=== PATIENT | female | born 1990 | race African-American/Black ===

== ENCOUNTER 2019-11-02 16:08 | Emergency (ER) | payer OTHER ==
[2019-11-02] MEDS ORDERED: SODIUM CHLORIDE 0.9% 1,000 ML IV ONE (16:51)
--- NOTE | 2019-11-02 17:09 | ED ---
Female Urogenital HPI - General Chief complaint: Abdominal Pain Stated complaint: Cramping, spotting Time Seen by Provider: 11/02/19 16:19 Source: patient, RN notes reviewed, old records reviewed Mode of arrival: ambulatory Limitations: no limitations - History of Present Illness Initial comments: This is a 29-year-old female presents today for evaluation regards to positive 12 weeks per dates. She has had one prior ultrasound early early in . This is her second with no problems the original . No recent travel history no sick contacts no abdominal pain she does get some cramping did have some spotting today some nausea with no vomiting. Denying any fevers. No other significant complaints MD Complaint: vaginal bleeding (Spotting), pelvic pain (Cramping) -: hour(s) Location: suprapubic, LLQ Radiation: suprapubic, LLQ Severity: mild Severity scale (1-10): 2 Quality: cramping Consistency: intermittent Improves with: none Worsens with: none Last Menstrual Period: 08/06/19 Patient : Yes Associated Symptoms: vaginal bleeding, nausea/vomiting, loss of appetite - Related Data Allergies Allergy/AdvReac Type Severity Reaction Status Date / Time Latex, Natural Rubber Allergy Swelling Verified 11/02/19 16:16 Review of Systems ROS Statement: Those systems with pertinent positive or pertinent negative responses have been documented in the HPI. ROS Other: All systems not noted in ROS Statement are negative. Past Medical History Past Medical History: No Reported History History of Any Multi-Drug Resistant Organisms: None Reported Additional Past Surgical History / Comment(s): D&C Past Psychological History: Depression Smoking Status: Never smoker Past Alcohol Use History: None Reported Past Drug Use History: None Reported General Exam Limitations: no limitations General appearance: alert, in no apparent distress Head exam: Present: atraumatic, normocephalic, normal inspection Eye exam: Present: normal appearance, PERRL, EOMI. Absent: scleral icterus, conjunctival injection, periorbital swelling ENT exam: Present: normal exam, mucous membranes moist Neck exam: Present: normal inspection. Absent: tenderness, meningismus, lymphadenopathy Respiratory exam: Present: normal lung sounds bilaterally. Absent: respiratory distress, wheezes, rales, rhonchi, stridor Cardiovascular Exam: Present: regular rate, normal rhythm, normal heart sounds. Absent: systolic murmur, diastolic murmur, rubs, gallop, clicks GI/Abdominal exam: Present: soft, normal bowel sounds. Absent: distended, tenderness, guarding, rebound, rigid Extremities exam: Present: normal inspection, full ROM, normal capillary refill. Absent: tenderness, pedal edema, joint swelling, calf tenderness Back exam: Present: normal inspection Neurological exam: Present: alert, oriented X3, CN II-XII intact Psychiatric exam: Present: normal affect, normal mood Skin exam: Present: warm, dry, intact, normal color. Absent: rash Course Vital Signs 11/02/19 11/02/19 16:12 19:11 Temperature 98.3 F 98 F Pulse Rate 89 82 Respiratory 20 16 Rate Blood Pressure 115/76 101/73 O2 Sat by Pulse 98 99 Oximetry Medical Decision Making - Medical Decision Making 9 female ER with early positive IUP with mild bleeding. Patient will follow up with OB as directed. Patient is in no acute distress currently no significant pain again positive IUP on ultrasound - Lab Data Result diagrams: 11/02/19 16:43 11/02/19 16:43 Lab Results 11/02/19 11/02/19 11/02/19 Range/Units 16:43 16:43 16:43 WBC 6.3 (3.8-10.6) k/uL RBC 4.59 (3.80-5.40) m/uL Hgb 13.0 (11.4-16.0) gm/dL Hct 39.9 (34.0-46.0) % MCV 86.8 (80.0-100.0) fL MCH 28.4 (25.0-35.0) pg MCHC 32.7 (31.0-37.0) g/dL RDW 12.5 (11.5-15.5) % Plt Count 351 (150-450) k/uL Neutrophils % 71 % Lymphocytes % 19 % Monocytes % 4 % Eosinophils % 3 % Basophils % 2 % Neutrophils # 4.4 (1.3-7.7) k/uL Lymphocytes # 1.2 (1.0-4.8) k/uL Monocytes # 0.2 (0-1.0) k/uL Eosinophils # 0.2 (0-0.7) k/uL Basophils # 0.1 (0-0.2) k/uL PT (9.0-12.0) sec INR (<1.2) APTT (22.0-30.0) sec Sodium 136 L (137-145) mmol/L Potassium 3.8 (3.5-5.1) mmol/L Chloride 103 (98-107) mmol/L Carbon Dioxide 23 (22-30) mmol/L Anion Gap 10 mmol/L BUN 4 L (7-17) mg/dL Creatinine 0.50 L (0.52-1.04) mg/dL Est GFR (CKD-EPI)AfAm >90 (>60 ml/min/1.73 sqM) Est GFR (CKD-EPI)NonAf >90 (>60 ml/min/1.73 sqM) Glucose 102 H (74-99) mg/dL Calcium 9.3 (8.4-10.2) mg/dL Total Bilirubin 0.3 (0.2-1.3) mg/dL AST 17 (14-36) U/L ALT 11 (4-34) U/L Alkaline Phosphatase 67 (38-126) U/L Total Protein 7.0 (6.3-8.2) g/dL Albumin 4.0 (3.5-5.0) g/dL HCG, Quant 64096.9 mIU/mL Urine Color Urine Appearance (Clear) Urine pH (5.0-8.0) Ur Specific [place] (1.001-1.035) Urine Protein (Negative) Urine Glucose (UA) (Negative) Urine Ketones (Negative) Urine Blood (Negative) Urine Nitrite (Negative) Urine Bilirubin (Negative) Urine Urobilinogen (<2.0) mg/dL Ur Leukocyte Esterase (Negative) Urine RBC (0-5) /hpf Urine WBC (0-5) /hpf Ur Squamous Epith Cells (0-4) /hpf Urine Bacteria (None) /hpf Urine Mucus (None) /hpf Urine HCG, Qual (Not Detectd) Blood Type A Positive Blood Type Recheck No Previous Record Bld Type Recheck Status [facility] ONLY 11/02/19 11/02/19 11/02/19 Range/Units 16:43 16:43 16:43 WBC (3.8-10.6) k/uL RBC (3.80-5.40) m/uL Hgb (11.4-16.0) gm/dL Hct (34.0-46.0) % MCV (80.0-100.0) fL MCH (25.0-35.0) pg MCHC (31.0-37.0) g/dL RDW (11.5-15.5) % Plt Count (150-450) k/uL Neutrophils % % Lymphocytes % % Monocytes % % Eosinophils % % Basophils % % Neutrophils # (1.3-7.7) k/uL Lymphocytes # (1.0-4.8) k/uL Monocytes # (0-1.0) k/uL Eosinophils # (0-0.7) k/uL Basophils # (0-0.2) k/uL PT 9.7 (9.0-12.0) sec INR 0.9 (<1.2) APTT 25.5 (22.0-30.0) sec Sodium (137-145) mmol/L Potassium (3.5-5.1) mmol/L Chloride (98-107) mmol/L Carbon Dioxide (22-30) mmol/L Anion Gap mmol/L BUN (7-17) mg/dL Creatinine (0.52-1.04) mg/dL Est GFR (CKD-EPI)AfAm (>60 ml/min/1.73 sqM) Est GFR (CKD-EPI)NonAf (>60 ml/min/1.73 sqM) Glucose (74-99) mg/dL Calcium (8.4-10.2) mg/dL Total Bilirubin (0.2-1.3) mg/dL AST (14-36) U/L ALT (4-34) U/L Alkaline Phosphatase (38-126) U/L Total Protein (6.3-8.2) g/dL Albumin (3.5-5.0) g/dL HCG, Quant mIU/mL Urine Color Yellow Urine Appearance Cloudy H (Clear) Urine pH 6.5 (5.0-8.0) Ur Specific [place] 1.021 (1.001-1.035) Urine Protein Trace H (Negative) Urine Glucose (UA) Negative (Negative) Urine Ketones Trace H (Negative) Urine Blood Negative (Negative) Urine Nitrite Negative (Negative) Urine Bilirubin Negative (Negative) Urine Urobilinogen <2.0 (<2.0) mg/dL Ur Leukocyte Esterase Large H (Negative) Urine RBC 4 (0-5) /hpf Urine WBC 6 H (0-5) /hpf Ur Squamous Epith Cells 5 H (0-4) /hpf Urine Bacteria Rare H (None) /hpf Urine Mucus Few H (None) /hpf Urine HCG, Qual Detected (Not Detectd) Blood Type Blood Type Recheck Bld Type Recheck Status - Radiology Data Radiology results: report reviewed (Ultrasound OB shows positive IUP), image reviewed Disposition Clinical Impression: Threatened Disposition: HOME SELF-CARE Condition: Good Instructions (If sedation given, give patient instructions): Threatened Miscarriage (ED) Is patient prescribed a controlled substance at d/c from ED?: No Referrals: Milena Duke MD [STAFF PHYSICIAN] - 1-2 days None,Stated [Primary Care Provider] - 1-2 days
[2019-11-02 17:10] LABS: Basophils # (A) 0.1 k/uL (0-0.2); Basophils % (A) 2 %; Eosinophils # (A) 0.2 k/uL (0-0.7); Eosinophils % (A) 3 %; HCT 39.9 % (34.0-46.0); Lymphocytes # (A) 1.2 k/uL (1.0-4.8); Lymphocytes % (A) 19 %; MCH 28.4 pg (25.0-35.0); MCHC 32.7 g/dL (31.0-37.0); MCV 86.8 fL (80.0-100.0); Mean Platelet Volume 7.2; Monocytes # (A) 0.2 k/uL (0-1.0); Monocytes % (A) 4 %; Neutrophils # (A) 4.4 k/uL (1.3-7.7); Neutrophils % (A) 71 %; Platelet Count 351 k/uL (150-450); RBC 4.59 m/uL (3.80-5.40); RDW 12.5 % (11.5-15.5); WBC 6.3 k/uL (3.8-10.6)
[2019-11-02 17:15] LABS: Appearance,Urine Cloudy (Clear); Bacteria,Urine Rare /hpf; Bilirubin,Urine Negative (Negative); Blood,Urine Negative (Negative); Color,Urine Yellow; Glucose,Urine (UA) Negative (Negative); Ketones,Urine Trace (Negative); Leukocyte Esterase,Urine Large (Negative); Mucus,Urine Few /hpf; Nitrite,Urine Negative (Negative); PH, Urine 6.5 (5.0-8.0); Protein,Urine Trace (Negative); RBC,Urine 4 /hpf (0-5); Specific Gravity,Urine 1.021 (1.001-1.035); Squamous Epithelial Cell,Urine 5 /hpf (0-4); Urobilinogen,Urine <2.0 mg/dL (<2.0); WBC,Urine 6 /hpf (0-5)
[2019-11-02 17:19] LABS: ALT 11 U/L (4-34); AST 17 U/L (14-36); African American GFR (CKD) >90 (>60 ml/min/1.73 sqM); Alkaline Phosphatase 67 U/L (38-126); Anion Gap 10 mmol/L; Blood Urea Nitrogen 4 mg/dL (7-17); Calcium 9.3 mg/dL (8.4-10.2); Carbon Dioxide 23 mmol/L (22-30); Chloride 103 mmol/L (98-107); Glucose 102 mg/dL (74-99); Non-African American GFR(CKD) >90 (>60 ml/min/1.73 sqM); Potassium 3.8 mmol/L (3.5-5.1); Sodium 136 mmol/L (137-145); Total Bilirubin 0.3 mg/dL (0.2-1.3)
[2019-11-02 17:36] LABS: INR 0.9 (<1.2); Partial Thromboplastin Time 25.5 sec (22.0-30.0); Prothrombin Time 9.7 sec (9.0-12.0)
[2019-11-02 18:03] LABS: HCG,Quantitative Serum 62532.9 mIU/mL
--- NOTE | 2019-11-02 18:12 | US ---
EXAMINATION TYPE: Transabdominal DATE OF EXAM: 11/02/2019 5:47 PM COMPARISON: NONE CLINICAL HISTORY: pain. Cramping and spotting, 3, para 1, miscarriage EXAM PERFORMED: Transabdominal (TA) EXAM MEASUREMENTS: GESTATIONAL AGE / DATING Physician Established: Not established yet Dates by LMP: (12 weeks/4 days) EDC: 05/12/2020 Dates by First Scan: This is 1st scan Dates by Current Scan for: (12 weeks/3 days) EDC: 05/13/2020 MATERNAL ANATOMY Uterus: 11.8 x 8.0 x 7.7cm, anteverted Right Ovary: 3.3 x 1.7 x 1.6cm Left Ovary: 2.9 x 1.4 x 2.1cm Post CDS / Adnexa: wnl Presence of free fluid: no Presence of corpus luteal cyst: not seen at this time Presence of subchorionic bleed: no GESTATION / SURVEY CRL: 5.9cm (12 weeks/3 days) Yolk Sac (normal less than 6mm): not seen Heart Rate: 162 bpm Rhythm: Normal IUP: Viable IUP Nuchal Translucency 10-14wks (normal less than 3mm): 1.2mm Date of LMP: 08/06/2019 Beta HcG (if available): Not available at time of exam Viable single IUP measuring 12 weeks 3 days with a heart rate of 162bpm and an estimated delivery la nena e of 05/13/2020. IMPRESSION: No complicating process seen.
[2019-11-02 19:11] VITALS: BP 101/73; PULSE 82; RESP 16; TEMP 98
== END 2019-11-02 19:11 | disposition home or self-care (01) ==
LOC: EC 16:08
DX: O20.0 Threatened abortion (principal); O21.9 Vomiting of pregnancy, unspecified; Z91.040 Latex allergy status; Z3A.12 12 weeks gestation of pregnancy
CPT/HCPCS: 36415; 76801; 76813; 80053; 81001; 81025; 84702; 85025; 85610; 85730; 86900; 86901; 96360; 96361; 99284

== ENCOUNTER 2019-12-01 05:54 | Emergency (ER) | payer OTHER ==
[2019-12-01 06:03] VITALS: TEMP 98.4
--- NOTE | 2019-12-01 06:20 | ED ---
General Adult HPI - General Chief complaint: Vaginal Bleeding Stated complaint: 12wks cramping/bleeding Time Seen by Provider: 12/01/19 06:06 Source: patient, RN notes reviewed Mode of arrival: ambulatory Limitations: no limitations - History of Present Illness Initial comments: 29-year-old female presents emergency Department with chief complaint of vaginal bleeding and . Patient is A1 currently 13 weeks and is scheduling an appointment with Dr. Santillan. Patient states that she has had ultrasound which showed intrauterine states that she woke up some cramping and states that her to urinate. She states she passed 2 clots but states it has stopped now. Patient denies any fevers, chills, vomiting or diarrhea she's had some mild constipation. - Related Data Previous Rx's Medication Instructions Recorded Cephalexin [Keflex] 500 mg PO Q8HR #21 cap 12/01/19 Allergies Allergy/AdvReac Type Severity Reaction Status Date / Time Latex, Natural Rubber Allergy Swelling Verified 12/01/19 06:03 Review of Systems ROS Statement: Those systems with pertinent positive or pertinent negative responses have been documented in the HPI. ROS Other: All systems not noted in ROS Statement are negative. Past Medical History Past Medical History: No Reported History History of Any Multi-Drug Resistant Organisms: None Reported Additional Past Surgical History / Comment(s): D&C, Past Psychological History: Depression Smoking Status: Never smoker Past Alcohol Use History: None Reported Past Drug Use History: None Reported General Exam Limitations: no limitations General appearance: alert, in no apparent distress Head exam: Present: atraumatic, normocephalic, normal inspection Eye exam: Present: normal appearance, PERRL, EOMI. Absent: scleral icterus, conjunctival injection, periorbital swelling ENT exam: Present: normal exam, normal oropharynx, mucous membranes moist Neck exam: Present: normal inspection, full ROM. Absent: tenderness, meningismus, lymphadenopathy Respiratory exam: Present: normal lung sounds bilaterally. Absent: respiratory distress, wheezes, rales, rhonchi, stridor Cardiovascular Exam: Present: normal rhythm, tachycardia, normal heart sounds. Absent: systolic murmur, diastolic murmur, rubs, gallop, clicks GI/Abdominal exam: Present: soft, normal bowel sounds. Absent: distended, tenderness, guarding, rebound, rigid Back exam: Absent: CVA tenderness (R), CVA tenderness (L) Course Vital Signs 12/01/19 05:58 Temperature 98.4 F Pulse Rate 114 H Respiratory 18 Rate Blood Pressure 117/83 O2 Sat by Pulse 98 Oximetry Medical Decision Making - Medical Decision Making Ultrasound showed normal heart tone, patient has evidence of urinary tract infection she was given Rocephin IM emergency from. Patient be discharged on Keflex. Patient is discharged in stable condition return parameters were discussed. - Lab Data Lab Results 12/01/19 Range/Units 06:15 Urine Color Light Yellow Urine Appearance Cloudy H (Clear) Urine pH 6.0 (5.0-8.0) Ur Specific [place] 1.007 (1.001-1.035) Urine Protein 1+ H (Negative) Urine Glucose (UA) Negative (Negative) Urine Ketones 2+ H (Negative) Urine Blood Moderate H (Negative) Urine Nitrite Negative (Negative) Urine Bilirubin Negative (Negative) Urine Urobilinogen <2.0 (<2.0) mg/dL Ur Leukocyte Esterase Large H (Negative) Urine RBC 10 H (0-5) /hpf Urine WBC >182 H (0-5) /hpf Ur Squamous Epith Cells 4 (0-4) /hpf Urine Bacteria Few H (None) /hpf Urine Mucus Rare H (None) /hpf Disposition Clinical Impression: Threatened miscarriage, UTI (urinary tract infection) Disposition: HOME SELF-CARE Condition: Stable Instructions (If sedation given, give patient instructions): Urinary Tract Infection in Women (ED) Additional Instructions: Call your [facility]IT OPERATOR to follow-up. Please return to the Emergency Department if symptoms worsen or any other concerns. Prescriptions: Cephalexin [Keflex] 500 mg PO Q8HR #21 cap Is patient prescribed a controlled substance at d/c from ED?: No Referrals: Jerome Riggs MD [Primary Care Provider] - 1-2 days Time of Disposition: 07:23
[2019-12-01 06:32] LABS: Appearance,Urine Cloudy (Clear); Bacteria,Urine Few /hpf; Bilirubin,Urine Negative (Negative); Blood,Urine Moderate (Negative); Color,Urine Light Yellow; Glucose,Urine (UA) Negative (Negative); Ketones,Urine 2+ (Negative); Leukocyte Esterase,Urine Large (Negative); Mucus,Urine Rare /hpf; Nitrite,Urine Negative (Negative); Protein,Urine 1+ (Negative); RBC,Urine 10 /hpf (0-5); Specific Gravity,Urine 1.007 (1.001-1.035); Squamous Epithelial Cell,Urine 4 /hpf (0-4); Urobilinogen,Urine <2.0 mg/dL (<2.0); WBC,Urine >182 /hpf (0-5)
[2019-12-01] MEDS ORDERED: cefTRIAXone 1,000 MG VIAL (IM USE) IM STA (06:42)
--- NOTE | 2019-12-01 07:21 | US ---
EXAMINATION TYPE: US OB limited DATE OF EXAM: 12/01/2019 COMPARISON: NONE CLINICAL HISTORY: check heart tones. Spotting, UTI, check heart tones EXAM PERFORMED: Transabdominal (TA) GESTATIONAL AGE / DATING Physician Established: (16 weeks/4 days) EDC: 05/13/20 No growth performed on today?s study per ordering physician SURVEY HEART RATE: 162 bpm RHYTHM: Normal IMPRESSION: heart rate of 162 bpm is within normal limits. Regular rhythm is seen.
[2019-12-01 07:33] VITALS: BP 118/71; PULSE 103; RESP 16
== END 2019-12-01 07:31 | disposition home or self-care (01) ==
LOC: EC 05:54
DX: O20.0 Threatened abortion (principal); O23.42 Unspecified infection of urinary tract in pregnancy, second trimester; Z3A.16 16 weeks gestation of pregnancy; Z91.040 Latex allergy status; Z98.890 Other specified postprocedural states
CPT/HCPCS: 81001; 87086; 76815; 96372; 99284; J0696

== ENCOUNTER 2019-12-15 18:42 | Outpatient (CLI) | payer OTHER ==
[2019-12-15 19:54] LABS: Appearance,Urine Cloudy (Clear); Bacteria,Urine Rare /hpf; Bilirubin,Urine Negative (Negative); Blood,Urine Moderate (Negative); Color,Urine Yellow; Glucose,Urine (UA) Negative (Negative); Ketones,Urine Negative (Negative); Leukocyte Esterase,Urine Large (Negative); Mucus,Urine Occasional /hpf; Nitrite,Urine Negative (Negative); PH, Urine 7.5 (5.0-8.0); Protein,Urine 2+ (Negative); RBC,Urine >182 /hpf (0-5); Specific Gravity,Urine 1.024 (1.001-1.035); Urobilinogen,Urine <2.0 mg/dL (<2.0); WBC,Urine 92 /hpf (0-5)
[2019-12-15 21:01] VITALS: BP 115/59; PULSE 97; RESP 16; TEMP 97.1
--- NOTE | 2019-12-22 14:57 | P.MSEPDOC ---
Presenting Problems - Arrival Data Date of Arrival on Unit: 12/15/19 Time of Arrival on Unit: 18:42 Mode of Transport: Ambulatory - Complaint OB-Reason for Admission/Chief Complaint: Pain Comment: Previous UTI that is not impoving, pain and bleeding when urinating. Medical History - Information : 3 Para: 1 Term: 1 : 0 Abortions: Spontaneous or Elective: 1 Number of Living Children: 1 - Gestational Age Gestational Age by EMMANUEL (wks/days): 18 Weeks and 4 Days Review of Systems - Review of Systems Constitutional: No problems Breast: No problems ENT: No problems Cardiovascular: No problems Respiratory: No problems Gastrointestinal: No problems Genitourinary: Dysuria, Urgency, Increased frequency Musculoskeletal: No problems Neurological: No problems Skin: No problems Vital Signs - Temperature Temperature: 97.1 F Temperature Source: Temporal Artery Scan - Pulse Right Brachial Pulse Rate: 97 Pulse Assessment Method: Automatic Cuff - Respirations Respiratory Rate: 16 Oxygen Delivery Method: Room Air O2 Sat by Pulse Oximetry: 100 - Blood Pressure Right Arm Blood Pressure: 115/59 Blood Pressure Mean: 77 Blood Pressure Source: Automatic Cuff Medical Screen Scoring (Pre) - Cervical Exam Dilation: Exam Deferred Effacement: Exam Deferred - Uterine Contractions Frequency: N/A Duration: N/A Intensity: N/A - Maternal Vital Signs Maternal Temperature: N/A Signs of Preeclampsia: N/A Maternal Respirations: N/A - Maternal Trauma Maternal Trauma: N/A - Total Score - Baby A Total Score - Baby A: 0 - Total Score - Baby B Total Score - Baby B: 0 - Total Score - Baby C Total Score - Baby C: 0 - Level of Risk - Baby A Level of Risk - Baby A: Low (0-5) - Level of Risk - Baby B Level of Risk - Baby B: Low (0-5) - Level of Risk - Baby C Level of Risk - Baby C: Low (0-5) Physician Notification (Pre) - Physician Notified Physician Notified Date: 12/15/19 Physician Notified Time: 20:38 New Order Received: Yes - Notification Comment Comment: R dopplered [id number], UA results reported, pt to finish antibiotics for UTI, call Thursday for results of urine culture. Disposition - Disposition OB Disposition: Discharge to home, Written follow up instructions reviewed Discharge Date: 12/15/19 Discharge Time: 20:45 I agree with the RN Medical Screening Exam: Yes Risk & Benefit of care provided described in d/c instruction: Yes Diagnosis: URINARY TRACT INFECTION, SITE NOT SPECIFIED
== END 2019-12-15 20:45 | disposition home or self-care (01) ==
LOC: FBPOP 18:42
PROVIDERS: ATTEND Obstetrics & Gynecology
DX: O23.42 Unspecified infection of urinary tract in pregnancy, second trimester (principal); Z3A.18 18 weeks gestation of pregnancy
CPT/HCPCS: 82731; 81001; 87086; G0463; 99213

== ENCOUNTER 2020-03-09 18:58 | Emergency (ER) | payer OTHER ==
--- NOTE | 2020-03-09 20:35 | US ---
EXAMINATION TYPE: US venous doppler duplex LE DATE OF EXAM: 03/09/2020 8:28 PM COMPARISON: NONE CLINICAL HISTORY: Lower extremity edema. Edema right thigh. Patient 7 months SIDE PERFORMED: Bilateral TECHNIQUE: The lower extremity deep venous system is examined utilizing real time linear array sonog alexandra with graded compression, doppler sonography and color-flow sonography. VESSELS IMAGED: External Iliac Vein (EIV) Common Femoral Vein Deep Femoral Vein Greater Saphenous Vein * Femoral Vein Popliteal Vein Small Saphenous Vein * Proximal Calf Veins (* superficial vessels) Right Leg: No evidence of DVT Left Leg: No evidence of DVT IMPRESSION: Normal exam. No evidence of bilateral leg deep vein thrombosis.
--- NOTE | 2020-03-09 20:43 | ED ---
Extremity Problem HPI - General Chief complaint: Extremity Problem,Nontraumatic Stated complaint: poss blood clot Time Seen by Provider: 03/09/20 19:07 Source: patient Mode of arrival: ambulatory Limitations: no limitations - History of Present Illness Initial comments: Patient is a 29-year-old female, 28 weeks presenting to emergency Department with chief complaint of possible blood clot. Patient states in the last few days she has noticed an "bump" on the right upper thigh. Patient reports she spoke with her OB, , who advised the patient to come to the ED for further evaluation. Patient does report shortness of breath but states that is her baseline due to her . Patient denies unilateral leg swelling but does report bilateral lower extremity achiness that has been gradually increasing throughout her . Patient denies hemoptysis cough, shortness of breath, chest pain. Denies any night sweats or chills. Denies any irritation - Related Data Home Medications Medication Instructions Recorded Confirmed Pnv No.95/Ferrous Fum/Folic AC 1 each PO DAILY 12/15/19 12/15/19 [ Multivitamin Tablet] Previous Rx's Medication Instructions Recorded Cephalexin [Keflex] 500 mg PO Q8HR #21 cap 12/01/19 Allergies Allergy/AdvReac Type Severity Reaction Status Date / Time Latex, Natural Rubber Allergy Swelling Verified 03/09/20 19:04 Review of Systems ROS Statement: Those systems with pertinent positive or pertinent negative responses have been documented in the HPI. ROS Other: All systems not noted in ROS Statement are negative. Past Medical History Past Medical History: No Reported History History of Any Multi-Drug Resistant Organisms: None Reported Additional Past Surgical History / Comment(s): D&C, Past Psychological History: No Psychological Hx Reported Smoking Status: Never smoker Past Alcohol Use History: None Reported Past Drug Use History: None Reported General Exam Limitations: no limitations General appearance: alert, in no apparent distress Head exam: Present: atraumatic, normocephalic, normal inspection Eye exam: Present: normal appearance, PERRL Pupils: Present: normal accommodation ENT exam: Present: normal exam, normal oropharynx, mucous membranes moist Neck exam: Present: normal inspection, full ROM Respiratory exam: Present: normal lung sounds bilaterally. Absent: respiratory distress, wheezes, rales Cardiovascular Exam: Present: regular rate, normal rhythm, normal heart sounds Extremities exam: Present: full ROM, normal capillary refill, calf tenderness (Bilateral calf tenderness), other (+2 ulnar and radial pulses bilaterally. +2 dorsalis pedis and posterior tibialis bilaterally.). Absent: normal inspection (Mass noticed on the right upper thigh, anterior aspect. No signs of cellulitic changes. Nontender.), tenderness Back exam: Present: normal inspection, full ROM Neurological exam: Present: alert, oriented X3 Psychiatric exam: Present: normal affect, normal mood Skin exam: Present: warm, dry, intact, normal color Course Vital Signs 03/09/20 18:59 Temperature 98.2 F Pulse Rate 90 Respiratory 18 Rate Blood Pressure 124/64 O2 Sat by Pulse 98 Oximetry Medical Decision Making - Medical Decision Making Patient is a 29-year-old female, 20 weeks , presenting to emergency Department with a chief complaint of possible blood clot. Patient was advised to come to the ED for ultrasound to rule out a blood clot. Patient does report shortness of breath but states that is her baseline due to her . Bilateral lower extremity achiness throughout . Bilateral lower extremity ultrasound shows no signs of a DVT. Return parameters thoroughly discussed with patient is understanding and agreeable. Patient advised to follow with her OB. Case discussed with physician. Disposition Clinical Impression: Leg pain, right Disposition: HOME SELF-CARE Condition: Serious Instructions (If sedation given, give patient instructions): Deep Vein Thrombosis (DC) Additional Instructions: Follow-up with Dr. Burrell. Return to emergency department if symptoms worsen. Is patient prescribed a controlled substance at d/c from ED?: No Referrals: None,Stated [Primary Care Provider] - 1-2 days Time of Disposition: 20:43
[2020-03-09 21:40] VITALS: BP 121/69; PULSE 85; RESP 16; TEMP 98
== END 2020-03-09 21:44 | disposition home or self-care (01) ==
LOC: EC 18:58
DX: O26.893 Other specified pregnancy related conditions, third trimester (principal); M79.604 Pain in right leg; Z3A.28 28 weeks gestation of pregnancy; Z91.040 Latex allergy status
CPT/HCPCS: 93970; 99283

== ENCOUNTER 2020-04-27 | Outpatient (CLI) | payer OTHER ==
--- NOTE | 2020-04-27 07:04 | P.MSEPDOC ---
Presenting Problems - Arrival Data Date of Arrival on Unit: 04/27/20 Time of Arrival on Unit: 02:26 Mode of Transport: Wheelchair - Complaint OB-Reason for Admission/Chief Complaint: Other Comment: swelling of feet/ankles/legs Medical History - Information : 3 Para: 1 Term: 1 : 0 Abortions: Spontaneous or Elective: 1 Number of Living Children: 1 - Gestational Age Gestational Age by EMMANUEL (wks/days): 37 Weeks and 5 Days Review of Systems - Review of Systems Constitutional: No problems Breast: No problems ENT: No problems Cardiovascular: No problems Respiratory: No problems Gastrointestinal: No problems Genitourinary: No problems Musculoskeletal: No problems Neurological: No problems Skin: No problems Vital Signs - Temperature Temperature: 97.4 F Temperature Source: Temporal Artery Scan - Pulse Right Pulse Rate: 100 Pulse Assessment Method: Pulse Oximetry - Respirations Respiratory Rate: 16 O2 Sat by Pulse Oximetry: 97 - Blood Pressure Right Arm Blood Pressure: 110/55 Blood Pressure Mean: 73 Blood Pressure Source: Automatic Cuff Medical Screen Scoring (Pre) - Cervical Exam Dilation: Exam Deferred Effacement: Exam Deferred - Uterine Contractions Frequency: N/A Duration: N/A Intensity: N/A - Maternal Vital Signs Maternal Temperature: N/A Maternal Blood Pressure: N/A Signs of Preeclampsia: N/A Maternal Respirations: N/A - Maternal Trauma Maternal Trauma: N/A - Assessment - Baby A Baseline FHR: 120 Heart Rate - NICHD Category: Category I (Normal) = 0 NST: Reactive Position: N/A Station: N/A - Total Score - Baby A Total Score - Baby A: 0 - Total Score - Baby B Total Score - Baby B: 0 - Total Score - Baby C Total Score - Baby C: 0 - Level of Risk - Baby A Level of Risk - Baby A: Low (0-5) - Level of Risk - Baby B Level of Risk - Baby B: Low (0-5) - Level of Risk - Baby C Level of Risk - Baby C: Low (0-5) Physician Notification (Pre) - Physician Notified Physician Notified Date: 04/27/20 Physician Notified Time: 03:05 - Notification Comment Comment: Dr Acevedo responded to page. Reported on pt's c/o swelling and pain in her legs/ankles. Reported on vitals, pt reproted sx after being questioned about them. Reported that pt has been on her feet all day, talking easily. Reported that pt has scheduled appt thursday. orders to d/c home with instructions. educate pt on PIH s/sx, pt is to return with new or worsening s/sx. otherwise pt is to keep scheduled appt in office on thursday. Disposition - Disposition OB Disposition: Discharge to home Discharge Date: 04/27/20 Discharge Time: :20 I agree with the RN Medical Screening Exam: Yes Risk & Benefit of care provided described in d/c instruction: Yes Diagnosis: GESTATIONAL EDEMA, THIRD TRIMESTER (Patient presents with complaints of lower extremity swelling for several hours. Patient's blood pressures normal. There is no evidence of preeclampsia. Patient instructed to restrict s alt intake, increase her fluids, and keep her regular scheduled OB appointment.)
== END 2020-04-27 03:30 | disposition home or self-care (01) ==
CPT/HCPCS: 59025; G0463; 99213

== ENCOUNTER 2020-05-05 00:50 | Inpatient (IN) | payer OTHER ==
[2020-05-05] MEDS: LACTATED RINGERS 1,000 ML IV SCH ×2 (01:15→03:13)
[2020-05-05] MEDS ORDERED: OXYTOCIN 10 UNIT/ML 1 ML VIAL IM PRN (01:31)
[2020-05-05] MEDS ORDERED: CARBOPROST TROMETHAMINE 250 MCG/ML 1 ML AMP IM PRN (01:31)
[2020-05-05] MEDS ORDERED: LIDOCAINE 0.5% (PF) 5 MG/ML (50 ML SDV) SQ PRN (01:31)
[2020-05-05] MEDS ORDERED: METHYLERGONOVINE 0.2 MG/ML 1 ML AMP IM PRN (01:31)
[2020-05-05] MEDS ORDERED: TERBUTALINE 1 MG/ML VIAL SQ PRN (01:31)
[2020-05-05] MEDS ORDERED: OXYTOCIN 30 UNITS/500 ML NS 30 UNIT in SALINE 1 500ML.BAG IV SCH (01:45)
[2020-05-05 01:51] LABS: Basophils % (A) 0 %; Eosinophils # (A) 0.3 k/uL (0-0.7); Eosinophils % (A) 3 %; HCT 31.6 % (34.0-46.0); HGB 10.2 gm/dL (11.4-16.0); Hypochromasia Slight; Lymphocytes # (A) 1.5 k/uL (1.0-4.8); Lymphocytes % (A) 14 %; MCH 27.5 pg (25.0-35.0); MCHC 32.4 g/dL (31.0-37.0); MCV 84.6 fL (80.0-100.0); Mean Platelet Volume 7.5; Monocytes # (A) 0.5 k/uL (0-1.0); Monocytes % (A) 5 %; Neutrophils % (A) 77 %; Platelet Count 311 k/uL (150-450); RBC 3.73 m/uL (3.80-5.40); RDW 14.4 % (11.5-15.5); WBC 10.4 k/uL (3.8-10.6)
[2020-05-05] MEDS ORDERED: ROPIVACAINE 5MG/ML 20ML VIAL ONE (02:09)
[2020-05-05] MEDS ORDERED: fentaNYL (PF) 50 MCG/ML 5 ML AMP ONE (02:09)
[2020-05-05] MEDS ORDERED: SODIUM CHLORIDE 0.9% 100 ML BAG ONE (02:09)
[2020-05-05] MEDS ORDERED: diphenhydrAMINE 50 MG CAP PO PRN (04:03)
[2020-05-05] MEDS ORDERED: SIMETHICONE 80 MG CHEWABLE PO PRN (04:03)
[2020-05-05] MEDS ORDERED: diphenhydrAMINE 25 MG CAP PO PRN (04:03)
[2020-05-05] MEDS ORDERED: ZOLPIDEM 5 MG TAB PO PRN (04:03)
[2020-05-05] MEDS ORDERED: LANOLIN CREAM 5 GM TUBE TOPICAL PRN (04:03)
[2020-05-05] MEDS ORDERED: HYDROCORTISONE 2.5% RECTAL CREAM 30 GM TUBE RECTAL PRN (04:03)
[2020-05-05] MEDS ORDERED: BENZOCAINE/MENTHOL SPRAY 1 GM/SPRAY AEROSOL TOPICAL PRN (04:03)
[2020-05-05] MEDS ORDERED: diphenhydrAMINE 50 MG/ML 1 ML VIAL IVP PRN ×2 (04:03)
[2020-05-05] MEDS ORDERED: ACETAMINOPHEN TAB 325 MG TAB PO PRN (04:03)
--- NOTE | 2020-05-05 04:06 | P.HPOB ---
History of Present Illness H&P Date: 05/05/20 Chief Complaint: Intrauterine term: Active labor Patient is a 30-year-old G3 3 P1 at 38 weeks gestation who ryes in active labor. She was dilated to 4 cm in my office today and she is now 6 cm. Her course was unremarkable although she did do her 1 hour Glucola screen and labs late. She had no other significant problems or concerns with the and she is feeling well at this time. An epidural is planned for pain management. Pertinent labs could A+ blood type, Rh antibody was negative, rubella was immune, hepatitis B surface antigen/RPR and GBS were all negative. A category 1 tracing is noted. Past Medical History Past Medical History: No Reported History History of Any Multi-Drug Resistant Organisms: None Reported Additional Past Surgical History / Comment(s): D&C, Past Anesthesia/Blood Transfusion Reactions: No Reported Reaction Past Psychological History: No Psychological Hx Reported Smoking Status: Never smoker Past Alcohol Use History: None Reported Past Drug Use History: None Reported - Past Family History Mother Family Medical History: Diabetes Mellitus Additional Family Medical History / Comment(s): Reported that runs in family; grandparents have Medications and Allergies Home Medications Medication Instructions Recorded Confirmed Type Pnv No.95/Ferrous Fum/Folic AC 1 each PO DAILY 12/15/19 05/05/20 History [ Multivitamin Tablet] Allergies Allergy/AdvReac Type Severity Reaction Status Date / Time Latex, Natural Rubber Allergy Swelling Verified 05/05/20 01:02 Exam Osteopathic Statement: *. No significant issues noted on an osteopathic structural exam other than those noted in the History and Physical/Consult. Vital Signs Temp Pulse Resp BP 05/05/20 01:31 99.5 F 100 15 05/05/20 01:03 99.5 F 100 20 120/7 Intake and Output 05/04/20 05/04/20 05/05/20 14:59 22:59 06:59 Other: Weight 97.522 kg - OBG Physical Exam Breast: both: normal (no masses) Abdomen: bowel sounds normal, no diffuse tenderness, no bruit present, no guarding noted, no hepatomegaly, no splenomegaly, no mass Vulva: both: normal Vagina: normal moisture, no discharge Cervix: no lesion, no discharge Uterus: normal size, normal contour Adnexa: both: normal Anus/Rectum: normal perianal skin, no rectal mass, no hemorrhoids, heme negative Results Result Diagrams: 05/05/20 01:42 Abnormal Lab Results - Last 24 Hours (Table) 05/05/20 Range/Units 01:42 RBC 3.73 L (3.80-5.40) m/uL Hgb 10.2 L (11.4-16.0) gm/dL Hct 31.6 L (34.0-46.0) % Neutrophils # 8.0 H (1.3-7.7) k/uL
--- NOTE | 2020-05-05 04:07 | P.PROBDLV ---
Vaginal Delivery Note - . Vaginal Delivery Note: Patient progressed to complete and pushing with spontaneous vaginal delivery of a viable female over a first-degree perineal laceration. Baby was delivered from straight occiput anterior position. Once head was delivered lateral movement of the shoulders was performed to easily deliver the shoulders and the remainder the baby. Mouth nares was then bulb suctioned and baby was placed on mother's abdomen where the umbilical cord was allowed to pulsate for 30 seconds prior to clamping and cutting. Nursery personnel was present and assumed care. Placenta was then delivered intact Pitocin was added to the IV. First degree laceration was then repaired in running fashion with 3-0 Vicryl following 1% Xylocaine for analgesia. Both mother and baby are stable following delivery. scores are 9 and 9 at one and 5 minutes respectively and the weight was 7 lbs. 6 oz.
[2020-05-05] MEDS ORDERED: OXYTOCIN 20 UNITS/1000 ML NS 1,000 ML IV SCH (04:15)
[2020-05-05] MEDS: IBUPROFEN 600 MG TAB PO PRN ×3 (06:15→20:32)
[2020-05-05] MEDS ORDERED: PRENATAL VIT-IRON-FOLIC ACID 1 EACH CAP PO SCH (09:00)
[2020-05-05] MEDS: SENNOSIDES-DOCUSATE SODIUM 1 EACH TAB PO SCH ×2 (09:18→20:32)
--- NOTE | 2020-05-06 06:21 | P.DS ---
Providers Date of admission: 05/05/20 01:25 Expected date of discharge: 05/06/20 Attending physician: Bert Pizarro Primary care physician: Stated None Hospital Course: Patient is doing very well day 1. She is ambulating, voiding and tolerating her diet. She voices no complaints. Vital signs are stable and afebrile. Heart regular, lungs clear, extremities without pain. Abdomen soft uterus is firm and lochia is reported light. We'll plan discharged home later today assuming baby is able to go home. Discharge instructions were thoroughly reviewed and a prescription for Motrin is for to her pharmacy. She'll follow me in 6 weeks. All questions are answered for her at this time. Patient Condition at Discharge: Good Plan - Discharge Summary New Discharge Prescriptions: New Ibuprofen [Motrin] 600 mg PO Q6HR PRN #30 tab PRN Reason: Pain No Action Pnv No.95/Ferrous Fum/Folic AC [ Multivitamin Tablet] 1 each PO DAILY Discharge Medication List Pnv No.95/Ferrous Fum/Folic AC [ Multivitamin Tablet] 1 each PO DAILY 12/15/19 [History] Ibuprofen [Motrin] 600 mg PO Q6HR PRN #30 tab 05/06/20 [Rx] Follow up Appointment(s)/Referral(s): Bert Pizarro DO [Doctor of Osteopathic Medicine] - 6 Weeks Activity/Diet/Wound Care/Special Instructions: No heavy lifting, limit stairs and driving, and pelvic rest. If any high temperatures, heavy bleeding, or severe pain call my office Discharge Disposition: HOME SELF-CARE
[2020-05-06] MEDS: IBUPROFEN 600 MG TAB PO PRN (07:13)
[2020-05-06 12:26] VITALS: BP 102/67; PULSE 74; RESP 14; TEMP 97.9
== END 2020-05-06 13:00 | disposition home or self-care (01) | DRG 807 ==
LOC: FBPOP 00:50 → 4FBP 01:25
PROVIDERS: ADMIT Obstetrics & Gynecology; ATTEND Obstetrics & Gynecology
PROC: 10E0XZZ Delivery of Products of Conception, External Approach (ICD-10-PCS; principal; 2020-05-05)
PROC: 0HQ9XZZ Repair Perineum Skin, External Approach (ICD-10-PCS; 2020-05-05)
PROC: 3E0R3BZ Introduction of Anesthetic Agent into Spinal Canal, Percutaneous Approach (ICD-10-PCS; 2020-05-05)
DX: O70.0 First degree perineal laceration during delivery (principal); Z37.0 Single live birth; Z3A.38 38 weeks gestation of pregnancy; Z79.899 Other long term (current) drug therapy; Z83.3 Family history of diabetes mellitus
CPT/HCPCS: 85025; 86850; 86900; 86901; 99213

== ENCOUNTER 2021-07-02 08:51 | Emergency (ER) | payer OTHER ==
[2021-07-02 09:01] VITALS: RESP 18; TEMP 99
[2021-07-02 10:33] LABS: Appearance,Urine Cloudy (Clear); Bacteria,Urine Rare /hpf; Bilirubin,Urine Negative (Negative); Blood,Urine Negative (Negative); Calcium Oxalate Crystals,Urine Moderate /hpf; Color,Urine Yellow; Glucose,Urine (UA) Negative (Negative); Ketones,Urine Negative (Negative); Leukocyte Esterase,Urine Large (Negative); Mucus,Urine Few /hpf; Nitrite,Urine Negative (Negative); PH, Urine 6.5 (5.0-8.0); Protein,Urine Trace (Negative); RBC,Urine 5 /hpf (0-5); Specific Gravity,Urine 1.029 (1.001-1.035); Squamous Epithelial Cell,Urine 15 /hpf (0-4); Urobilinogen,Urine <2.0 mg/dL (<2.0); WBC,Urine 5 /hpf (0-5)
[2021-07-02] MEDS ORDERED: DOXYCYCLINE 100 MG CAP PO STA (10:52)
[2021-07-02] MEDS ORDERED: cefTRIAXone 250 MG VIAL IM STA (10:52)
--- NOTE | 2021-07-02 11:16 | ED ---
General Adult HPI - General Chief complaint: ENT Stated complaint: Ear Pain, Female UG Time Seen by Provider: 07/02/21 09:05 Source: patient Mode of arrival: ambulatory Limitations: no limitations - History of Present Illness Initial comments: 31-year-old female presents for multiple complaints. Patient is complaining of bilateral ear pain. Then going on a week. Patient does have minimal congestion. No fevers. No cough. No drainage from the ears. No injury to the ears. Patient is also complaining of vaginal discharge. Patient reports she brown d unprotected intercourse last weekend he is now having white vaginal discharge with some irritation. Patient denies abdominal pain. Denies nausea vomiting.Patient has no other complaints at this time including shortness of breath, chest pain, abdominal pain, nausea or vomiting, headache, or visual changes. - Related Data Home Medications Medication Instructions Recorded Confirmed Pnv No.95/Ferrous Fum/Folic AC 1 each PO DAILY 12/15/19 05/05/20 [ Multivitamin Tablet] Previous Rx's Medication Instructions Recorded Ibuprofen [Motrin] 600 mg PO Q6HR PRN #30 tab 05/06/20 Doxycycline [Vibramycin] 100 mg PO BID 7 Days #14 cap 07/02/21 Fluticasone Nasal [place] [Flonase 1 spray EA NOSTRIL DAILY 7 Days 07/02/21 Nasal [place]] #16 gm Allergies Allergy/AdvReac Type Severity Reaction Status Date / Time Latex, Natural Rubber Allergy Swelling Verified 07/02/21 09:01 Review of Systems ROS Statement: Those systems with pertinent positive or pertinent negative responses have been documented in the HPI. ROS Other: All systems not noted in ROS Statement are negative. Past Medical History Past Medical History: No Reported History History of Any Multi-Drug Resistant Organisms: None Reported Additional Past Surgical History / Comment(s): D&C, Past Anesthesia/Blood Transfusion Reactions: No Reported Reaction Past Psychological History: No Psychological Hx Reported Smoking Status: Current some day smoker Past Alcohol Use History: None Reported Past Drug Use History: None Reported - Past Family History Mother Family Medical History: Diabetes Mellitus Additional Family Medical History / Comment(s): Reported that runs in family; grandparents have General Exam Limitations: no limitations General appearance: alert, in no apparent distress Head exam: Present: atraumatic Eye exam: Present: normal appearance, PERRL, EOMI. Absent: scleral icterus, conjunctival injection ENT exam: Present: normal exam, normal oropharynx, mucous membranes moist, TM's normal bilaterally (Nonerythematous, nonbulging), normal external ear exam Neck exam: Present: normal inspection, full ROM. Absent: tenderness Respiratory exam: Present: normal lung sounds bilaterally. Absent: respiratory distress, wheezes Cardiovascular Exam: Present: regular rate, normal rhythm, normal heart sounds GI/Abdominal exam: Present: soft, normal bowel sounds. Absent: distended, tenderness External exam: Present: normal external exam, erythema (Slight erythema noted to the left labia minora however I do not see any sores). Absent: swelling, lesions, lacerations, ecchymosis Speculum exam: Present: vaginal discharge (Patient has white vaginal discharge). Absent: erythema, cervical discharge, vaginal bleeding, foreign body By manual exam: Present: other (city planning aide offered, pt requested no city planning aide, is uncomfortable with second person in room). Absent: cervical motion tenderness Course Vital Signs 07/02/21 08:56 Temperature 99.0 F Pulse Rate 105 H Respiratory 18 Rate Blood Pressure 116/73 O2 Sat by Pulse 97 Oximetry Medical Decision Making - Medical Decision Making Tympanic membranes are unremarkable. No erythema. No bulging. Patient likely has a serous otitis and eustachian tube dysfunction. She'll be treated with nasal spray. As for vaginal discharge Trichomonas was negative. Patient did prefer to be treated empirically for gonorrhea and Chlamydia was given IM Rocephin and doxycycline as per the new guidelines. Did discuss that she cannot get on this antibiotic. She will return here for any worsening symptoms and otherwise follow-up with primary care. She will watch for results of G&C. - Lab Data Lab Results 07/02/21 07/02/21 07/02/21 Range/Units 09:33 09:33 09:33 Urine Color Yellow Urine Appearance Cloudy H (Clear) Urine pH 6.5 (5.0-8.0) Ur Specific Broadbent 1.029 (1.001-1.035) Urine Protein Trace H (Negative) Urine Glucose (UA) Negative (Negative) Urine Ketones Negative (Negative) Urine Blood Negative (Negative) Urine Nitrite Negative (Negative) Urine Bilirubin Negative (Negative) Urine Urobilinogen <2.0 (<2.0) mg/dL Ur Leukocyte Esterase Large H (Negative) Urine RBC 5 (0-5) /hpf Urine WBC 5 (0-5) /hpf Ur Squamous Epith Cells 15 H (0-4) /hpf Calcium Oxalate Crystal Moderate H (None) /hpf Urine Bacteria Rare H (None) /hpf Urine Mucus Few H (None) /hpf Urine HCG, Qual Not Detected (Not Detectd) Trichomonas Ag (Rapid) Negative (Negative) Disposition Clinical Impression: Vaginal discharge, Eustachian tube dysfunction, Serous otitis media Disposition: HOME SELF-CARE Condition: Good Instructions (If sedation given, give patient instructions): Serous Otitis Media (ED), Vaginal Discharge (ED) Additional Instructions: Please use nasal spray as directed. Watch for Follow-up with your doctor. Prescriptions: Fluticasone Nasal [place] [Flonase Nasal [place]] 1 spray EA NOSTRIL DAILY 7 Days #16 gm Doxycycline [Vibramycin] 100 mg PO BID 7 Days #14 cap Is patient prescribed a controlled substance at d/c from ED?: No Referrals: Sierra Choe MD [STAFF PHYSICIAN] - 1-2 days Time of Disposition: 11:06
[2021-07-02 11:45] VITALS: BP 124/68; PULSE 87
[2021-07-04 06:00] LABS: C. trachomatis,PCR Negative (Neg,Equiv); Chlamydia trachomatis Source Vagina; N. gonorrhoeae,PCR Negative (Neg,Equiv); Neisseria Source Vagina
== END 2021-07-02 11:45 | disposition home or self-care (01) ==
LOC: EC 08:51
DX: H65.93 Unspecified nonsuppurative otitis media, bilateral (principal); H69.90 Unspecified Eustachian tube disorder, unspecified ear; N89.8 Other specified noninflammatory disorders of vagina; F17.200 Nicotine dependence, unspecified, uncomplicated
CPT/HCPCS: 87529; 81001; 81025; 87808; 87491; 87591; 87070; 99283; 96372; J0696

== ENCOUNTER 2021-07-05 01:08 | Emergency (ER) | payer OTHER ==
[2021-07-05 01:27] VITALS: TEMP 99
[2021-07-05 02:52] LABS: ALT 23 U/L (4-34); AST 35 U/L (14-36); African American GFR (CKD) >90 (>60 ml/min/1.73 sqM); Albumin 4.6 g/dL (3.5-5.0); Alkaline Phosphatase 93 U/L (38-126); Anion Gap 12 mmol/L; Blood Urea Nitrogen 9 mg/dL (7-17); C Reactive Protein 5.7 mg/dL (<1.0); Calcium 9.8 mg/dL (8.4-10.2); Carbon Dioxide 23 mmol/L (22-30); Chloride 104 mmol/L (98-107); Glucose 111 mg/dL (74-99); Non-African American GFR(CKD) >90 (>60 ml/min/1.73 sqM); Potassium 4.1 mmol/L (3.5-5.1); Sodium 139 mmol/L (137-145); Total Bilirubin 0.3 mg/dL (0.2-1.3); Total Protein 7.8 g/dL (6.3-8.2)
[2021-07-05] MEDS ORDERED: predniSONE 20 MG TAB PO STA (03:03)
[2021-07-05] MEDS ORDERED: FLUCONAZOLE 150 MG TAB PO STA (03:42)
--- NOTE | 2021-07-05 03:45 | ED ---
General Adult HPI - General Chief complaint: Recheck/Abnormal Lab/Rx Stated complaint: Weakness, sore throat Time Seen by Provider: 07/05/21 01:31 Source: patient Mode of arrival: wheelchair Limitations: no limitations - History of Present Illness Initial comments: This patient is a 31-year-old woman who presents to have reevaluation for what she suspects is sexually-transmitted infection. The patient relates that she had been in [place] on the preceding weekend, approximately 6 days ago now and she did have unprotected sexual encounter. A few days after that she noticed that she was not feeling well. She was having some sore throat and some aching joint pains. She also thought she had developed a rash. Patient was seen here 2 days ago where she had testing done. Patient states that she is not feeling much better currently. She has not had fevers. No change in bowel movements. No vomiting. No andrew abdominal pain. -: days(s) Location: mouth, genitals Radiation: non-radiation Quality: aching Consistency: constant Improves with: none Associated Symptoms: other (Mild joint pains) Treatments Prior to Arrival: none - Related Data Home Medications Medication Instructions Recorded Confirmed Pnv No.95/Ferrous Fum/Folic AC 1 each PO DAILY 12/15/19 05/05/20 [ Multivitamin Tablet] Previous Rx's Medication Instructions Recorded Ibuprofen [Motrin] 600 mg PO Q6HR PRN #30 tab 05/06/20 Doxycycline [Vibramycin] 100 mg PO BID 7 Days #14 cap 07/02/21 Fluticasone Nasal [place] [Flonase 1 spray EA NOSTRIL DAILY 7 Days 07/02/21 Nasal [place]] #16 gm Allergies Allergy/AdvReac Type Severity Reaction Status Date / Time Latex, Natural Rubber Allergy Swelling Verified 07/05/21 01:23 Review of Systems ROS Statement: Those systems with pertinent positive or pertinent negative responses have been documented in the HPI. ROS Other: All systems not noted in ROS Statement are negative. Constitutional: Denies: fever, chills ENT: Reports: as per HPI, throat pain Respiratory: Denies: cough, dyspnea Cardiovascular: Denies: chest pain, palpitations Gastrointestinal: Denies: abdominal pain, vomiting, diarrhea Genitourinary: Reports: dysuria. Denies: urgency, frequency, hematuria, discharge Musculoskeletal: Reports: arthralgia. Denies: back pain Skin: Reports: rash. Denies: lesions Neurological: Denies: headache, weakness Past Medical History Past Medical History: No Reported History History of Any Multi-Drug Resistant Organisms: None Reported Additional Past Surgical History / Comment(s): D&C, Past Anesthesia/Blood Transfusion Reactions: No Reported Reaction Past Psychological History: No Psychological Hx Reported Smoking Status: Current some day smoker Past Alcohol Use History: None Reported Past Drug Use History: None Reported - Past Family History Mother Family Medical History: Diabetes Mellitus Additional Family Medical History / Comment(s): Reported that runs in family; grandparents have General Exam Limitations: no limitations General appearance: alert, in no apparent distress Head exam: Present: atraumatic, normocephalic Eye exam: Present: normal appearance. Absent: scleral icterus, conjunctival injection ENT exam: Present: mucous membranes moist, TM's normal bilaterally, other (Geographic tongue). Absent: mucous membranes dry Neck exam: Present: normal inspection, full ROM. Absent: tenderness, meningismus, lymphadenopathy Respiratory exam: Present: normal lung sounds bilaterally. Absent: respiratory distress, wheezes, rales, rhonchi, stridor Cardiovascular Exam: Present: regular rate, normal rhythm, normal heart sounds. Absent: systolic murmur, diastolic murmur, rubs, gallop GI/Abdominal exam: Present: soft. Absent: distended, tenderness, guarding, rebound, rigid, mass, pulsatile mass Extremities exam: Present: normal inspection, normal capillary refill. Absent: pedal edema, calf tenderness Back exam: Present: normal inspection. Absent: CVA tenderness (R), CVA tenderness (L) Neurological exam: Present: alert Skin exam: Present: warm, dry, intact, normal color. Absent: rash, erythema, urticaria, vesicles, petechiae, pallor Course Vital Signs 07/05/21 07/05/21 01:23 03:55 Temperature 99.0 F Pulse Rate 103 H 95 Respiratory 16 18 Rate Blood Pressure 118/73 120/79 O2 Sat by Pulse 100 99 Oximetry Medical Decision Making - Medical Decision Making This patient is 31-year-old woman here with a number of complaints including sore throat, joint pains, malaise, mild dysuria. Patient appears she may have some reactive arthritis. The skin findings are not classic of STI. The patient did receive testing and treatment 2 days ago for possibility of GC/chlamydial infection. Discussed appropriate further care and follow-up. - Lab Data Result diagrams: 07/05/21 02:03 Lab Results 07/05/21 Range/Units 02:03 Sodium 139 (137-145) mmol/L Potassium 4.1 (3.5-5.1) mmol/L Chloride 104 (98-107) mmol/L Carbon Dioxide 23 (22-30) mmol/L Anion Gap 12 mmol/L BUN 9 (7-17) mg/dL Creatinine 0.73 (0.52-1.04) mg/dL Est GFR (CKD-EPI)AfAm >90 (>60 ml/min/1.73 sqM) Est GFR (CKD-EPI)NonAf >90 (>60 ml/min/1.73 sqM) Glucose 111 H (74-99) mg/dL Calcium 9.8 (8.4-10.2) mg/dL Total Bilirubin 0.3 (0.2-1.3) mg/dL AST 35 (14-36) U/L ALT 23 (4-34) U/L Alkaline Phosphatase 93 (38-126) U/L C-Reactive Protein 5.7 H (<1.0) mg/dL Total Protein 7.8 (6.3-8.2) g/dL Albumin 4.6 (3.5-5.0) g/dL Disposition Clinical Impression: Mickie infection of genital region, Geographic tongue Disposition: HOME SELF-CARE Condition: Good Instructions (If sedation given, give patient instructions): Yeast Infection (ED) Is patient prescribed a controlled substance at d/c from ED?: No Referrals: None,Stated [Primary Care Provider] - 1-2 days Ann Landaverde MD [REFERRING] - 1-2 days
[2021-07-05 04:08] VITALS: BP 120/79; PULSE 95; RESP 18
== END 2021-07-05 04:00 | disposition home or self-care (01) ==
LOC: EC 01:08
DX: B37.49 Other urogenital candidiasis (principal); K14.1 Geographic tongue; F17.200 Nicotine dependence, unspecified, uncomplicated; Z79.1 Long term (current) use of non-steroidal anti-inflammatories (NSAID); Z83.3 Family history of diabetes mellitus; Z91.040 Latex allergy status
CPT/HCPCS: 36415; 80053; 86140; 87040; 99283; J7512

== ENCOUNTER 2023-02-12 00:30 | Emergency (ER) | payer OTHER ==
[2023-02-12 00:50] VITALS: BP 122/76; RESP 18; TEMP 98.3
[2023-02-12] MEDS ORDERED: IBUPROFEN 800 MG TAB PO STA (01:10)
[2023-02-12] MEDS ORDERED: AMOXIC-POT CLAV 875-125MG 1 EACH TAB PO STA (01:10)
--- NOTE | 2023-02-12 01:19 | ED ---
General Adult HPI - General Chief complaint: ENT Stated complaint: R ear drainage Time Seen by Provider: 02/12/23 00:54 Source: patient, RN notes reviewed, old records reviewed Mode of arrival: ambulatory Limitations: no limitations - History of Present Illness Initial comments: Patient is a 32-year-old female who has past medical history remarkable for recent wisdom tooth removal last week who presents emergency Department complaining of drainage out of her right ear. No stool was a little bit bloody but mostly clear drainage from her right ear as well as a fullness sensation in the right ear and some tenderness around the ear. Denies any recent swimming or water exposure. States she completed a course of amoxicillin after the recent tooth removal. Denies any fevers, chills, sick contacts. Denies any nasal congestion, cough, sore throat. Denies any difficulty breathing. Denies any nausea, vomiting, abdominal pain, diarrhea. Has no other acute complaint at this time. States she has been using Motrin 800 for pain control but presents now over concern for possible infection in her right ear. - Related Data Home Medications Medication Instructions Recorded Confirmed Pnv No.95/Ferrous Fum/Folic AC 1 each PO DAILY 12/15/19 05/05/20 [ Multivitamin Tablet] Previous Rx's Medication Instructions Recorded Ibuprofen [Motrin] 600 mg PO Q6HR PRN #30 tab 05/06/20 Doxycycline [Vibramycin] 100 mg PO BID 7 Days #14 cap 07/02/21 Fluticasone Nasal [place] [Flonase 1 spray EA NOSTRIL DAILY 7 Days 07/02/21 Nasal [place]] #16 gm Ibuprofen [Motrin] 800 mg PO Q8HR PRN #30 tab 12/04/22 Ondansetron Odt [Zofran Odt] 4 mg PO Q8HR PRN #10 tab 12/04/22 Amoxic-Pot Clav 875-125Mg 1 tab PO Q12HR 5 Days #10 tab 02/12/23 [Augmentin 875-125] Ibuprofen [Motrin] 800 mg PO Q8H 14 Days #42 tab 02/12/23 Ofloxacin 0.3% Otic Soln [Floxin 5 drops RIGHT EAR BID 7 Days #5 ml 02/12/23 0.3% Otic Soln] Allergies Allergy/AdvReac Type Severity Reaction Status Date / Time Latex, Natural Rubber Allergy Swelling Verified 02/12/23 00:46 peanut Allergy Swelling Verified 02/12/23 00:46 shellfish derived [Shellfish] Allergy Swelling Verified 02/12/23 00:46 Review of Systems ROS Statement: Those systems with pertinent positive or pertinent negative responses have been documented in the HPI. Review of Systems: CONST: Denies fever EYES: Denies blurry vision ENT: Endorses right ear discharge, pain C/V: Denies Chest pain RESP: Denies shortness of breath GI: Denies abdominal pain : Denies dysuria SKIN: Denies rash. MSK: Denies joint pain. NEURO: Denies headache ROS Other: All systems not noted in ROS Statement are negative. Past Medical History Past Medical History: No Reported History History of Any Multi-Drug Resistant Organisms: None Reported Additional Past Surgical History / Comment(s): D&C, Past Anesthesia/Blood Transfusion Reactions: No Reported Reaction Past Psychological History: No Psychological Hx Reported Smoking Status: Current some day smoker Past Alcohol Use History: Occasional Past Drug Use History: None Reported - Past Family History Mother Family Medical History: Diabetes Mellitus Additional Family Medical History / Comment(s): Reported that runs in family; grandparents have General Exam - General Exam Comments Initial Comments: General: Appears in no acute distress. HEAD: Normal with no signs of head trauma. EYES: EOMI. ENT: Hearing grossly intact. Left ear unremarkable on exam. Normal tympanic membrane. Ear canal clear. Right ear canal full with a clear serous fluid. Tympanic membrane appears to be intact. Erythematous right ear canal. Tenderness with movement of the pinna of the right ear. No tenderness with movement of the tragus. Nontender with palpation of bilateral mastoid processes. No stridor. Posterior oropharynx within acceptable limits. No evidence of edema neuro cavity. Was to the teeth surgical sites appear clean without any obvious infection. No tongue swelling. Uvula midline. RESPIRATORY: No respiratory distress. C/V: Regular rate and rhythm. ABD: Abdomen is nondistended. EXT: No obvious deformity. SKIN: No rashes or lesions observed on exposed skin. NEURO: Alert and oriented. Limitations: no limitations Course Vital Signs 02/12/23 00:47 Temperature 98.3 F Pulse Rate 78 Respiratory 18 Rate Blood Pressure 122/76 O2 Sat by Pulse 98 Oximetry Medical Decision Making - Medical Decision Making Was pt. sent in by a medical professional or institution ([facility], [facility], urgent care, hospital, or fci...) When possible be specific @ -No Did you speak to anyone other than the patient for history (EMS, parent, family, police, friend...)? What history was obtained from this source @ -No Did you review nursing and triage notes (agree or disagree)? Why? @ -I reviewed and agree with nursing and triage notes Were old charts reviewed (outside hosp., previous admission, EMS record, old EKG, old radiological studies, urgent care reports/EKG's, fci records)? Report findings @ -No old charts were reviewed Differential Diagnosis (chest pain, altered mental status, abdominal pain women, abdominal pain men, vaginal bleeding, weakness, fever, dyspnea, syncope, headache, dizziness, GI bleed, back pain, seizure, CVA, palpatations, mental health, musculoskeletal)? @ -Otitis media, otitis externa, URI, mastoiditis. This list is not all inclusive. EKG interpreted by me (3pts min.). @ -None done X-rays interpreted by me (1pt min.). @ -None done CT interpreted by me (1pt min.). @ -None done U/S interpreted by me (1pt. min.). @ -None done What testing was considered but not performed or refused? (CT, X-rays, U/S, labs)? Why? @ -None What meds were considered but not given or refused? Why? @ -None Did you discuss the management of the patient with other professionals (professionals i.e. [facility], [facility], lab, RT, psych nurse, social science research assistant, blue line hanger, teacher, classifications officer cc/cm, onsite case manager)? Give summary @ -No Was smoking cessation discussed for >3mins.? @ -No Was critical care preformed (if so, how long)? @ -No Were there social determinants of health that impacted care today? How? (Homelessness, low income, unemployed, alcoholism, drug addiction, transportation, low edu. Level, literacy, decrease access to med. care, [facility], rehab)? @ -No Was there de-escalation of care discussed even if they declined (Discuss DNR or withdrawal of care, Hospice)? DNR status @ -No What co-morbidities impacted this encounter? (DM, HTN, Smoking, COPD, CAD, Cancer, CVA, ARF, Chemo, Hep., AIDS, mental health diagnosis, sleep apnea, morbid obesity)? @ -None Was patient admitted / discharged? Hospital course, mention meds given and route, prescriptions, significant lab abnormalities, going to OR and other pertinent info. @ -Based on the patient's presentation and physical exam, does appear she has otitis externa of the right ear. She'll be started on ofloxacin drops. She'll be given 100 mg of Motrin for analgesia. Due to the recent wisdom teeth removal, I will extend oral antibiotic since well by 5 days and she'll be started on Augmentin empirically. Discussed following up with oral surgery as well as an ENT. She was in agreement with this plan. Vital signs within acceptable limits. Strict return precautions discussed. No evidence of intraoral infection, ludwigs angina, mastoiditis at this time. I will provide the patient with a prescription for Augmentin, ofloxacin drops, Motrin. I instructed the patient to follow up with their PCP in the next 1-3 days. I provided contact information for follow up with ENT. I explained that the patient should return to the emergency department if they experience any worsening symptoms. Strict return precautions were discussed with the patient. The patient expressed understanding of these instructions. I answered all questions that the patient had. The patient was discharged home in good condition with their prescriptions and follow up information. Undiagnosed new problem with uncertain prognosis? @ -No Drug Therapy requiring intensive monitoring for toxicity (Heparin, Nitro, Insulin, Cardizem)? @ -No Were any procedures done? @ -No Diagnosis/symptom? @ -Right otitis externa Acute, or Chronic, or Acute on Chronic? @ -Acute Uncomplicated (without systemic symptoms) or Complicated (systemic symptoms)? @ -Uncomplicated Side effects of treatment? @ -No Exacerbation, Progression, or Severe Exacerbation? @ -No Poses a threat to life or bodily function? How? (Chest pain, [place], [place], pneumonia, PE, COPD, DKA, ARF, appy, cholecystitis, CVA, Diverticulitis, Homicidal, Suicidal, threat to staff... and all critical care pts) @ -No Disposition Clinical Impression: Otitis externa Disposition: HOME SELF-CARE Instructions (If sedation given, give patient instructions): [facility] (ED) Prescriptions: Amoxic-Pot Clav 875-125Mg [Augmentin 875-125] 1 tab PO Q12HR 5 Days #10 tab Ofloxacin 0.3% Otic Soln [Floxin 0.3% Otic Soln] 5 drops RIGHT EAR BID 7 Days #5 ml Ibuprofen [Motrin] 800 mg PO Q8H 14 Days #42 tab Is patient prescribed a controlled substance at d/c from ED?: No Referrals: Jerome Riggs MD [Primary Care Provider] - 1-2 days Jonathan Cueva MD [STAFF PHYSICIAN] - 1-2 days Time of Disposition: 01:10
[2023-02-12 01:33] VITALS: PULSE 70
== END 2023-02-12 01:34 | disposition home or self-care (01) ==
LOC: EC 00:30
DX: H60.91 Unspecified otitis externa, right ear (principal); F17.200 Nicotine dependence, unspecified, uncomplicated; Z91.040 Latex allergy status; Z91.010 Allergy to peanuts; Z91.013 Allergy to seafood
CPT/HCPCS: 99282

== ENCOUNTER 2023-06-07 23:43 | Emergency (ER) | payer OTHER ==
[2023-06-07 23:50] VITALS: RESP 18; TEMP 99
[2023-06-08] MEDS ORDERED: predniSONE 20 MG TAB PO STA (04:06)
--- NOTE | 2023-06-08 04:06 | ED ---
URI HPI - General Chief Complaint: Upper Respiratory Infection Stated Complaint: chest pain Time Seen by Provider: 06/08/23 01:29 Source: patient Mode of arrival: ambulatory Limitations: no limitations - History of Present Illness Initial Comments: This patient is a 33-year-old woman who presents to have evaluation of cough that started about 3 days ago. She states that initially it was just a cough but now she is having some associated substernal burning chest pain and bilateral rib aches. She is starting to bring up some phlegm occasionally with cough. No hemoptysis. She has not noted fever or chills. No leg pain or swelling. MD Complaint: cough Onset/Timin -: days(s) Severity: moderate Quality: burning, aching Consistency: constant Improves With: nothing Worsens With: nothing Associated Symptoms: cough, chest pain Treatments Prior to Arrival: none - Related Data Home Medications Medication Instructions Recorded Confirmed Pnv No.95/Ferrous Fum/Folic AC 1 each PO DAILY 12/15/19 05/05/20 [ Multivitamin Tablet] Previous Rx's Medication Instructions Recorded Ibuprofen [Motrin] 600 mg PO Q6HR PRN #30 tab 05/06/20 Doxycycline [Vibramycin] 100 mg PO BID 7 Days #14 cap 07/02/21 Fluticasone Nasal [place] [Flonase 1 spray EA NOSTRIL DAILY 7 Days 07/02/21 Nasal [place]] #16 gm Ibuprofen [Motrin] 800 mg PO Q8HR PRN #30 tab 12/04/22 Ondansetron Odt [Zofran Odt] 4 mg PO Q8HR PRN #10 tab 12/04/22 Amoxic-Pot Clav 875-125Mg 1 tab PO Q12HR 5 Days #10 tab 02/12/23 [Augmentin 875-125] Ibuprofen [Motrin] 800 mg PO Q8H 14 Days #42 tab 02/12/23 Ofloxacin 0.3% Otic Soln [Floxin 5 drops RIGHT EAR BID 7 Days #5 ml 02/12/23 0.3% Otic Soln] Albuterol Inhaler [Ventolin Hfa 1 - 2 puff INHALATION Q6HR PRN #1 06/08/23 Inhaler] each Benzonatate [Tessalon Perles] 100 mg PO TID PRN #20 capsule 06/08/23 predniSONE [Deltasone] 20 mg PO BID #8 tab 06/08/23 Allergies Allergy/AdvReac Type Severity Reaction Status Date / Time Latex, Natural Rubber Allergy Swelling Verified 06/07/23 23:50 peanut Allergy Swelling Verified 06/07/23 23:50 shellfish derived [Shellfish] Allergy Swelling Verified 06/07/23 23:50 Review of Systems ROS Statement: Those systems with pertinent positive or pertinent negative responses have been documented in the HPI. ROS Other: All systems not noted in ROS Statement are negative. Constitutional: Denies: fever, chills, weakness ENT: Denies: throat pain Respiratory: Reports: as per HPI, cough. Denies: dyspnea, wheezes, hemoptysis Cardiovascular: Reports: as per HPI, chest pain. Denies: palpitations, edema, syncope Gastrointestinal: Denies: abdominal pain, nausea, vomiting, diarrhea Genitourinary: Denies: dysuria, hematuria Musculoskeletal: Denies: back pain Skin: Denies: rash Neurological: Denies: headache, weakness Past Medical History Past Medical History: No Reported History History of Any Multi-Drug Resistant Organisms: None Reported Additional Past Surgical History / Comment(s): D&C, Past Anesthesia/Blood Transfusion Reactions: No Reported Reaction Past Psychological History: No Psychological Hx Reported Smoking Status: Current some day smoker Past Alcohol Use History: Occasional Past Drug Use History: None Reported - Past Family History Mother Family Medical History: Diabetes Mellitus Additional Family Medical History / Comment(s): Reported that runs in family; grandparents have General Exam Limitations: no limitations General appearance: alert, in no apparent distress Head exam: Present: atraumatic, normocephalic Eye exam: Present: normal appearance. Absent: scleral icterus, conjunctival injection ENT exam: Present: normal oropharynx Neck exam: Present: normal inspection, full ROM. Absent: meningismus Respiratory exam: Present: normal lung sounds bilaterally. Absent: respiratory distress, wheezes, rales, rhonchi, stridor Cardiovascular Exam: Present: regular rate, normal rhythm, normal heart sounds. Absent: systolic murmur, diastolic murmur, rubs, gallop GI/Abdominal exam: Present: soft. Absent: distended, tenderness, guarding, rebound, rigid, mass Extremities exam: Present: normal inspection, normal capillary refill. Absent: pedal edema, calf tenderness Back exam: Present: normal inspection. Absent: CVA tenderness (R) Neurological exam: Present: alert Skin exam: Present: warm, dry, intact, normal color. Absent: rash Course Vital Signs 06/07/23 06/08/23 06/08/23 23:47 02:10 04:21 Temperature 99 F Pulse Rate 89 86 Respiratory 18 18 18 Rate Blood Pressure 125/76 126/87 O2 Sat by Pulse 99 100 Oximetry Medical Decision Making - Medical Decision Making The patient had chest x-ray which I interpreted as being negative for acute infiltrate, pneumothorax, congestive heart failure Was pt. sent in by a medical professional or institution (, [facility], [facility], urgent care, hospital, or fdc...) When possible be specific @ -[No] Did you speak to anyone other than the patient for history (EMS, parent, family, police, friend...)? What history was obtained from this source @ -[No] Did you review nursing and triage notes (agree or disagree)? Why? @ -[I reviewed and agree with nursing and triage notes] Were old charts reviewed (outside hosp., previous admission, EMS record, old EKG, old radiological studies, urgent care reports/EKG's, fdc records)? Report findings @ -[No old charts were reviewed] Differential Diagnosis (chest pain, altered mental status, abdominal pain women, abdominal pain men, vaginal bleeding, weakness, fever, dyspnea, syncope, headache, dizziness, GI bleed, back pain, seizure, CVA, palpatations, mental health, musculoskeletal)? @ -[Differential Chest Pain: Stable Angina, Unstable Angina, STEMI, NSTEMI Aortic Dissection, Pneumothorax, Musculoskeletal, Esophageal Spasm GERD, Cholecystitis, Pancreatitis, Zoster, this is not meant to be an all-inclusive list. EKG interpreted by me (3pts min.). @ -[ X-rays interpreted by me (1pt min.). @ -[I interpreted as above CT interpreted by me (1pt min.). @ -[None done] U/S interpreted by me (1pt. min.). @ -[None done] What testing was considered but not performed or refused? (CT, X-rays, U/S, labs)? Why? @ -[None] What meds were considered but not given or refused? Why? @ -[None] Did you discuss the management of the patient with other professionals (professionals i.e. , PA, [facility], lab, RT, psych nurse, rn social work, quality manager, teacher, chief communications officer, director of casework)? Give summary @ -[No] Was smoking cessation discussed for >3mins.? @ -[No] Was critical care preformed (if so, how long)? @ -[No] Were there social determinants of health that impacted care today? How? (Homelessness, low income, unemployed, alcoholism, drug addiction, transportation, low edu. Level, literacy, decrease access to med. care, fpc, rehab)? @ -[No] Was there de-escalation of care discussed even if they declined (Discuss DNR or withdrawal of care, Hospice)? DNR status @ -[No] What co-morbidities impacted this encounter? (DM, HTN, Smoking, COPD, CAD, Cancer, CVA, ARF, Chemo, Hep., AIDS, mental health diagnosis, sleep apnea, morbid obesity)? @ -[None] Was patient admitted / discharged? Hospital course, mention meds given and route, prescriptions, significant lab abnormalities, going to OR and other pertinent info. @ -[This patient is 33-year-old woman presenting with 3 days of cough and chest pains now. Physical exam and history are consistent with upper respiratory/bronchitis. The patient to have a course of outpatient care and we discussed appropriate follow-up as well as return parameters. Undiagnosed new problem with uncertain prognosis? @ -[No] Drug Therapy requiring intensive monitoring for toxicity (Heparin, Nitro, Insulin, Cardizem)? @ -[No] Were any procedures done? @ -[No] Diagnosis/symptom? @ -[Acute bronchitis Acute, or Chronic, or Acute on Chronic? @ -[default] Uncomplicated (without systemic symptoms) or Complicated (systemic symptoms)? @ -[Uncomplicated Side effects of treatment? @ -[No] Exacerbation, Progression, or Severe Exacerbation? @ -[No] Poses a threat to life or bodily function? How? (Chest pain, [place], [place], pneumonia, PE, COPD, DKA, ARF, appy, cholecystitis, CVA, Diverticulitis, Homicidal, Suicidal, threat to staff... and all critical care pts) @ -[No] - Lab Data Lab Results 06/08/23 Range/Units 02:15 Coronavirus (PCR) Not Detected (Not Detectd) Disposition Clinical Impression: Bronchitis Disposition: HOME SELF-CARE Condition: Good Instructions (If sedation given, give patient instructions): Acute Bronchitis (ED) Prescriptions: predniSONE [Deltasone] 20 mg PO BID #8 tab Benzonatate [Tessalon Perles] 100 mg PO TID PRN #20 capsule PRN Reason: Cough Albuterol Inhaler [Ventolin Hfa Inhaler] 1 - 2 puff INHALATION Q6HR PRN #1 each PRN Reason: Wheezing Is patient prescribed a controlled substance at d/c from ED?: No Referrals: Jerome Riggs MD [Primary Care Provider] - 1-2 days
[2023-06-08 04:24] VITALS: BP 126/87; PULSE 86
--- NOTE | 2023-06-08 04:36 | XR ---
EXAM: XR Chest, 2 Views CLINICAL HISTORY: ITS.REASON XR Reason: cough TECHNIQUE: Frontal and lateral views of the chest. COMPARISON: No relevant prior studies available. FINDINGS: Lungs: No consolidation. No overt edema. Pleural space: No pleural effusion. No pneumothorax. Heart: Unremarkable. No cardiomegaly. Bones/joints: Unremarkable. No fracture or malalignment. IMPRESSION: No acute cardiopulmonary abnormality.
== END 2023-06-08 04:23 | disposition home or self-care (01) ==
LOC: EC 23:43
DX: J40 Bronchitis, not specified as acute or chronic (principal); F17.200 Nicotine dependence, unspecified, uncomplicated; Z91.040 Latex allergy status; Z91.010 Allergy to peanuts; Z91.013 Allergy to seafood; Z20.822 Contact with and (suspected) exposure to COVID-19
CPT/HCPCS: 87635; 71046; 99285; J7512

== ENCOUNTER 2023-09-06 15:32 | Emergency (ER) | payer OTHER ==
[2023-09-06 15:38] VITALS: RESP 18
[2023-09-06] MEDS ORDERED: SODIUM CHLORIDE 0.9% 1,000 ML IV ONE (16:15)
[2023-09-06 16:48] LABS: Basophils % (A) 0 %; Eosinophils # (A) 0.1 k/uL (0-0.7); Eosinophils % (A) 2 %; HCT 40.2 % (34.0-46.0); HGB 13.1 gm/dL (11.4-16.0); Lymphocytes # (A) 1.7 k/uL (1.0-4.8); Lymphocytes % (A) 31 %; MCH 28.7 pg (25.0-35.0); MCHC 32.6 g/dL (31.0-37.0); Mean Platelet Volume 7.2; Monocytes # (A) 0.3 k/uL (0-1.0); Monocytes % (A) 5 %; Neutrophils # (A) 3.2 k/uL (1.3-7.7); Neutrophils % (A) 59 %; Platelet Count 320 k/uL (150-450); RBC 4.57 m/uL (3.80-5.40); RDW 12.9 % (11.5-15.5); WBC 5.3 k/uL (3.8-10.6)
[2023-09-06 17:01] LABS: ALT 18 U/L (4-34); AST 17 U/L (14-36); African American GFR (CKD) >90 (>60 ml/min/1.73 sqM); Albumin 4.3 g/dL (3.5-5.0); Alkaline Phosphatase 76 U/L (38-126); Anion Gap 11 mmol/L; Blood Urea Nitrogen 9 mg/dL (7-17); Calcium 9.3 mg/dL (8.4-10.2); Carbon Dioxide 24 mmol/L (22-30); Chloride 104 mmol/L (98-107); Glucose 94 mg/dL (74-99); Non-African American GFR(CKD) >90 (>60 ml/min/1.73 sqM); Potassium 3.7 mmol/L (3.5-5.1); Sodium 139 mmol/L (137-145); Total Bilirubin 0.4 mg/dL (0.2-1.3)
[2023-09-06 17:04] LABS: Appearance,Urine Cloudy (Clear); Bilirubin,Urine Negative (Negative); Blood,Urine Negative (Negative); Color,Urine Light Yellow; Glucose,Urine (UA) Negative (Negative); Ketones,Urine Negative (Negative); Leukocyte Esterase,Urine Large (Negative); Mucus,Urine Rare /hpf; Nitrite,Urine Negative (Negative); Protein,Urine Negative (Negative); RBC,Urine 6 /hpf (0-5); Squamous Epithelial Cell,Urine 10 /hpf (0-4); Urobilinogen,Urine <2.0 mg/dL (<2.0); WBC,Urine 9 /hpf (0-5)
[2023-09-06 17:17] LABS: HCG,Quantitative Serum 50.2 mIU/mL
--- NOTE | 2023-09-06 17:47 | US ---
EXAMINATION TYPE: Transabdominal DATE OF EXAM: 09/06/2023 5:33 PM COMPARISON: NONE for this gestation CLINICAL INDICATION: Female, 33 years old with history of RLQ abdominal pain; Pain. Hx D and C. A1. EXAM PERFORMED: Transvaginal (TV) and Transabdominal (TA) EXAM MEASUREMENTS: GESTATIONAL AGE / DATING Physician Established: Not yet established. Dates by LMP: (5 weeks/2 days) EDC: 05/06/2024 Dates by First Scan: This is first scan Dates by Current Scan for: No IUP seen at this time. MATERNAL ANATOMY Uterus: 8.7 x 5.6 x 4.6 cm. Endometrium measures 1.7 cm. Appears very heterogeneous. Hypoechoic ar ea seen in cervix: 1.1 x 1.0 x 0.9 cm. Additional subcentimeter anechoic areas seen in cervix. Right Ovary: 3.6 x 3.1 x 2.2 cm. Area of mixed echogenicity and peripheral vascularity seen within right ovary: 2.0 x 1.9 x 1.7 cm. Left Ovary: Not seen. Post CDS / Adnexa: Free fluid seen in right adnexa. Presence of free fluid: Yes in right adnexa. Presence of corpus luteal cyst: *Possible within right ovary versus other etiology, area of mixed ech ogenicity and peripheral vascularity seen within right ovary: 2.0 x 1.9 x 1.7 cm. Presence of subchorionic bleed: N/A GESTATION / SURVEY CRL: Not seen MSD: Not seen Yolk Sac (normal less than 6mm): Not seen IUP: No IUP seen at this time Date of LMP: 07/31/2023 Beta HcG (if available): 50.2 mIU/mL IMPRESSION: No evidence of intrauterine gestational sac in this patient with a positive B-hCG. This can be seen in early , ectopic and spontaneous . Follow up pelvic ultrasound in 5-7 da ys and serial beta hCG studies are recommended.
--- NOTE | 2023-09-06 18:23 | ED ---
General Adult HPI - General Chief complaint: Abdominal Pain Stated complaint: Abd Pain, Cramping Time Seen by Provider: 09/06/23 16:14 Source: patient, RN notes reviewed Mode of arrival: ambulatory Limitations: no limitations - History of Present Illness Initial comments: 33-year-old -[place] female who is A1 presents to the emergency department with a chief complaint of vaginal bleeding. Patient's last menstrual period was 07/31/2023. She reports she had a positive test approximately 3 days ago. She reports light pink vaginal bleeding and right lower quadrant abdominal cramping. Denies dizziness, lightheadedness, fatigue. Patient does not have established [facility] SAW OPERATOR. Patient denies history of ectopic however she has had an elective D&C. - Related Data Home Medications Medication Instructions Recorded Confirmed Pnv No.95/Ferrous Fum/Folic AC 1 each PO DAILY 12/15/19 05/05/20 [ Multivitamin Tablet] Previous Rx's Medication Instructions Recorded Ibuprofen [Motrin] 600 mg PO Q6HR PRN #30 tab 05/06/20 Doxycycline [Vibramycin] 100 mg PO BID 7 Days #14 cap 07/02/21 Fluticasone Nasal [place] [Flonase 1 spray EA NOSTRIL DAILY 7 Days 07/02/21 Nasal [place]] #16 gm Ibuprofen [Motrin] 800 mg PO Q8HR PRN #30 tab 12/04/22 Ondansetron Odt [Zofran Odt] 4 mg PO Q8HR PRN #10 tab 12/04/22 Amoxic-Pot Clav 875-125Mg 1 tab PO Q12HR 5 Days #10 tab 02/12/23 [Augmentin 875-125] Ibuprofen [Motrin] 800 mg PO Q8H 14 Days #42 tab 02/12/23 Ofloxacin 0.3% Otic Soln [Floxin 5 drops RIGHT EAR BID 7 Days #5 ml 02/12/23 0.3% Otic Soln] Albuterol Inhaler [Ventolin Hfa 1 - 2 puff INHALATION Q6HR PRN #1 06/08/23 Inhaler] each Benzonatate [Tessalon Perles] 100 mg PO TID PRN #20 capsule 06/08/23 predniSONE [Deltasone] 20 mg PO BID #8 tab 06/08/23 Cephalexin [Keflex] 500 mg PO BID #10 cap 11/12/23 Xvs-Zytb-Urvcr Acid 1 each PO DAILY #30 cap 09/06/23 [-U Capsule] Allergies Allergy/AdvReac Type Severity Reaction Status Date / Time Latex, Natural Rubber Allergy Swelling Verified 09/06/23 15:38 peanut Allergy Swelling Verified 09/06/23 15:38 shellfish derived [Shellfish] Allergy Swelling Verified 09/06/23 15:38 Review of Systems ROS Statement: Those systems with pertinent positive or pertinent negative responses have been documented in the HPI. ROS Other: All systems not noted in ROS Statement are negative. Past Medical History Past Medical History: No Reported History History of Any Multi-Drug Resistant Organisms: None Reported Additional Past Surgical History / Comment(s): D&C, Past Anesthesia/Blood Transfusion Reactions: No Reported Reaction Past Psychological History: No Psychological Hx Reported Smoking Status: Current some day smoker, Former smoker Past Alcohol Use History: Occasional Past Drug Use History: None Reported - Past Family History Mother Family Medical History: Diabetes Mellitus Additional Family Medical History / Comment(s): Reported that runs in family; grandparents have General Exam - General Exam Comments Initial Comments: General: Alert, in no acute distress Head: atraumatic normocephalic. Eyes PERRL, EOMI intact, mucous membranes moist Respiratory: Lungs clear to auscultation bilaterally Cardiovascular: Heart rate regular rate and rhythm Abdominal: Soft without guarding or rebound Extremities: Normal inspection with full range of motion and normal capillary refill Neuroogic: alert and oriented 3, CN II-XII intact, able to ambulate with steady gait Skin: warm dry and intact with normal color Limitations: no limitations Course Vital Signs 09/06/23 09/06/23 15:34 18:46 Temperature 98.5 F 98.1 F Pulse Rate 86 78 Respiratory 18 18 Rate Blood Pressure 120/80 136/78 O2 Sat by Pulse 99 97 Oximetry Medical Decision Making - Medical Decision Making Was pt. sent in by a medical professional or institution (, PA, ACCOUNT SERVICES COORDINATOR, urgent care, hospital, or residential...) When possible be specific @ -[No] Did you speak to anyone other than the patient for history (EMS, parent, family, police, friend...)? What history was obtained from this source @ -[No] Did you review nursing and triage notes (agree or disagree)? Why? @ -[I reviewed and agree with nursing and triage notes] Were old charts reviewed (outside hosp., previous admission, EMS record, old EKG, old radiological studies, urgent care reports/EKG's, residential records)? Report findings @ -[No old charts were reviewed] Differential Diagnosis (chest pain, altered mental status, abdominal pain women, abdominal pain men, vaginal bleeding, weakness, fever, dyspnea, syncope, headache, dizziness, GI bleed, back pain, seizure, CVA, palpatations, mental health, musculoskeletal)? @ -[not applicable] EKG interpreted by me (3pts min.). @ -[As above] X-rays interpreted by me (1pt min.). @ -[None done] CT interpreted by me (1pt min.). @ -[None done] U/S interpreted by me (1pt. min.). @ - What testing was considered but not performed or refused? (CT, X-rays, U/S, labs)? Why? @ -[None] What meds were considered but not given or refused? Why? @ -[None] Did you discuss the management of the patient with other professionals (professionals i.e. , PA, ACCOUNT SERVICES COORDINATOR, lab, RT, psych nurse, social service agency director, space and missile defense operations, teacher, senior administrative services officer, welfare case worker)? Give summary @ -[No] Was smoking cessation discussed for >3mins.? @ -[No] Was critical care preformed (if so, how long)? @ -[No] Were there social determinants of health that impacted care today? How? (Homelessness, low income, unemployed, alcoholism, drug addiction, transportation, low edu. Level, literacy, decrease access to med. care, group home, rehab)? @ -[No] Was there de-escalation of care discussed even if they declined (Discuss DNR or withdrawal of care, Hospice)? DNR status @ -[No] What co-morbidities impacted this encounter? (DM, HTN, Smoking, COPD, CAD, Cancer, CVA, ARF, Chemo, Hep., AIDS, mental health diagnosis, sleep apnea, morbid obesity)? @ -[None] Was patient admitted / discharged? Hospital course, mention meds given and route, prescriptions, significant lab abnormalities, going to OR and other pertinent info. @ - Undiagnosed new problem with uncertain prognosis? @ -[No] Drug Therapy requiring intensive monitoring for toxicity (Heparin, Nitro, Insulin, Cardizem)? @ -[No] Were any procedures done? @ -[No] Diagnosis/symptom? @ -[default] Acute, or Chronic, or Acute on Chronic? @ -[default] Uncomplicated (without systemic symptoms) or Complicated (systemic symptoms)? @ -[default] Side effects of treatment? @ -[No] Exacerbation, Progression, or Severe Exacerbation? @ -[No] Poses a threat to life or bodily function? How? (Chest pain, [place], [place], pneumonia, PE, COPD, DKA, ARF, appy, cholecystitis, CVA, Diverticulitis, Homicidal, Suicidal, threat to staff... and all critical care pts) @ -[No] - Lab Data Result diagrams: 09/06/23 16:14 09/06/23 16:14 Lab Results 09/06/23 09/06/23 09/06/23 Range/Units 16:14 16:14 16:14 WBC 5.3 (3.8-10.6) k/uL RBC 4.57 (3.80-5.40) m/uL Hgb 13.1 (11.4-16.0) gm/dL Hct 40.2 (34.0-46.0) % MCV 88.0 (80.0-100.0) fL MCH 28.7 (25.0-35.0) pg MCHC 32.6 (31.0-37.0) g/dL RDW 12.9 (11.5-15.5) % Plt Count 320 (150-450) k/uL MPV 7.2 Neutrophils % 59 % Lymphocytes % 31 % Monocytes % 5 % Eosinophils % 2 % Basophils % 0 % Neutrophils # 3.2 (1.3-7.7) k/uL Lymphocytes # 1.7 (1.0-4.8) k/uL Monocytes # 0.3 (0-1.0) k/uL Eosinophils # 0.1 (0-0.7) k/uL Basophils # 0.0 (0-0.2) k/uL Sodium 139 (137-145) mmol/L Potassium 3.7 (3.5-5.1) mmol/L Chloride 104 (98-107) mmol/L Carbon Dioxide 24 (22-30) mmol/L Anion Gap 11 mmol/L BUN 9 (7-17) mg/dL Creatinine 0.59 (0.52-1.04) mg/dL Est GFR (CKD-EPI)AfAm >90 (>60 ml/min/1.73 sqM) Est GFR (CKD-EPI)NonAf >90 (>60 ml/min/1.73 sqM) Glucose 94 (74-99) mg/dL Calcium 9.3 (8.4-10.2) mg/dL Total Bilirubin 0.4 (0.2-1.3) mg/dL AST 17 (14-36) U/L ALT 18 (4-34) U/L Alkaline Phosphatase 76 (38-126) U/L Total Protein 7.0 (6.3-8.2) g/dL Albumin 4.3 (3.5-5.0) g/dL HCG, Quant 50.2 mIU/mL Urine Color Light Yellow Urine Appearance Cloudy H (Clear) Urine pH 6.0 (5.0-8.0) Ur Specific [place] 1.020 (1.001-1.035) Urine Protein Negative (Negative) Urine Glucose (UA) Negative (Negative) Urine Ketones Negative (Negative) Urine Blood Negative (Negative) Urine Nitrite Negative (Negative) Urine Bilirubin Negative (Negative) Urine Urobilinogen <2.0 (<2.0) mg/dL Ur Leukocyte Esterase Large H (Negative) Urine RBC 6 H (0-5) /hpf Urine WBC 9 H (0-5) /hpf Ur Squamous Epith Cells 10 H (0-4) /hpf Urine Mucus Rare H (None) /hpf Disposition Clinical Impression: Early stage of Disposition: HOME SELF-CARE Condition: Stable Instructions (If sedation given, give patient instructions): (ED) Additional Instructions: Please have a serial lab tests drawn in 48 hours Please return to the nearest emergency department for worsening pain, worsening vaginal bleeding develop Prescriptions: Cephalexin [Keflex] 500 mg PO BID #10 cap Clm-Vzxl-Pubwu Acid [-U Capsule] 1 each PO DAILY #30 cap Is patient prescribed a controlled substance at d/c from ED?: No Referrals: Jerome Riggs MD [Primary Care Provider] - 1-2 days Dawn Dubose DO [Doctor of Osteopathic Medicine] - 1-2 days Alaina Esposito DO [Doctor of Osteopathic Medicine] - 1-2 days Glory Funes MD [STAFF PHYSICIAN] - 1-2 days Time of Disposition: 18:22
[2023-09-06] MEDS ORDERED: CEPHALEXIN 500 MG CAP PO STA (18:38)
[2023-09-06 19:00] VITALS: BP 136/78; PULSE 78; TEMP 98.1
== END 2023-09-06 19:32 | disposition home or self-care (01) ==
LOC: EC 15:32
DX: O46.91 Antepartum hemorrhage, unspecified, first trimester (principal); O99.331 Smoking (tobacco) complicating pregnancy, first trimester; F17.200 Nicotine dependence, unspecified, uncomplicated; Z91.040 Latex allergy status; Z91.010 Allergy to peanuts; Z91.013 Allergy to seafood; Z3A.01 Less than 8 weeks gestation of pregnancy
CPT/HCPCS: 36415; 76801; 76817; 80053; 81001; 84702; 85025; 87086; 96360; 99284

== ENCOUNTER → 2023-09-09 | Outpatient (CLI) | payer OTHER | END | disposition home or self-care (01) | LOC: LABWHC1 16:13 | PROVIDERS: ATTEND Student in an Organized Health Care Education/Training Program | DX: Z00.00 Encounter for general adult medical examination without abnormal findings (principal); O20.0 Threatened abortion; Z3A.00 Weeks of gestation of pregnancy not specified | CPT/HCPCS: 36415; 84702 ==

== ENCOUNTER 2023-09-20 00:01 | Emergency (ER) | payer OTHER ==
[2023-09-20 00:29] VITALS: RESP 18; TEMP 98.9
[2023-09-20] MEDS ORDERED: SODIUM CHLORIDE 0.9% 1,000 ML IV ONE (00:56)
--- NOTE | 2023-09-20 01:02 | ED ---
General Adult HPI - General Chief complaint: Shortness of Breath Stated complaint: SOB Time Seen by Provider: 09/20/23 00:10 Source: EMS Mode of arrival: EMS Limitations: no limitations - History of Present Illness Initial comments: Patient is a 33-year-old female currently 7 weeks . Patient presents to ER for evaluation of an episode of difficulty breathing. Patient reports that since having COVID last year she has had asthma-like symptoms where she gets short of breath with exposure to smoke, she states that today she was around people burning leaves outdoors. She was then eating a hotdog she began feeling like she couldn't catch her breath. She did not choke. She states that she began feeling she was having a panic attack and wasn't breathing so the ambulance was called. Upon arrival in the ER the symptoms have resolved. She does note that she's had some nausea and decreased oral intake due to early . She's is feeling dehydrated and states that drinking cold water prior to arrival did make her feel better. Patient also states that she was told her urine was cloudy so she is given antibiotics and she wanted to make sure that her urine test is cleared. - Related Data Home Medications Medication Instructions Recorded Confirmed Pnv No.95/Ferrous Fum/Folic AC 1 each PO DAILY 12/15/19 05/05/20 [ Multivitamin Tablet] Previous Rx's Medication Instructions Recorded Ibuprofen [Motrin] 600 mg PO Q6HR PRN #30 tab 05/06/20 Doxycycline [Vibramycin] 100 mg PO BID 7 Days #14 cap 07/02/21 Fluticasone Nasal [place] [Flonase 1 spray EA NOSTRIL DAILY 7 Days 07/02/21 Nasal [place]] #16 gm Ibuprofen [Motrin] 800 mg PO Q8HR PRN #30 tab 12/04/22 Ondansetron Odt [Zofran Odt] 4 mg PO Q8HR PRN #10 tab 12/04/22 Amoxic-Pot Clav 875-125Mg 1 tab PO Q12HR 5 Days #10 tab 02/12/23 [Augmentin 875-125] Ibuprofen [Motrin] 800 mg PO Q8H 14 Days #42 tab 02/12/23 Ofloxacin 0.3% Otic Soln [Floxin 5 drops RIGHT EAR BID 7 Days #5 ml 02/12/23 0.3% Otic Soln] Albuterol Inhaler [Ventolin Hfa 1 - 2 puff INHALATION Q6HR PRN #1 06/08/23 Inhaler] each Benzonatate [Tessalon Perles] 100 mg PO TID PRN #20 capsule 06/08/23 predniSONE [Deltasone] 20 mg PO BID #8 tab 06/08/23 Cephalexin [Keflex] 500 mg PO BID #10 cap 09/06/23 Phi-Wncd-Elurm Acid 1 each PO DAILY #30 cap 09/06/23 [-U Capsule] Allergies Allergy/AdvReac Type Severity Reaction Status Date / Time Latex, Natural Rubber Allergy Swelling Verified 09/06/23 15:38 peanut Allergy Swelling Verified 09/06/23 15:38 shellfish derived [Shellfish] Allergy Swelling Verified 09/06/23 15:38 Review of Systems ROS Statement: Those systems with pertinent positive or pertinent negative responses have been documented in the HPI. ROS Other: All systems not noted in ROS Statement are negative. Past Medical History Past Medical History: No Reported History History of Any Multi-Drug Resistant Organisms: None Reported Additional Past Surgical History / Comment(s): D&C, Past Anesthesia/Blood Transfusion Reactions: No Reported Reaction Past Psychological History: No Psychological Hx Reported Smoking Status: Current some day smoker, Former smoker Past Alcohol Use History: Occasional Past Drug Use History: None Reported - Past Family History Mother Family Medical History: Diabetes Mellitus Additional Family Medical History / Comment(s): Reported that runs in family; grandparents have General Exam Limitations: no limitations General appearance: alert, in no apparent distress Head exam: Present: atraumatic Eye exam: Present: normal appearance ENT exam: Present: normal exam Respiratory exam: Present: normal lung sounds bilaterally. Absent: respiratory distress, wheezes, rales, rhonchi, stridor, chest wall tenderness, accessory muscle use, decreased breath sounds, prolonged expiratory Cardiovascular Exam: Present: regular rate, normal rhythm, normal heart sounds. Absent: systolic murmur, diastolic murmur GI/Abdominal exam: Present: soft. Absent: distended Rectal exam: Present: deferred Extremities exam: Present: normal inspection Neurological exam: Present: alert, oriented X3 Psychiatric exam: Present: normal affect, anxious Skin exam: Present: warm, dry, intact, normal color Course Vital Signs 09/20/23 09/20/23 09/20/23 00:02 03:05 04:04 Temperature 98.9 F Pulse Rate 88 94 94 Respiratory 18 18 18 Rate Blood Pressure 122/72 114/69 98/53 O2 Sat by Pulse 100 100 97 Oximetry Medical Decision Making - Medical Decision Making Was pt. sent in by a medical professional or institution (HAIR Azar, ANATOMIC PATHOLOGIST, urgent care, hospital, or usp...) When possible be specific @ -No Did you speak to anyone other than the patient for history (EMS, parent, family, police, friend...)? What history was obtained from this source @ -No Did you review nursing and triage notes (agree or disagree)? Why? @ -I reviewed and agree with nursing and triage notes Were old charts reviewed (outside hosp., previous admission, EMS record, old EKG, old radiological studies, urgent care reports/EKG's, usp records)? Report findings @ -No old charts were reviewed Differential Diagnosis (chest pain, altered mental status, abdominal pain women, abdominal pain men, vaginal bleeding, weakness, fever, dyspnea, syncope, headac he, dizziness, GI bleed, back pain, seizure, CVA, palpatations, mental health)? @ -not applicable EKG interpreted by me (3pts min.). @ -As above X-rays interpreted by me (1pt min.). @ -None done CT interpreted by me (1pt min.). @ -None done U/S interpreted by me (1pt. min.). @ -None done What testing was considered but not performed or refused? (CT, X-rays, U/S, labs)? Why? @ -None What meds were considered but not given or refused? Why? @ -None Did you discuss the management of the patient with other professionals (professionals i.e. HAIR Azar, ANATOMIC PATHOLOGIST, lab, RT, psych nurse, older adult social work specialist, harpsichord maker, teacher, student liaison officer, embedded case manager)? Give summary @ -No Was smoking cessation discussed for >3mins.? @ -No Was critical care preformed (if so, how long)? @ -No Were there social determinants of health that impacted care today? How? (Homelessness, low income, unemployed, alcoholism, drug addiction, transportation, low edu. Level, literacy, decrease access to med. care, shelter, rehab)? @ -No Was there de-escalation of care discussed even if they declined (Discuss DNR or withdrawal of care, Hospice)? DNR status @ -No What co-morbidities impacted this encounter? (DM, HTN, Smoking, COPD, CAD, Cancer, CVA, ARF, Chemo, Hep., AIDS, mental health diagnosis, sleep apnea, morbid obesity)? @ -None Was patient admitted / discharged? Hospital course, mention meds given and route, prescriptions, significant lab abnormalities, going to OR and other pertinent info. @ -Discharged Patient presents to the ER via ambulance after having had some shortness breath after being exposed to smoke, this resolved after drinking cold water. Her only complaint upon arrival was that she feels somewhat dehydrated. She was treated with IV fluids. Patient reports that she had a urinalysis with cloudy results and was given antibiotic she wanted to recheck her urine however she can provided a very contaminated sample. I advised the patient to complete her antibiotics and follow up with her talent advisor for further management. Undiagnosed new problem with uncertain prognosis? @ -No Drug Therapy requiring intensive monitoring for toxicity (Heparin, Nitro, Insulin, Cardizem)? @ -No Were any procedures done? @ -No Diagnosis/symptom? @ -Shortness of breath resolved Acute, or Chronic, or Acute on Chronic? @ -default Uncomplicated (without systemic symptoms) or Complicated (systemic symptoms)? @ -default Side effects of treatment? @ -No Exacerbation, Progression, or Severe Exacerbation? @ -No Poses a threat to life or bodily function? How? (Chest pain, [place], [place], pneumonia, PE, COPD, DKA, ARF, appy, cholecystitis, CVA, Diverticulitis, Homicidal, Suicidal, threat to staff... and all critical care pts) @ -No - Lab Data Lab Results 09/20/23 Range/Units 01:38 Urine Color Colorless Urine Appearance Cloudy H (Clear) Urine pH 5.5 (5.0-8.0) Ur Specific [place] 1.010 (1.001-1.035) Urine Protein Negative (Negative) Urine Glucose (UA) Negative (Negative) Urine Ketones Negative (Negative) Urine Blood Negative (Negative) Urine Nitrite Negative (Negative) Urine Bilirubin Negative (Negative) Urine Urobilinogen <2.0 (<2.0) mg/dL Ur Leukocyte Esterase Large H (Negative) Urine RBC 2 (0-5) /hpf Urine WBC 25 H (0-5) /hpf Ur Squamous Epith Cells 16 H (0-4) /hpf Urine Bacteria Rare H (None) /hpf Urine Mucus Rare H (None) /hpf Disposition Clinical Impression: Early stage of Disposition: HOME SELF-CARE Condition: Stable Is patient prescribed a controlled substance at d/c from ED?: No Referrals: Jerome Riggs MD [Primary Care Provider] - 1-2 days
[2023-09-20 02:34] LABS: Appearance,Urine Cloudy (Clear); Bacteria,Urine Rare /hpf; Bilirubin,Urine Negative (Negative); Blood,Urine Negative (Negative); Color,Urine Colorless; Glucose,Urine (UA) Negative (Negative); Ketones,Urine Negative (Negative); Leukocyte Esterase,Urine Large (Negative); Mucus,Urine Rare /hpf; Nitrite,Urine Negative (Negative); PH, Urine 5.5 (5.0-8.0); Protein,Urine Negative (Negative); RBC,Urine 2 /hpf (0-5); Squamous Epithelial Cell,Urine 16 /hpf (0-4); Urobilinogen,Urine <2.0 mg/dL (<2.0); WBC,Urine 25 /hpf (0-5)
[2023-09-20 03:20] VITALS: PULSE 94
[2023-09-20 04:46] VITALS: BP 98/53
== END 2023-09-20 04:24 | disposition home or self-care (01) ==
LOC: EC 00:01
DX: Z34.91 Encounter for supervision of normal pregnancy, unspecified, first trimester (principal); F17.200 Nicotine dependence, unspecified, uncomplicated; Z91.040 Latex allergy status; Z91.010 Allergy to peanuts; Z3A.01 Less than 8 weeks gestation of pregnancy
CPT/HCPCS: 81001; 87086; 96360; 99285

== ENCOUNTER 2023-10-13 02:07 | Emergency (ER) | payer OTHER ==
[2023-10-13 02:32] VITALS: TEMP 98.6
--- NOTE | 2023-10-13 03:01 | ED ---
General Adult HPI - General Chief complaint: Upper Respiratory Infection Stated complaint: Nasal Congestion Time Seen by Provider: 10/13/23 02:11 Source: patient, RN notes reviewed, old records reviewed Mode of arrival: ambulatory Limitations: no limitations - History of Present Illness Initial comments: Patient is a 33-year-old female who is approximately 10-12 weeks based on LMP presents emergency Department complaining of congestion. Denies any vaginal bleeding or discharge. Denies any abdominal pain, nausea, vomiting. Is currently on amoxicillin for asymptomatic bacteriuria. Presents as she has been more congested lately. Patient's kids have similar complaints. Denies cough. Denies sore throat. Is uncertain what she can take for congestion and if she has a virus. Presents for further evaluation at this time. Nurse's runny nose. Denies ear pain. She endorses mild sinus pressure. Symptoms have been ongoing for the last few days. - Related Data Home Medications Medication Instructions Recorded Confirmed Pnv No.95/Ferrous Fum/Folic AC 1 each PO DAILY 12/15/19 05/05/20 [ Multivitamin Tablet] Previous Rx's Medication Instructions Recorded Ibuprofen [Motrin] 600 mg PO Q6HR PRN #30 tab 05/06/20 Doxycycline [Vibramycin] 100 mg PO BID 7 Days #14 cap 07/02/21 Fluticasone Nasal [place] [Flonase 1 spray EA NOSTRIL DAILY 7 Days 07/02/21 Nasal [place]] #16 gm Ibuprofen [Motrin] 800 mg PO Q8HR PRN #30 tab 12/04/22 Ondansetron Odt [Zofran Odt] 4 mg PO Q8HR PRN #10 tab 12/04/22 Amoxic-Pot Clav 875-125Mg 1 tab PO Q12HR 5 Days #10 tab 02/12/23 [Augmentin 875-125] Ibuprofen [Motrin] 800 mg PO Q8H 14 Days #42 tab 02/12/23 Ofloxacin 0.3% Otic Soln [Floxin 5 drops RIGHT EAR BID 7 Days #5 ml 02/12/23 0.3% Otic Soln] Albuterol Inhaler [Ventolin Hfa 1 - 2 puff INHALATION Q6HR PRN #1 06/08/23 Inhaler] each Benzonatate [Tessalon Perles] 100 mg PO TID PRN #20 capsule 06/08/23 predniSONE [Deltasone] 20 mg PO BID #8 tab 06/08/23 Cephalexin [Keflex] 500 mg PO BID #10 cap 09/06/23 Qga-Enpl-Rnmqx Acid 1 each PO DAILY #30 cap 09/06/23 [-U Capsule] Eta952/Iron/FA/O3/Dha/Epa/Fish 1 each PO DAILY 30 Days #30 cap 10/13/23 [ Multi-Dha Softgel] Allergies Allergy/AdvReac Type Severity Reaction Status Date / Time Latex, Natural Rubber Allergy Swelling Verified 10/13/23 02:21 peanut Allergy Swelling Verified 10/13/23 02:21 shellfish derived [Shellfish] Allergy Swelling Verified 10/13/23 02:21 Review of Systems ROS Statement: Those systems with pertinent positive or pertinent negative responses have been documented in the HPI. Review of Systems: CONST: Denies fever EYES: Denies blurry vision ENT: Endorses nasal congestion C/V: Denies Chest pain RESP: Denies shortness of breath GI: Denies abdominal pain : Denies dysuria SKIN: Denies rash. MSK: Denies joint pain. NEURO: Denies headache ROS Other: All systems not noted in ROS Statement are negative. Past Medical History Past Medical History: No Reported History History of Any Multi-Drug Resistant Organisms: None Reported Additional Past Surgical History / Comment(s): D&C, Past Anesthesia/Blood Transfusion Reactions: No Reported Reaction Past Psychological History: No Psychological Hx Reported Smoking Status: Current some day smoker, Former smoker Past Alcohol Use History: Occasional Past Drug Use History: None Reported - Past Family History Mother Family Medical History: Diabetes Mellitus Additional Family Medical History / Comment(s): Reported that runs in family; grandparents have General Exam - General Exam Comments Initial Comments: General: Appears in no acute distress. HEAD: Normal with no signs of head trauma. EYES: PERRLA, EOMI, conjunctiva normal, no discharge. ENT: Hearing grossly intact, normal oropharynx. Bilateral TMs within normal limits. No sinus pressure or tenderness on palpation. RESPIRATORY: Clear breath sounds bilaterally. No wheezes, rales, or rhonchi. No hypoxia. No increased work of breathing. C/V: Regular rate and rhythm. S1 and S2 auscultated, no edema, peripheral pulses 2+ and intact throughout ABD: Abd is soft, nontender, nondistended EXT: Normal range of motion, no obvious deformity SKIN: No rashes or lesions observed on exposed skin. NEURO: Alert and oriented x 4. Limitations: no limitations Course Vital Signs 10/13/23 02:18 Temperature 98.6 F Pulse Rate 85 Respiratory 18 Rate Blood Pressure 133/78 O2 Sat by Pulse 99 Oximetry Medical Decision Making - Medical Decision Making Was pt. sent in by a medical professional or institution ([facility] Azar, WOODEN FENCE ERECTOR, urgent care, hospital, or [place] health care facility...) When possible be specific @ -No Did you speak to anyone other than the patient for history (EMS, parent, family, police, friend...)? What history was obtained from this source @ -No Did you review nursing and triage notes (agree or disagree)? Why? @ -I reviewed and agree with nursing and triage notes Were old charts reviewed (outside hosp., previous admission, EMS record, old EKG, old radiological studies, urgent care reports/EKG's, [place] health care facility records)? Report findings @ -No old charts were reviewed Differential Diagnosis (chest pain, altered mental status, abdominal pain women, abdominal pain men, vaginal bleeding, weakness, fever, dyspnea, syncope, headache, dizziness, GI bleed, back pain, seizure, CVA, palpatations, mental health, musculoskeletal)? @ -Viral syndrome, Covid infection, flu infection, RSV. This list is not all inclusive. EKG interpreted by me (3pts min.). @ -None done X-rays interpreted by me (1pt min.). @ -None done CT interpreted by me (1pt min.). @ -None done U/S interpreted by me (1pt. min.). @ -None done What testing was considered but not performed or refused? (CT, X-rays, U/S, labs)? Why? @ -None What meds were considered but not given or refused? Why? @ -None Did you discuss the management of the patient with other professionals (professionals i.e. HAIR Azar, WOODEN FENCE ERECTOR, lab, RT, psych nurse, high school social studies tutor, flake or shred roll operator, teacher, rating officer, mental health case manager)? Give summary @ -No Was smoking cessation discussed for >3mins.? @ -No Was critical care preformed (if so, how long)? @ -No Were there social determinants of health that impacted care today? How? (Homelessness, low income, unemployed, alcoholism, drug addiction, tr ansportation, low edu. Level, literacy, decrease access to med. care, fpc, rehab)? @ -No Was there de-escalation of care discussed even if they declined (Discuss DNR or withdrawal of care, Hospice)? DNR status @ -No What co-morbidities impacted this encounter? (DM, HTN, Smoking, COPD, CAD, Cancer, CVA, ARF, Chemo, Hep., AIDS, mental health diagnosis, sleep apnea, morbid obesity)? @ -None Was patient admitted / discharged? Hospital course, mention meds given and route, prescriptions, significant lab abnormalities, going to OR and other pertinent info. @ -Based on patient's presentation and physical exam, presents with upper respiratory symptoms. Seems to be isolated to nasal congestion. No significant cough. Discussed with the patient we will obtain viral swabs. She is wondering what decongestant she can take if she is . Is also currently on amoxicillin. Patient otherwise in agreement this plan. Vital signs are within acceptable limits. Patient's vital swabs returned negative. Urinalysis is contaminated, however patient is already on amoxicillin and recommended she continue that. We discussed her workup. Discussed that category B ratings for decongestants include Zyrtec as well as Claritin. Recommended she obtain these [id number]. She was in agreement this plan. Recommend she also started vitamins. She was in agreement this plan. Strict return precautions discussed. She'll be discharged home at this time. I will provide the patient with a prescription for vitamins. I instructed the patient to follow up with their PCP in the next 1-3 days. I explained that the patient should return to the emergency department if they experience any worsening symptoms. Strict return precautions were discussed with the patient. The patient expressed understanding of these instructions. I answered all questions that the patient had. The patient was discharged home in good condition with their prescriptions and follow up information. Undiagnosed new problem with uncertain prognosis? @ -No Drug Therapy requiring intensive monitoring for toxicity (Heparin, Nitro, Insulin, Cardizem)? @ -No Were any procedures done? @ -No Diagnosis/symptom? @ -Viral syndrome Acute, or Chronic, or Acute on Chronic? @ -Acute Uncomplicated (without systemic symptoms) or Complicated (systemic symptoms)? @ -Uncomplicated Side effects of treatment? @ -none Exacerbation, Progression, or Severe Exacerbation] @ -no Poses a threat to life or bodily function? @ -no - Lab Data Lab Results 10/13/23 10/13/23 Range/Units 02:48 02:48 Urine Color Yellow Urine Appearance Cloudy H (Clear) Urine pH 6.0 (5.0-8.0) Ur Specific [place] 1.037 H (1.001-1.035) Urine Protein 1+ H (Negative) Urine Glucose (UA) Trace H (Negative) Urine Ketones 2+ H (Negative) Urine Blood Negative (Negative) Urine Nitrite Negative (Negative) Urine Bilirubin Negative (Negative) Urine Urobilinogen 2.0 (<2.0) mg/dL Ur Leukocyte Esterase Large H (Negative) Urine RBC 15 H (0-5) /hpf Urine WBC 47 H (0-5) /hpf Ur Squamous Epith Cells 18 H (0-4) /hpf Amorphous Sediment Occasional H (None) /hpf Urine Bacteria Occasional H (None) /hpf Urine Mucus Many H (None) /hpf Influenza Type A (PCR) Not Detected (Not Detectd) Influenza Type B (PCR) Not Detected (Not Detectd) RSV (PCR) Not Detected (Not Detectd) SARS-CoV-2 (PCR) Not Detected (Not Detectd) Disposition Clinical Impression: Viral syndrome Disposition: HOME SELF-CARE Condition: Good Instructions (If sedation given, give patient instructions): Viral Syndrome (ED) Prescriptions: [id number]/Iron/FA/O3/Dha/Epa/Fish [ Multi-Dha Softgel] 1 each PO DAILY 30 Days #30 cap Is patient prescribed a controlled substance at d/c from ED?: No Referrals: Jerome Riggs MD [Primary Care Provider] - 1-2 days Time of Disposition: 04:00
[2023-10-13 03:09] LABS: Amorphous Sediment,Urine Occasional /hpf; Appearance,Urine Cloudy (Clear); Bacteria,Urine Occasional /hpf; Bilirubin,Urine Negative (Negative); Blood,Urine Negative (Negative); Color,Urine Yellow; Glucose,Urine (UA) Trace (Negative); Ketones,Urine 2+ (Negative); Leukocyte Esterase,Urine Large (Negative); Mucus,Urine Many /hpf; Nitrite,Urine Negative (Negative); Protein,Urine 1+ (Negative); RBC,Urine 15 /hpf (0-5); Specific Gravity,Urine 1.037 (1.001-1.035); Squamous Epithelial Cell,Urine 18 /hpf (0-4); WBC,Urine 47 /hpf (0-5)
[2023-10-13] MEDS ORDERED: LORATADINE 10 MG TAB PO STA (04:07)
[2023-10-13 04:24] VITALS: BP 110/71; PULSE 84; RESP 16
== END 2023-10-13 04:22 | disposition home or self-care (01) ==
LOC: EC 02:07
DX: O98.511 Other viral diseases complicating pregnancy, first trimester (principal); B34.9 Viral infection, unspecified; O99.331 Smoking (tobacco) complicating pregnancy, first trimester; F17.200 Nicotine dependence, unspecified, uncomplicated; Z91.040 Latex allergy status; Z91.010 Allergy to peanuts; Z91.013 Allergy to seafood; Z3A.12 12 weeks gestation of pregnancy; Z20.822 Contact with and (suspected) exposure to COVID-19
CPT/HCPCS: 81001; 87636; 99283

== ENCOUNTER 2023-10-31 15:59 | Emergency (ER) | payer OTHER ==
[2023-10-31] MEDS ORDERED: SODIUM CHLORIDE 0.9% 1,000 ML IV STA (16:14)
--- NOTE | 2023-10-31 16:15 | ED ---
General Adult HPI <Kirt Hamlin - Last Filed: 10/31/23 16:09> <Marshall Rivera - Last Filed: 11/01/23 03:20> - General Stated complaint: [place], ?wks - History of Present Illness Initial comments: Quick note: Patient is a female currently approximately 13 weeks . Patient states she is having morning sickness. She has been vomiting after past few weeks. Concerned she is dehydrated. She doesn't have an appointment with her OBGYN 10/31/22. She also feels like she has a bump in the back of her throat that started after drinking a smoothie. Verbally signed by Kirt Hamlin on 10/31/2023 at 1614 (Kirt Hamlin) 33-year-old female currently 13 weeks based on LMP of July 31 presenting with chief complaint of nausea and vomiting. Patient states that she has been nauseous and vomiting for several weeks. She is concerned that she may be dehydrated. She states that she has an upcoming appointment with an CLAY PRESS OPERATOR "in a few weeks", has not yet seen CLAY PRESS OPERATOR. No abdominal pain or vaginal bleeding. No fever, chills, cough, congestion, sore throat, chest pain, difficulty breathing. Patient also states that she has a painful bump on the roof of her mouth that she noticed after drinking a smoothie today. She is having no difficulty breathing or swallowing. No swelling of the lips or tongue. No rashes. (Marshall Rivera) - Related Data Home Medications Medication Instructions Recorded Confirmed Pnv No.95/Ferrous Fum/Folic AC 1 each PO DAILY 12/15/19 05/05/20 [ Multivitamin Tablet] Previous Rx's Medication Instructions Recorded Ibuprofen [Motrin] 600 mg PO Q6HR PRN #30 tab 05/06/20 Doxycycline [Vibramycin] 100 mg PO BID 7 Days #14 cap 07/02/21 Fluticasone Nasal [place] [Flonase 1 spray EA NOSTRIL DAILY 7 Days 07/02/21 Nasal [place]] #16 gm Ibuprofen [Motrin] 800 mg PO Q8HR PRN #30 tab 12/04/22 Ondansetron Odt [Zofran Odt] 4 mg PO Q8HR PRN #10 tab 12/04/22 Amoxic-Pot Clav 875-125Mg 1 tab PO Q12HR 5 Days #10 tab 02/12/23 [Augmentin 875-125] Ibuprofen [Motrin] 800 mg PO Q8H 14 Days #42 tab 02/12/23 Ofloxacin 0.3% Otic Soln [Floxin 5 drops RIGHT EAR BID 7 Days #5 ml 02/12/23 0.3% Otic Soln] Albuterol Inhaler [Ventolin Hfa 1 - 2 puff INHALATION Q6HR PRN #1 06/08/23 Inhaler] each Benzonatate [Tessalon Perles] 100 mg PO TID PRN #20 capsule 06/08/23 predniSONE [Deltasone] 20 mg PO BID #8 tab 06/08/23 Cephalexin [Keflex] 500 mg PO BID #10 cap 09/06/23 Zng-Tecy-Jrwjj Acid 1 each PO DAILY #30 cap 09/06/23 [-U Capsule] Vax028/Iron/FA/O3/Dha/Epa/Fish 1 each PO DAILY 30 Days #30 cap 10/13/23 [ Multi-Dha Softgel] Cephalexin [Keflex] 500 mg PO Q12HR 5 Days #10 cap 10/31/23 Ondansetron Odt [Zofran Odt] 4 mg PO Q8HR PRN #20 tab 10/31/23 Allergies Allergy/AdvReac Type Severity Reaction Status Date / Time Latex, Natural Rubber Allergy Swelling Verified 10/31/23 16:27 peanut Allergy Swelling Verified 10/31/23 16:27 shellfish derived [Shellfish] Allergy Swelling Verified 10/31/23 16:27 Review of Systems ROS Other: All systems not noted in ROS Statement are negative. <Kirt Hamlin - Last Filed: 10/31/23 16:09> ROS Other: All systems not noted in ROS Statement are negative. <Marshall Rivera - Last Filed: 11/01/23 03:20> ROS Statement: Those systems with pertinent positive or pertinent negative responses have been documented in the HPI. Past Medical History Past Medical History: No Reported History History of Any Multi-Drug Resistant Organisms: None Reported Additional Past Surgical History / Comment(s): D&C, Past Anesthesia/Blood Transfusion Reactions: No Reported Reaction Past Psychological History: No Psychological Hx Reported Smoking Status: Current some day smoker, Former smoker Past Alcohol Use History: Occasional Past Drug Use History: None Reported - Past Family History Mother Family Medical History: Diabetes Mellitus Additional Family Medical History / Comment(s): Reported that runs in family; grandparents have <Kirt Hamlin - Last Filed: 10/31/23 16:09> General Exam <Kirt Hamlin - Last Filed: 10/31/23 16:09> Limitations: no limitations General appearance: alert, in no apparent distress Head exam: Present: atraumatic, normocephalic Eye exam: Present: normal appearance Respiratory exam: Present: normal lung sounds bilaterally. Absent: respiratory distress, wheezes, rales, rhonchi, stridor Cardiovascular Exam: Present: regular rate, normal rhythm, normal heart sounds. Absent: systolic murmur, diastolic murmur, rubs, gallop, clicks GI/Abdominal exam: Present: soft. Absent: distended, tenderness, guarding, rebound, rigid Neurological exam: Present: alert, oriented X3 Psychiatric exam: Present: normal affect, normal mood Skin exam: Present: warm, dry <Marshall Rivera - Last Filed: 11/01/23 03:20> - General Exam Comments Initial Comments: Visual physical exam: Patient well-appearing, no acute distress, no respiratory distress. No vomiting. Small raised lesion to left posterior oropharynx ([place]oubacarKirt) Course Vital Signs 10/31/23 10/31/23 16:25 20:56 Temperature 97.9 F Pulse Rate 96 94 Respiratory 20 18 Rate Blood Pressure 119/76 110/76 O2 Sat by Pulse 96 99 Oximetry Medical Decision Making - Lab Data Result diagrams: 10/31/23 16:29 10/31/23 16:29 <Marshall Rivera - Last Filed: 11/01/23 03:20> - Medical Decision Making Was pt. sent in by a medical professional or institution (, PA, CAR SALTER, urgent care, hospital, or assisted...) When possible be specific @ -No Did you speak to anyone other than the patient for history (EMS, parent, family, police, friend...)? What history was obtained from this source @ -No Did you review nursing and triage notes (agree or disagree)? Why? @ -I reviewed and agree with nursing and triage notes Were old charts reviewed (outside hosp., previous admission, EMS record, old EKG, old radiological studies, urgent care reports/EKG's, assisted records)? Report findings @ -No old charts were reviewed Differential Diagnosis (chest pain, altered mental status, abdominal pain women, abdominal pain men, vaginal bleeding, weakness, fever, dyspnea, syncope, headache, dizziness, GI bleed, back pain, seizure, CVA, palpatations, mental health, musculoskeletal)? @ -Differential includes hyperemesis gravidarum, gastroenteritis, UTI, kidney stone, this is not an all inclusive list EKG interpreted by me (3pts min.). @ -As above X-rays interpreted by me (1pt min.). @ -None done CT interpreted by me (1pt min.). @ -None done U/S interpreted by me (1pt. min.). @ -None done What testing was considered but not performed or refused? (CT, X-rays, U/S, labs)? Why? @ -None What meds were considered but not given or refused? Why? @ -None Did you discuss the management of the patient with other professionals (professionals i.e. , PA, CAR SALTER, lab, RT, psych nurse, renal social worker, machinist/machine builder, teacher, general service officer, correctional case manager)? Give summary @ -No Was smoking cessation discussed for >3mins.? @ -No Was critical care preformed (if so, how long)? @ -No Were there social determinants of health that impacted care today? How? (Homelessness, low income, unemployed, alcoholism, drug addiction, transportation, low edu. Level, literacy, decrease access to med. care, long term, rehab)? @ -No Was there de-escalation of care discussed even if they declined (Discuss DNR or withdrawal of care, Hospice)? DNR status @ -No What co-morbidities impacted this encounter? (DM, HTN, Smoking, COPD, CAD, Cancer, CVA, ARF, Chemo, Hep., AIDS, mental health diagnosis, sleep apnea, mo rbid obesity)? @ -None Was patient admitted / discharged? Hospital course, mention meds given and route, prescriptions, significant lab abnormalities, going to OR and other pertinent info. @ -33-year-old female currently about 13 weeks presenting with chief complaint of nausea and vomiting. Has been ongoing for several weeks. She has not yet seen an CLAY PRESS OPERATOR. No abdominal pain or vaginal bleeding. History and physical exam were conducted. Patient is noted to have an abscess ulcer on the soft palate. Remainder of exam is unremarkable. Lab work shows no leukocytosis or anemia. Urine shows contamination with 15 WBCs and 20 squamous cells. Patient was given IV Zofran, I'm told immediately following she requested that her IV be removed, refuses IV fluids. I requested that the patient undergo a PO challenge, patient refuses PO challenge and requested her discharge papers. She is told to follow up with CLAY PRESS OPERATOR. She is sent Keflex for a symptomatic bacteriuria and Zofran for nausea. Report back to ER with any new or worsening symptoms. I discussed this case with my attending Dr. Watts Undiagnosed new problem with uncertain prognosis? @ -No Drug Therapy requiring intensive monitoring for toxicity (Heparin, Nitro, Insulin, Cardizem)? @ -No Were any procedures done? @ -No Diagnosis/symptom? @ -Nausea and vomiting in Acute, or Chronic, or Acute on Chronic? @ -Acute Uncomplicated (without systemic symptoms) or Complicated (systemic symptoms)? @ -Uncomplicated Side effects of treatment? @ -No Exacerbation, Progression, or Severe Exacerbation? @ -No Poses a threat to life or bodily function? How? (Chest pain, [place], [place], pneumonia, PE, COPD, DKA, ARF, appy, cholecystitis, CVA, Diverticulitis, Homicidal, Suicidal, threat to staff... and all critical care pts) @ -No (Marshall Rivera) - Lab Data Lab Results 10/31/23 10/31/23 10/31/23 Range/Units 16:29 16:29 16:29 WBC 4.4 (3.8-10.6) k/uL RBC 4.58 (3.80-5.40) m/uL Hgb 13.0 (11.4-16.0) gm/dL Hct 38.9 (34.0-46.0) % MCV 85.0 (80.0-100.0) fL MCH 28.4 (25.0-35.0) pg MCHC 33.4 (31.0-37.0) g/dL RDW 12.5 (11.5-15.5) % Plt Count 270 (150-450) k/uL MPV 7.8 Neutrophils % 65 % Lymphocytes % 27 % Monocytes % 4 % Eosinophils % 2 % Basophils % 0 % Neutrophils # 2.9 (1.3-7.7) k/uL Lymphocytes # 1.2 (1.0-4.8) k/uL Monocytes # 0.2 (0-1.0) k/uL Eosinophils # 0.1 (0-0.7) k/uL Basophils # 0.0 (0-0.2) k/uL Sodium (137-145) mmol/L Potassium (3.5-5.1) mmol/L Chloride (98-107) mmol/L Carbon Dioxide (22-30) mmol/L Anion Gap mmol/L BUN (7-17) mg/dL Creatinine (0.52-1.04) mg/dL Est GFR (CKD-EPI)AfAm (>60 ml/min/1.73 sqM) Est GFR (CKD-EPI)NonAf (>60 ml/min/1.73 sqM) Glucose (74-99) mg/dL Calcium (8.4-10.2) mg/dL Total Bilirubin (0.2-1.3) mg/dL AST (14-36) U/L ALT (4-34) U/L Alkaline Phosphatase (38-126) U/L Total Protein (6.3-8.2) g/dL Albumin (3.5-5.0) g/dL Urine Color Yellow Urine Appearance Cloudy H (Clear) Urine pH 6.0 (5.0-8.0) Ur Specific [place] 1.032 (1.001-1.035) Urine Protein 1+ H (Negative) Urine Glucose (UA) Negative (Negative) Urine Ketones 2+ H (Negative) Urine Blood Negative (Negative) Urine Nitrite Negative (Negative) Urine Bilirubin Negative (Negative) Urine Urobilinogen 2.0 (<2.0) mg/dL Ur Leukocyte Esterase Large H (Negative) Urine RBC 5 (0-5) /hpf Urine WBC 15 H (0-5) /hpf Ur Squamous Epith Cells 20 H (0-4) /hpf Amorphous Sediment Occasional H (None) /hpf Urine Mucus Many H (None) /hpf Urine HCG, Qual Detected (Not Detectd) 10/31/23 Range/Units 16:29 WBC (3.8-10.6) k/uL RBC (3.80-5.40) m/uL Hgb (11.4-16.0) gm/dL Hct (34.0-46.0) % MCV (80.0-100.0) fL MCH (25.0-35.0) pg MCHC (31.0-37.0) g/dL RDW (11.5-15.5) % Plt Count (150-450) k/uL MPV Neutrophils % % Lymphocytes % % Monocytes % % Eosinophils % % Basophils % % Neutrophils # (1.3-7.7) k/uL Lymphocytes # (1.0-4.8) k/uL Monocytes # (0-1.0) k/uL Eosinophils # (0-0.7) k/uL Basophils # (0-0.2) k/uL Sodium 136 L (137-145) mmol/L Potassium 3.6 (3.5-5.1) mmol/L Chloride 102 (98-107) mmol/L Carbon Dioxide 20 L (22-30) mmol/L Anion Gap 14 mmol/L BUN 5 L (7-17) mg/dL Creatinine 0.49 L (0.52-1.04) mg/dL Est GFR (CKD-EPI)AfAm >90 (>60 ml/min/1.73 sqM) Est GFR (CKD-EPI)NonAf >90 (>60 ml/min/1.73 sqM) Glucose 91 (74-99) mg/dL Calcium 9.4 (8.4-10.2) mg/dL Total Bilirubin 0.5 (0.2-1.3) mg/dL AST 18 (14-36) U/L ALT 17 (4-34) U/L Alkaline Phosphatase 65 (38-126) U/L Total Protein 6.9 (6.3-8.2) g/dL Albumin 4.2 (3.5-5.0) g/dL Urine Color Urine Appearance (Clear) Urine pH (5.0-8.0) Ur Specific [place] (1.001-1.035) Urine Protein (Negative) Urine Glucose (UA) (Negative) Urine Ketones (Negative) Urine Blood (Negative) Urine Nitrite (Negative) Urine Bilirubin (Negative) Urine Urobilinogen (<2.0) mg/dL Ur Leukocyte Esterase (Negative) Urine RBC (0-5) /hpf Urine WBC (0-5) /hpf Ur Squamous Epith Cells (0-4) /hpf Amorphous Sediment (None) /hpf Urine Mucus (None) /hpf Urine HCG, Qual (Not Detectd) Disposition <Kirt Hamlin - Last Filed: 10/31/23 16:09> Is patient prescribed a controlled substance at d/c from ED?: No Time of Disposition: 20:49 <Marshall Rivera - Last Filed: 11/01/23 03:20> Clinical Impression: Vomiting during , Aphthous ulcer Disposition: HOME SELF-CARE Condition: Good Instructions (If sedation given, give patient instructions): Nausea and Vomitin g in (ED), Canker Sores (ED) Additional Instructions: Follow-up with PCP and CLAY PRESS OPERATOR. Report back to ER with any new or worsening symptoms. Prescriptions: Cephalexin [Keflex] 500 mg PO Q12HR 5 Days #10 cap Ondansetron Odt [Zofran Odt] 4 mg PO Q8HR PRN #20 tab PRN Reason: Nausea Referrals: Jerome Riggs MD [Primary Care Provider] - 1-2 days Juan Stewart MD [STAFF PHYSICIAN] - 1-2 days
[2023-10-31 16:31] VITALS: TEMP 97.9
[2023-10-31 16:48] LABS: Basophils % (A) 0 %; Eosinophils # (A) 0.1 k/uL (0-0.7); Eosinophils % (A) 2 %; HCT 38.9 % (34.0-46.0); Lymphocytes # (A) 1.2 k/uL (1.0-4.8); Lymphocytes % (A) 27 %; MCH 28.4 pg (25.0-35.0); MCHC 33.4 g/dL (31.0-37.0); Mean Platelet Volume 7.8; Monocytes # (A) 0.2 k/uL (0-1.0); Monocytes % (A) 4 %; Neutrophils # (A) 2.9 k/uL (1.3-7.7); Neutrophils % (A) 65 %; Platelet Count 270 k/uL (150-450); RBC 4.58 m/uL (3.80-5.40); RDW 12.5 % (11.5-15.5); WBC 4.4 k/uL (3.8-10.6)
[2023-10-31 16:51] LABS: Amorphous Sediment,Urine Occasional /hpf; Appearance,Urine Cloudy (Clear); Bilirubin,Urine Negative (Negative); Blood,Urine Negative (Negative); Color,Urine Yellow; Glucose,Urine (UA) Negative (Negative); Ketones,Urine 2+ (Negative); Leukocyte Esterase,Urine Large (Negative); Mucus,Urine Many /hpf; Nitrite,Urine Negative (Negative); Protein,Urine 1+ (Negative); RBC,Urine 5 /hpf (0-5); Specific Gravity,Urine 1.032 (1.001-1.035); Squamous Epithelial Cell,Urine 20 /hpf (0-4); WBC,Urine 15 /hpf (0-5)
[2023-10-31 17:09] LABS: ALT 17 U/L (4-34); AST 18 U/L (14-36); African American GFR (CKD) >90 (>60 ml/min/1.73 sqM); Albumin 4.2 g/dL (3.5-5.0); Alkaline Phosphatase 65 U/L (38-126); Anion Gap 14 mmol/L; Blood Urea Nitrogen 5 mg/dL (7-17); Calcium 9.4 mg/dL (8.4-10.2); Carbon Dioxide 20 mmol/L (22-30); Chloride 102 mmol/L (98-107); Glucose 91 mg/dL (74-99); Non-African American GFR(CKD) >90 (>60 ml/min/1.73 sqM); Potassium 3.6 mmol/L (3.5-5.1); Sodium 136 mmol/L (137-145); Total Bilirubin 0.5 mg/dL (0.2-1.3); Total Protein 6.9 g/dL (6.3-8.2)
[2023-10-31] MEDS ORDERED: ONDANSETRON 4 MG/2 ML VIAL IVP STA (17:50)
[2023-10-31 21:12] VITALS: BP 110/76; PULSE 94; RESP 18
== END 2023-10-31 20:56 | disposition home or self-care (01) ==
LOC: EC 15:59
DX: O21.9 Vomiting of pregnancy, unspecified (principal); O99.611 Diseases of the digestive system complicating pregnancy, first trimester; K12.0 Recurrent oral aphthae; O99.331 Smoking (tobacco) complicating pregnancy, first trimester; F17.200 Nicotine dependence, unspecified, uncomplicated; Z3A.13 13 weeks gestation of pregnancy; Z91.040 Latex allergy status; Z91.010 Allergy to peanuts; Z91.013 Allergy to seafood
CPT/HCPCS: 99284 ×2; 96374 ×2; 96361 ×2; 36415; 80053; 85025; 81001; 81025; 87086; J2405

== ENCOUNTER 2024-02-01 19:00 | Outpatient (CLI) | payer OTHER ==
[2024-02-01 21:04] LABS: Appearance,Urine Cloudy (Clear); Bilirubin,Urine Negative (Negative); Blood,Urine Negative (Negative); Color,Urine Yellow; Glucose,Urine (UA) Negative (Negative); Ketones,Urine Negative (Negative); Leukocyte Esterase,Urine Large (Negative); Mucus,Urine Occasional /hpf; Nitrite,Urine Negative (Negative); PH, Urine 6.5 (5.0-8.0); Protein,Urine 1+ (Negative); RBC,Urine 7 /hpf (0-5); Specific Gravity,Urine 1.029 (1.001-1.035); Squamous Epithelial Cell,Urine 32 /hpf (0-4); Urobilinogen,Urine <2.0 mg/dL (<2.0); WBC,Urine 15 /hpf (0-5)
[2024-02-02 07:43] VITALS: BP 108/61; PULSE 98; RESP 16; TEMP 96.8
--- NOTE | 2024-03-09 12:10 | P.MSEPDOC ---
Presenting Problems - Arrival Data Date of Arrival on Unit: 02/01/24 Time of Arrival on Unit: 19:00 Mode of Transport: Ambulatory - Complaint OB-Reason for Admission/Chief Complaint: Other Comment: Pt presents to triage with c/o cramping that started yesterday, rates pain 10 out of 10 when it occurs and describes it as sharp pain that comes and goes Medical History - Information : 4 Para: 2 Term: 2 : 0 Abortions: Spontaneous or Elective: 1 Number of Living Children: 2 - Gestational Age Gestational Age by EMMANUEL (wks/days): 25 Weeks and 1 Days Review of Systems - Review of Systems Constitutional: No problems Breast: No problems ENT: No problems Cardiovascular: No problems Respiratory: No problems Gastrointestinal: No problems Genitourinary: No problems Musculoskeletal: No problems Neurological: No problems Skin: No problems Vital Signs - Temperature Temperature: 96.8 F Temperature Source: Temporal Artery Scan - Pulse Pulse Oximetery Pulse Rate: 98 Pulse Assessment Method: Pulse Oximetry - Respirations Respiratory Rate: 16 Oxygen Delivery Method: Room Air O2 Sat by Pulse Oximetry: 97 - Blood Pressure Right Arm Blood Pressure: 108/61 Blood Pressure Mean: 76 Blood Pressure Source: Automatic Cuff Medical Screen Scoring - Cervical Exam Membranes: Intact - Uterine Contractions Intensity: Absent Resting: Soft to palpation - Assessment - Baby A Baseline FHR: 140 Heart Rate - NICHD Category: Category I (Normal) NST: Reactive Physician Notification - Physician Notified Physician Notified Date: 02/01/24 Physician Notified Time: 19:19 Physician: Glory Funes Order Received: Yes - Notification Comment Comment: RN spoke with Dr. Funes regarding triage pt c/o cramping that started yesterday, rating pain 10, describes it as sharp and comes and goes. Reported FHT, nothing tracing on toco monitor, pt reports having recurrent UTIs with last one occurring 5-6 weeks ago, and vital signs WNL. Orders to send UA, check cervix and orally hydrate. RN to call Dr. Funes with results. Maternal Triage Index - Maternal Triage Index Presenting for scheduled procedure w/no complaint: No - Stat/Priority 1 Stat Priority 1: No - Urgent/Priority 2 Urgent Priority 2: No - Prompt/Priority 3 Prompt Priority 3: No - Non-Urgent/Priority 4 Non-Urgent Priority 4: Yes Criteria Met for Priority 4: Pt presents to triage with c/o cramping that started yesterday, rates pain 10 out of 10 when it occurs and describes it as sharp pain that comes and goes Disposition - Disposition OB Disposition: Discharge to home Discharge Date: 02/01/24 Discharge Time: 22:22 I agree with the RN Medical Screening Exam: Yes Physician's MSE Comment: I have neither seen nor examined the patient Case reviewed; plan agreed upon as documented in EMR&OBIX.: Yes Diagnosis: MATERNAL CARE FOR PROBLEM, UNSP, SECOND * DO NOT USE *
== END 2024-02-01 22:22 | disposition home or self-care (01) ==
LOC: FBPOP 19:00
PROVIDERS: ATTEND Obstetrics & Gynecology
DX: O26.892 Other specified pregnancy related conditions, second trimester (principal); R25.2 Cramp and spasm; Z3A.25 25 weeks gestation of pregnancy; Z91.040 Latex allergy status; Z91.010 Allergy to peanuts; Z91.013 Allergy to seafood
CPT/HCPCS: 59025; 81001; 87086; G0463; 99213

== ENCOUNTER 2024-02-05 06:23 | Emergency (ER) | payer OTHER ==
--- NOTE | 2024-02-05 07:24 | ED ---
General Adult HPI - General Chief complaint: Upper Respiratory Infection Stated complaint: SOB, 25 weeks Time Seen by Provider: 02/05/24 07:00 Source: patient, RN notes reviewed Mode of arrival: ambulatory Limitations: no limitations - History of Present Illness Initial comments: 33-year-old female at 25 weeks gestation presenting with shortness of breath. States she has been short of breath during her entire however last night had an episode of awakening with the sensation that she cannot breathe. Denies any known triggers. Denies history of pulmonary issues. She also admits heart palpitations during her entire . She admits she had a URI about 2 weeks ago denies any current cough, fever. States she is lunchroom monitor nically congested due to seasonal allergies. Denies leg swelling, abdominal pain, vaginal bleeding. Denies history of preeclampsia, cardiac arrhythmias, or any significant medical history. - Related Data Home Medications Medication Instructions Recorded Confirmed No Known Home Medications 02/01/24 02/01/24 Allergies Allergy/AdvReac Type Severity Reaction Status Date / Time Latex, Natural Rubber Allergy Swelling Verified 02/05/24 08:52 peanut Allergy Swelling Verified 02/05/24 08:52 shellfish derived [Shellfish] Allergy Swelling Verified 02/05/24 08:52 Review of Systems ROS Statement: Those systems with pertinent positive or pertinent negative responses have been documented in the HPI. ROS Other: All systems not noted in ROS Statement are negative. Past Medical History Past Medical History: No Reported History History of Any Multi-Drug Resistant Organisms: None Reported Additional Past Surgical History / Comment(s): D&C, Past Anesthesia/Blood Transfusion Reactions: No Reported Reaction Past Psychological History: No Psychological Hx Reported Smoking Status: Never smoker Past Alcohol Use History: None Reported Past Drug Use History: None Reported - Past Family History Mother Family Medical History: Diabetes Mellitus Additional Family Medical History / Comment(s): Reported that runs in family; grandparents have General Exam Limitations: no limitations General appearance: alert, in no apparent distress Eye exam: Present: normal appearance, PERRL, EOMI. Absent: scleral icterus, conjunctival injection, periorbital swelling ENT exam: Present: normal exam, mucous membranes moist Respiratory exam: Present: normal lung sounds bilaterally. Absent: respiratory distress, wheezes, rales, rhonchi, stridor Cardiovascular Exam: Present: regular rate, normal rhythm, normal heart sounds. Absent: systolic murmur, diastolic murmur, rubs, gallop, clicks GI/Abdominal exam: Present: soft, normal bowel sounds. Absent: distended, tenderness, guarding, rebound, rigid Extremities exam: Present: normal inspection, other (No leg edema bilaterally) Skin exam: Present: warm, dry, intact, normal color. Absent: rash Course Vital Signs 02/05/24 06:25 Temperature 97.7 F Pulse Rate 97 Respiratory 16 Rate Blood Pressure 106/72 O2 Sat by Pulse 99 Oximetry EKG Findings - EKG Comments: EKG Findings:: Normal sinus rhythm with inverted T waves in lead III - EKG Results: EKG: sinus rhythm (Vent rate 84 bpm, SD interval 180, QRS duration 92, QT/QTc 352/392) Medical Decision Making - Medical Decision Making Was pt. sent in by a medical professional or institution (Dr. PA, INFORMATICS APPLICATION ANALYST, urgent care, hospital, or half-way...) When possible be specific @ -No Did you speak to anyone other than the patient for history (EMS, parent, family, police, friend...)? What history was obtained from this source @ -No Did you review nursing and triage notes (agree or disagree)? Why? @ -I reviewed and agree with nursing and triage notes Were old charts reviewed (outside hosp., previous admission, EMS record, old EKG, old radiological studies, urgent care reports/EKG's, half-way records)? Report findings @ -No old charts were reviewed Differential Diagnosis (chest pain, altered mental status, abdominal pain women, abdominal pain men, vaginal bleeding, weakness, fever, dyspnea, syncope, headache, dizziness, GI bleed, back pain, seizure, CVA, palpatations, mental health, musculoskeletal)? @ -Viral URI, pneumonia, arrhythmia, pulmonary embolism, preeclampsia EKG interpreted by me (3pts min.). @ -Normal sinus rhythm with inverted T waves in lead III X-rays interpreted by me (1pt min.). @ -None done CT interpreted by me (1pt min.). @ -None done U/S interpreted by me (1pt. min.). @ -None done What testing was considered but not performed or refused? (CT, X-rays, U/S, labs)? Why? @ -Chest x-ray ordered but refused by patient. Risks versus benefits discussed in detail. Patient shows understanding and declines. D-dimer not performed due to vital stable, no chest pain or current symptoms, normal EKG What meds were considered but not given or refused? Why? @ -None Did you discuss the management of the patient with other professionals (professionals i.e. , PA, INFORMATICS APPLICATION ANALYST, lab, RT, psych nurse, social science professor, hand sewer shoes, teacher, transportation officer, porter sample case)? Give summary @ -No Was smoking cessation discussed for >3mins.? @ -No Was critical care preformed (if so, how long)? @ -No Were there social determinants of health that impacted care today? How? (Homelessness, low income, unemployed, alcoholism, drug addiction, transportation, low edu. Level, literacy, decrease access to med. care, skilled nursing, rehab)? @ -No Was there de-escalation of care discussed even if they declined (Discuss DNR or withdrawal of care, Hospice)? DNR status @ -No What co-morbidities impacted this encounter? (DM, HTN, Smoking, COPD, CAD, Cancer, CVA, ARF, Chemo, Hep., AIDS, mental health diagnosis, sleep apnea, morbid obesity)? @ -None Was patient admitted / discharged? Hospital course, mention meds given and route, prescriptions, significant lab abnormalities, going to OR and other pert inent info. @ -Patient was discharged. Patient presented with episode of shortness of breath last night. Patient was seen and examined. Vitals were stable and examination was unremarkable. EKG revealed normal sinus rhythm with T wave inversions in lead III. Rapid flu, COVID, and RSV were negative. Lab work and urine were unremarkable. Patient had urine culture 2 days ago that returned negative. Patient received 500 mL IV fluids. Patient was asymptomatic during entire ER visit and was discharged in stable condition. Discussed close follow- up with PCP and OB. Undiagnosed new problem with uncertain prognosis? @ -No Drug Therapy requiring intensive monitoring for toxicity (Heparin, Nitro, Insulin, Cardizem)? @ -No Were any procedures done? @ -No Diagnosis/symptom? @ -Normal gestational changes Acute, or Chronic, or Acute on Chronic? @ -Acute Uncomplicated (without systemic symptoms) or Complicated (systemic symptoms)? @ -Uncomplicated Side effects of treatment? @ -No Exacerbation, Progression, or Severe Exacerbation? @ -No Poses a threat to life or bodily function? How? (Chest pain, [place], [place], pneumonia, PE, COPD, DKA, ARF, appy, cholecystitis, CVA, Diverticulitis, Homicidal, S uicidal, threat to staff... and all critical care pts) @ -No Disposition Clinical Impression: Shortness of breath due to Disposition: HOME SELF-CARE Condition: Stable Additional Instructions: Please return to the Emergency Department if symptoms worsen or any other ascencion rns. Is patient prescribed a controlled substance at d/c from ED?: No Referrals: Jerome Riggs MD [Primary Care Provider] - 1-2 days Time of Disposition: 09:32
[2024-02-05] MEDS: SODIUM CHLORIDE 0.9% 500 ML 500 ML IV STA (07:44)
[2024-02-05 07:52] LABS: Basophils % (A) 0 %; Eosinophils # (A) 0.2 k/uL (0-0.7); Eosinophils % (A) 2 %; HGB 10.9 gm/dL (11.4-16.0); Lymphocytes # (A) 1.5 k/uL (1.0-4.8); Lymphocytes % (A) 17 %; MCH 29.1 pg (25.0-35.0); Mean Platelet Volume 8.1; Monocytes # (A) 0.4 k/uL (0-1.0); Monocytes % (A) 4 %; Neutrophils # (A) 6.3 k/uL (1.3-7.7); Neutrophils % (A) 75 %; Platelet Count 263 k/uL (150-450); RBC 3.75 m/uL (3.80-5.40); RDW 13.8 % (11.5-15.5); WBC 8.5 k/uL (3.8-10.6)
[2024-02-05 07:59] VITALS: RESP 18
[2024-02-05 07:59] LABS: Appearance,Urine Clear (Clear); Bacteria,Urine Occasional /hpf; Bilirubin,Urine Negative (Negative); Blood,Urine Negative (Negative); Color,Urine Colorless; Glucose,Urine (UA) Negative (Negative); Ketones,Urine Negative (Negative); Leukocyte Esterase,Urine Moderate (Negative); Nitrite,Urine Negative (Negative); PH, Urine 6.5 (5.0-8.0); Protein,Urine Negative (Negative); Specific Gravity,Urine 1.009 (1.001-1.035); Squamous Epithelial Cell,Urine 2 /hpf (0-4); Urobilinogen,Urine <2.0 mg/dL (<2.0); WBC,Urine 3 /hpf (0-5)
[2024-02-05 08:07] LABS: ALT 9 U/L (4-34); AST 14 U/L (14-36); African American GFR (CKD) >90 (>60 ml/min/1.73 sqM); Albumin 3.1 g/dL (3.5-5.0); Alkaline Phosphatase 93 U/L (38-126); Anion Gap 5 mmol/L; Blood Urea Nitrogen 5 mg/dL (7-17); Calcium 8.2 mg/dL (8.4-10.2); Carbon Dioxide 21 mmol/L (22-30); Chloride 108 mmol/L (98-107); Glucose 88 mg/dL (74-99); Non-African American GFR(CKD) >90 (>60 ml/min/1.73 sqM); Potassium 3.6 mmol/L (3.5-5.1); Sodium 134 mmol/L (137-145); Total Bilirubin 0.2 mg/dL (0.2-1.3); Total Protein 5.8 g/dL (6.3-8.2)
[2024-02-05 10:09] VITALS: BP 108/60; PULSE 94; TEMP 98
== END 2024-02-05 10:08 | disposition home or self-care (01) ==
LOC: EC 06:23
DX: O99.512 Diseases of the respiratory system complicating pregnancy, second trimester (principal); R06.02 Shortness of breath; Z91.040 Latex allergy status; Z91.013 Allergy to seafood; Z91.010 Allergy to peanuts; Z3A.25 25 weeks gestation of pregnancy
CPT/HCPCS: 36415; 80053; 81001; 85025; 87636; 93005; 96360; 99285

== ENCOUNTER 2024-02-15 16:55 | Outpatient (CLI) | payer OTHER ==
[2024-02-15 18:09] LABS: Appearance,Urine Cloudy (Clear); Bacteria,Urine Rare /hpf; Bilirubin,Urine Negative (Negative); Blood,Urine Negative (Negative); Color,Urine Light Yellow; Glucose,Urine (UA) Negative (Negative); Ketones,Urine 2+ (Negative); Leukocyte Esterase,Urine Small (Negative); Mucus,Urine Rare /hpf; Nitrite,Urine Negative (Negative); Protein,Urine Negative (Negative); RBC,Urine 1 /hpf (0-5); Specific Gravity,Urine 1.018 (1.001-1.035); Squamous Epithelial Cell,Urine 13 /hpf (0-4); Urobilinogen,Urine <2.0 mg/dL (<2.0); WBC,Urine 3 /hpf (0-5)
[2024-02-15] MEDS: LACTATED RINGERS 1,000 ML IV ONE ×2 (19:15→20:30)
[2024-02-15 21:43] VITALS: BP 118/60; PULSE 100; RESP 18; TEMP 98.3
--- NOTE | 2024-02-27 18:18 | P.MSEPDOC ---
Presenting Problems - Arrival Data Date of Arrival on Unit: 02/15/24 Time of Arrival on Unit: 16:55 Mode of Transport: Ambulatory - Complaint OB-Reason for Admission/Chief Complaint: Possible Onset of Labor, Acute Nausea/Vomiting Comment: Dr Stewart in unit, given report on urinalysis and patient states that her daughter was in the ER earlier today with a stomach bug. patient pointing to upper abdomen/stomach area of where the cramping is. reported also on some contractions tracing every 5 minutes. order for 2000ml IV fluid bolus and zofran if patient wishes. Medical History - Information : 4 Para: 2 Term: 2 : 0 Abortions: Spontaneous or Elective: 1 Number of Living Children: 2 - Gestational Age Gestational Age by EMMANUEL (wks/days): 27 Weeks and 1 Days Review of Systems - Review of Systems Constitutional: No problems Breast: No problems ENT: No problems Cardiovascular: No problems Respiratory: No problems Gastrointestinal: No problems Genitourinary: No problems Musculoskeletal: No problems Neurological: No problems Skin: No problems Vital Signs - Temperature Temperature: 98.3 F Temperature Source: Temporal Artery Scan - Pulse Pulse Oximetery Pulse Rate: 100 Pulse Assessment Method: Pulse Oximetry - Respirations Respiratory Rate: 18 Oxygen Delivery Method: Room Air O2 Sat by Pulse Oximetry: 99 - Blood Pressure Right Arm Blood Pressure: 118/60 Blood Pressure Mean: 79 Blood Pressure Source: Automatic Cuff Medical Screen Scoring - Assessment - Baby A Baseline FHR: 150 Heart Rate - NICHD Category: Category I (Normal) Physician Notification - Physician Notified Physician Notified Date: 02/15/24 Physician Notified Time: 19:07 Physician: Juan Stewart - Notification Comment Comment: Dr Stewart in unit, given report on urinalysis and patient states that her daughter was in the ER earlier today with a stomach bug. patient pointing to upper abdomen/stomach area of where the cramping is. reported also on some contractions tracing every 5 minutes. order for 2000ml IV fluid bolus and zofran if patient wishes. Maternal Triage Index - Maternal Triage Index Presenting for scheduled procedure w/no complaint: No - Stat/Priority 1 Stat Priority 1: No - Urgent/Priority 2 Urgent Priority 2: Yes Provider Notified: Juan Stewart Provider Notified Time: 19:07 Criteria Met for Priority 2: Dr Stewart in unit, given report on urinalysis and patient states that her daughter was in the ER earlier today with a stomach bug. patient pointing to upper abdomen/stomach area of where the cramping is. reported also on some contractions tracing every 5 minutes. order for 2000ml IV fluid bolus and zofran if patient wishes. Disposition - Disposition OB Disposition: Discharge to home Discharge Date: 02/15/24 Discharge Time: 21:10 I agree with the RN Medical Screening Exam: Yes Physician's MSE Comment: I have neither seen nor examined the patient Case reviewed; plan agreed upon as documented in EMR&OBIX.: Yes Diagnosis: MATERNAL CARE FOR PROBLEM, UNSP, SECOND * DO NOT USE *
== END 2024-02-15 21:10 | disposition home or self-care (01) ==
LOC: FBPOP 16:55
PROVIDERS: ATTEND Obstetrics & Gynecology
DX: O47.02 False labor before 37 completed weeks of gestation, second trimester (principal); O21.9 Vomiting of pregnancy, unspecified; O26.892 Other specified pregnancy related conditions, second trimester; R25.2 Cramp and spasm; Z3A.27 27 weeks gestation of pregnancy; Z91.040 Latex allergy status; Z91.010 Allergy to peanuts; Z91.013 Allergy to seafood
CPT/HCPCS: 96360; 96361; 36415; 81001; G0463; 99213; 99214

== ENCOUNTER 2024-04-22 21:31 | Outpatient (CLI) | payer OTHER ==
[2024-04-22 23:15] VITALS: BP 123/76; PULSE 110; RESP 16; TEMP 97.9
--- NOTE | 2024-05-20 09:27 | P.MSEPDOC ---
Presenting Problems - Arrival Data Date of Arrival on Unit: 04/22/24 Time of Arrival on Unit: 21:31 Mode of Transport: Wheelchair - Complaint OB-Reason for Admission/Chief Complaint: Rule Out PROM Comment: Patient present to triage via wheelchair escorted by security from ED for rule out SROM Medical History - Information : 4 Para: 2 Term: 2 : 0 Abortions: Spontaneous or Elective: 1 Number of Living Children: 2 - Gestational Age Gestational Age by EMMANUEL (wks/days): 36 Weeks and 5 Days Review of Systems - Review of Systems Constitutional: No problems Breast: No problems ENT: No problems Cardiovascular: No problems Respiratory: No problems Gastrointestinal: No problems Genitourinary: No problems Musculoskeletal: No problems Neurological: No problems Skin: No problems Vital Signs - Temperature Temperature: 97.9 F Temperature Source: Temporal Artery Scan - Pulse Pulse Oximetery Pulse Rate: 110 Pulse Assessment Method: Pulse Oximetry - Respirations Respiratory Rate: 16 Oxygen Delivery Method: Room Air O2 Sat by Pulse Oximetry: 97 - Blood Pressure Right Arm Blood Pressure: 123/76 Blood Pressure Mean: 91 Blood Pressure Source: Automatic Cuff Medical Screen Scoring - Cervical Exam Dilation (cm): 3 Effacement (%): 50 Station: -3 Membranes: Intact - Uterine Contractions Frequency From (mins): 7 Frequency To (mins): 9 Duration From (seconds): 30 Duration To (seconds): 70 Intensity: Mild Resting: Soft to palpation - Assessment - Baby A Baseline FHR: 140 Heart Rate - NICHD Category: Category I (Normal) NST: Reactive Physician Notification - Physician Notified Physician Notified Date: 04/22/24 Physician Notified Time: 22:19 Physician: Nichole Gao New Order Received: Yes - Notification Comment Comment: RN reported on patient and status. Contractions every 7-9 minutes since being on TOCO. Reactive NST with one late and one variable since being on the monitor. Patient complaint of SROM, negative amnisure result, cervical exam unchanged from office visit on 04/18/24 (3/50%/high). stable vital signs. Verbal orders to watch for another 30 minutes and if the heart tones remain category 1 patient can be discharged home. Maternal Triage Index - Maternal Triage Index Presenting for scheduled procedure w/no complaint: No - Stat/Priority 1 Stat Priority 1: No - Urgent/Priority 2 Urgent Priority 2: No - Prompt/Priority 3 Prompt Priority 3: Yes Criteria Met for Priority 3: Patient present to triage via wheelchair escorted by security from ED for rule out SROM Disposition - Disposition OB Disposition: Discharge to home Discharge Date: 04/22/24 Discharge Time: 23:07 I agree with the RN Medical Screening Exam: Yes Case reviewed; plan agreed upon as documented in EMR&OBIX.: Yes Diagnosis: FALSE LABOR BEFORE 37 COMPLETED WEEKS OF GEST, THIRD TRI
== END 2024-04-22 23:17 | disposition home or self-care (01) ==
LOC: FBPOP 21:31
PROVIDERS: ATTEND Obstetrics & Gynecology Obstetrics
DX: O47.03 False labor before 37 completed weeks of gestation, third trimester (principal); Z3A.36 36 weeks gestation of pregnancy; Z91.040 Latex allergy status; Z91.013 Allergy to seafood; Z91.010 Allergy to peanuts
CPT/HCPCS: 59025; 84112; G0463; 99213

== ENCOUNTER 2024-05-02 03:10 | Inpatient (IN) | payer OTHER ==
[2024-05-02] MEDS ORDERED: CARBOPROST TROMETHAMINE 250 MCG/ML 1 ML AMP IM PRN (04:09)
[2024-05-02] MEDS ORDERED: miSOPROStoL 200 MCG TAB PO PRN (04:09)
[2024-05-02] MEDS ORDERED: METHYLERGONOVINE 0.2 MG/ML 1 ML AMP IM PRN (04:09)
[2024-05-02] MEDS ORDERED: LIDOCAINE 0.5% (PF) 5 MG/ML (50 ML SDV) SQ PRN (04:09)
[2024-05-02] MEDS ORDERED: miSOPROStoL 200 MCG TAB RECTAL PRN (04:09)
[2024-05-02] MEDS ORDERED: TRANEXAMIC 1,000 MG/100ML-NACL 1,000 MG in EMPTY BAG 1 BAG IV PRN (04:09)
[2024-05-02] MEDS ORDERED: TERBUTALINE 1 MG/ML VIAL SQ PRN (04:09)
[2024-05-02] MEDS ORDERED: OXYTOCIN 10 UNIT/ML 1 ML VIAL IM PRN (04:09)
[2024-05-02] MEDS: LACTATED RINGERS 1,000 ML IV SCH (04:10)
[2024-05-02] MEDS ORDERED: OXYTOCIN 30 UNITS/500 ML NS 30 UNIT in SALINE 1 500ML.BAG IV SCH ×2 (04:15→10:45)
[2024-05-02 04:34] LABS: Basophils % (A) 0 %; Eosinophils # (A) 0.1 k/uL (0-0.7); Eosinophils % (A) 2 %; HCT 35.2 % (34.0-46.0); HGB 11.1 gm/dL (11.4-16.0); Lymphocytes # (A) 1.7 k/uL (1.0-4.8); Lymphocytes % (A) 19 %; MCH 26.4 pg (25.0-35.0); MCHC 31.5 g/dL (31.0-37.0); MCV 83.6 fL (80.0-100.0); Mean Platelet Volume 7.8; Monocytes # (A) 0.3 k/uL (0-1.0); Monocytes % (A) 4 %; Neutrophils # (A) 6.9 k/uL (1.3-7.7); Neutrophils % (A) 75 %; Platelet Count 346 k/uL (150-450); RBC 4.21 m/uL (3.80-5.40); RDW 14.4 % (11.5-15.5); WBC 9.2 k/uL (3.8-10.6)
--- NOTE | 2024-05-02 08:22 | P.HPOB ---
History of Present Illness H&P Date: 05/02/24 Chief Complaint: 38-1/7 weeks, labor Patient is a 34-year-old 4 para 2-0-1-2 admitted at 38-1/7 weeks as established by 13-week ultrasound. She is admitted in early active labor with all signs reassuring, category 1 heart rate tracing. Her has been uncomplicated though she had trichomonas at her initial visit which was treated and cured. Group B strep status is negative. Obstetrical history: 4 para 2-0-1-2 with 2 term vaginal deliveries without complications. Current statistics are listed in history of present illness. EDC of 05/17/2024 was established by 13-week ultrasound. Laboratory workup demonstrates a blood type of A+ with a negative antibody screen. Rubella status is immune. The remainder of the laboratory workup is within normal limits. 1 hour Glucola was normal and group B strep status is negative. Gynecologic history: Unremarkable with a history of trichomonas in the early part of the which was treated and cured. There is no other history of infections to include other STDs. Review of Systems Review of systems is confined to history of present illness. Past Medical History Past Medical History: No Reported History History of Any Multi-Drug Resistant Organisms: None Reported Additional Past Surgical History / Comment(s): D&C Past Anesthesia/Blood Transfusion Reactions: No Reported Reaction Past Psychological History: No Psychological Hx Reported Smoking Status: Never smoker Past Alcohol Use History: None Reported Past Drug Use History: None Reported - Past Family History Mother Family Medical History: Diabetes Mellitus Additional Family Medical History / Comment(s): Reported that runs in family; grandparents have Medications and Allergies Home Medications Medication Instructions Recorded Confirmed Type No Known Home Medications 02/01/24 05/02/24 History Allergies Allergy/AdvReac Type Severity Reaction Status Date / Time Latex, Natural Rubber Allergy Swelling Verified 04/22/24 21:43 peanut Allergy Swelling Verified 04/22/24 21:43 shellfish derived [Shellfish] Allergy Swelling Verified 04/22/24 21:43 Exam Vital Signs Temp Pulse Resp BP Pulse Ox 05/02/24 04:08 97.1 F L 89 16 120/69 97 05/02/24 03:12 97.1 F L 89 16 120/69 97 Intake and Output 05/01/24 05/02/24 05/02/24 22:59 06:59 14:59 Output Total 300 Balance -300 Output: Urine 300 Other: # Voids 1 Weight 95.254 kg In general, this is a well-developed, well-nourished -[place] female in no acute distress. Her heart has a regular rhythm and rate without murmur. Her lungs are clear to auscultation bilaterally in all darling. Her abdomen is gravid, nondistended, has normal active bowel sounds, soft, nontender, and without any palpable masses aside from the uterine fundus. Her extremities are without any cyanosis, clubbing, or edema and are nontender to palpation bilaterally. Digital cervical examination demonstrates her cervix to be approximately 5 to 6 cm dilated, 50 to 60% effaced, with a vertex and presentation at -2 station. Artificial rupture of membranes is carried out demonstrating clear fluid. Results Result Diagrams: 05/02/24 04:15 Abnormal Lab Results - Last 24 Hours (Table) 05/02/24 Range/Units 04:15 Hgb 11.1 L (11.4-16.0) gm/dL Assessment and Plan (1) Active labor at term Current Visit: Yes Status: Acute Code(s): [id number] - SNOMED Code(s): 10001964 Plan: The patient is admitted for active management of labor. An epidural catheter has been placed for analgesia. She will have close maternal and surveillance and expectant management will be practiced. Should she make no significant progress in the next hour or so, Pitocin augmentation will be added.
[2024-05-02] MEDS ORDERED: diphenhydrAMINE 25 MG CAP PO PRN (10:38)
[2024-05-02] MEDS ORDERED: ZOLPIDEM 5 MG TAB PO PRN (10:38)
[2024-05-02] MEDS ORDERED: HYDROCORTISONE 2.5% RECTAL CREAM 30 GM TUBE RECTAL PRN (10:38)
[2024-05-02] MEDS ORDERED: HYDROcodone/APAP 5-325MG 1 EACH TAB PO PRN (10:38)
[2024-05-02] MEDS ORDERED: diphenhydrAMINE 50 MG/ML 1 ML VIAL IVP PRN ×2 (10:38)
[2024-05-02] MEDS ORDERED: diphenhydrAMINE 50 MG CAP PO PRN (10:38)
[2024-05-02] MEDS ORDERED: HYDROcodone/APAP 7.5-325MG 1 EACH TAB PO PRN (10:38)
[2024-05-02] MEDS ORDERED: BENZOCAINE/MENTHOL SPRAY 1 GM/SPRAY AEROSOL TOPICAL PRN (10:38)
[2024-05-02] MEDS ORDERED: SIMETHICONE 80 MG CHEWABLE PO PRN (10:38)
--- NOTE | 2024-05-02 10:41 | P.PROBDLV ---
Vaginal Delivery Note - . Vaginal Delivery Note: Patient is a 34-year-old 4 para 2-0-1-2 admitted at 38-1/7 weeks by good dating parameters. She is admitted in early active labor with all signs reassuring, category 1 heart rate tracing. Her has been essentially uncomplicated and group B strep status is negative. On labor and delivery, she had an epidural catheter placed for analgesia and underwent artificial rupture of membranes for clear fluid. She progressed on her own to complete and then pushed over the course of approximately 10 minutes to a normal spontaneous vaginal delivery of a viable 8 pound 0 ounce baby girl with Apgars of 8 at 1 minute and 9 at 5 minutes delivered in the left occiput anterior position. The placenta was delivered spontaneously, intact, and grossly normal with a grossly normal, centrally inserted three-vessel cord. The cord was significantly short. There were no significant lacerations the perineum, vagina, or cervix. Estimated blood loss for the case was 100 mL or less. There were no complications. All sponge, instrument, and needle counts were correct. Both mother and are resting comfortably in recovery.
[2024-05-02] MEDS: IBUPROFEN 600 MG TAB PO PRN (11:09)
[2024-05-02] MEDS: ACETAMINOPHEN TAB 325 MG TAB PO PRN (16:58)
[2024-05-02] MEDS: SENNOSIDES-DOCUSATE SODIUM 1 EACH TAB PO SCH (22:14)
[2024-05-03 08:05] LABS: Basophils % (A) 0 %; Eosinophils # (A) 0.2 k/uL (0-0.7); Eosinophils % (A) 2 %; HCT 32.6 % (34.0-46.0); HGB 10.2 gm/dL (11.4-16.0); Hypochromasia Slight; Lymphocytes # (A) 1.7 k/uL (1.0-4.8); Lymphocytes % (A) 15 %; MCH 26.1 pg (25.0-35.0); MCHC 31.1 g/dL (31.0-37.0); MCV 83.9 fL (80.0-100.0); Mean Platelet Volume 8.2; Monocytes # (A) 0.5 k/uL (0-1.0); Monocytes % (A) 5 %; Neutrophils # (A) 8.3 k/uL (1.3-7.7); Neutrophils % (A) 77 %; Platelet Count 313 k/uL (150-450); RBC 3.89 m/uL (3.80-5.40); RDW 14.5 % (11.5-15.5); WBC 10.8 k/uL (3.8-10.6)
[2024-05-03 08:23] VITALS: RESP 16; TEMP 97.9
--- NOTE | 2024-05-03 08:23 | P.DS ---
Providers Date of admission: 05/02/24 04:08 Expected date of discharge: 05/03/24 Attending physician: Juan Stewart Primary care physician: Stated None - Discharge Diagnosis(es) (1) Active labor at term Current Visit: Yes Status: Acute (2) Normal spontaneous vaginal delivery Current Visit: Yes Status: Acute Hospital Course: Patient is a 34-year-old 4 para 2-0-1-2 admitted at 38-1/7 weeks by good dating parameters. She is admitted in early active labor with all signs reassuring, category 1 heart rate tracing. Her was uncomplicated and group B strep status is negative. On labor and delivery, she underwent artificial rupture of membranes for clear fluid and had Pitocin augmentation started. She had an epidural catheter placed for analgesia. She made fairly quick progress to complete and then pushed to a normal spontaneous vaginal delivery of a viable 8 pound 0 ounce baby girl with Apgars of 8 at 1 minute and 9 at 5 minutes. Her course was unremarkable with vital signs remaining stable and her temperature was afebrile throughout. She was deemed stable for discharge on day #1 and was discharged home to follow-up in the office in 6 weeks time routinely. Discharge instructions included calling for any significantly increased bleeding or foul-smelling lochia, significantly increased fever or abdominal pain, perineal complaints, breast complaints, or anything else that concerned her. She was additionally instructed to have nothing in the vagina to include intercourse over the next 6 weeks time. She understood her instructions and agrees to follow-up as noted above. Discharge medications included only [id number] analgesic pain medications. Maternal blood type is a positive and rubella status is immune. Procedures: 1. Epidural analgesia #2. Artificial rupture of membranes #3. Pitocin augmentation #4. Normal spontaneous vaginal delivery Plan - Discharge Summary New Discharge Prescriptions: No Action No Known Home Medications Discharge Medication List No Known Home Medications 02/01/24 [History] Follow up Appointment(s)/Referral(s): Juan Stewart MD [STAFF PHYSICIAN] - 06/13/24 1:15 pm Discharge Disposition: HOME SELF-CARE
[2024-05-03 16:07] VITALS: BP 104/69; PULSE 70
== END 2024-05-03 18:53 | disposition home or self-care (01) | DRG 560 ==
LOC: FBPOP 03:10 → 4FBP 04:08
PROVIDERS: ADMIT Obstetrics & Gynecology; ATTEND Obstetrics & Gynecology
PROC: 10E0XZZ Delivery of Products of Conception, External Approach (ICD-10-PCS; principal; 2024-05-02)
PROC: 10907ZC Drainage of Amniotic Fluid, Therapeutic from Products of Conception, Via Natural or Artificial Opening (ICD-10-PCS; principal; 2024-05-02)
DX: O80 Encounter for full-term uncomplicated delivery (principal); Z37.0 Single live birth; Z3A.38 38 weeks gestation of pregnancy; Z28.310 Unvaccinated for COVID-19
CPT/HCPCS: 59025; 84112; 85025; 86850; 86900; 86901; 99213

== ENCOUNTER 2024-05-06 03:22 | Emergency (ER) | payer OTHER ==
[2024-05-06 03:34] VITALS: RESP 18
[2024-05-06 04:54] LABS: Basophils % (A) 0 %; Eosinophils # (A) 0.2 k/uL (0-0.7); Eosinophils % (A) 3 %; HGB 10.6 gm/dL (11.4-16.0); Lymphocytes # (A) 1.7 k/uL (1.0-4.8); Lymphocytes % (A) 20 %; MCH 27.1 pg (25.0-35.0); MCHC 32.2 g/dL (31.0-37.0); MCV 84.3 fL (80.0-100.0); Mean Platelet Volume 7.4; Monocytes # (A) 0.2 k/uL (0-1.0); Monocytes % (A) 3 %; Neutrophils # (A) 6.3 k/uL (1.3-7.7); Neutrophils % (A) 73 %; Platelet Count 350 k/uL (150-450); RBC 3.91 m/uL (3.80-5.40); RDW 14.6 % (11.5-15.5); WBC 8.6 k/uL (3.8-10.6)
[2024-05-06 04:59] LABS: ALT 42 U/L (4-34); AST 29 U/L (14-36); African American GFR (CKD) >90 (>60 ml/min/1.73 sqM); Albumin 3.2 g/dL (3.5-5.0); Alkaline Phosphatase 122 U/L (38-126); Anion Gap 6 mmol/L; Blood Urea Nitrogen 8 mg/dL (7-17); Calcium 8.9 mg/dL (8.4-10.2); Carbon Dioxide 21 mmol/L (22-30); Chloride 108 mmol/L (98-107); Glucose 91 mg/dL (74-99); LDH 221 U/L (120-246); Non-African American GFR(CKD) >90 (>60 ml/min/1.73 sqM); Potassium 4.1 mmol/L (3.5-5.1); Sodium 135 mmol/L (137-145); Total Bilirubin 0.3 mg/dL (0.2-1.3); Total Protein 5.8 g/dL (6.3-8.2); Uric Acid 4.5 mg/dL (3.7-7.4)
[2024-05-06 05:08] LABS: NT-Pro-B-Type Natriuretic Pept 36 pg/mL
[2024-05-06 05:20] LABS: INR 0.9 (<1.2); Prothrombin Time 9.8 sec (10.0-12.5)
[2024-05-06 06:23] LABS: Appearance,Urine Cloudy (Clear); Bilirubin,Urine Negative (Negative); Blood,Urine Large (Negative); Color,Urine Colorless; Glucose,Urine (UA) Negative (Negative); Ketones,Urine Negative (Negative); Leukocyte Esterase,Urine Large (Negative); Mucus,Urine Rare /hpf; Nitrite,Urine Negative (Negative); Protein,Urine Negative (Negative); RBC,Urine 5 /hpf (0-5); Specific Gravity,Urine 1.016 (1.001-1.035); Squamous Epithelial Cell,Urine 12 /hpf (0-4); Urobilinogen,Urine <2.0 mg/dL (<2.0); WBC,Urine 111 /hpf (0-5)
--- NOTE | 2024-05-06 06:46 | ED ---
General Adult HPI - General Chief complaint: Extremity Problem,Nontraumatic Stated complaint: Leg swelling Time Seen by Provider: 05/06/24 03:43 Source: patient Mode of arrival: ambulatory Limitations: no limitations - History of Present Illness Initial comments: 34-year-old female presents emergency department reporting to bilateral lower extremity swelling. Patient is 4 days . States that she has had worsening lower extremity edema. She denies a history of eclampsia or preeclampsia. No history of cardiomyopathy. She denies any chest pain or shortness of breath. No history of DVT or PE. No right upper quadrant pain. Denies headaches. She does admit to some pubic tenderness to palpation. Denies any heavy vaginal bleeding. Reports that her bleeding has been tapering off. No fevers no other alleviating, precipitating modifying factors - Related Data Home Medications Medication Instructions Recorded Confirmed No Known Home Medications 02/01/24 05/02/24 Allergies Allergy/AdvReac Type Severity Reaction Status Date / Time Latex, Natural Rubber Allergy Swelling Verified 05/06/24 03:34 peanut Allergy Swelling Verified 05/06/24 03:34 shellfish derived [Shellfish] Allergy Swelling Verified 05/06/24 03:34 Review of Systems ROS Statement: Those systems with pertinent positive or pertinent negative responses have been documented in the HPI. ROS Other: All systems not noted in ROS Statement are negative. Past Medical History Past Medical History: No Reported History History of Any Multi-Drug Resistant Organisms: None Reported Additional Past Surgical History / Comment(s): D&C Past Anesthesia/Blood Transfusion Reactions: No Reported Reaction Past Psychological History: No Psychological Hx Reported Smoking Status: Never smoker Past Alcohol Use History: None Reported Past Drug Use History: None Reported - Past Family History Mother Family Medical History: Diabetes Mellitus Additional Family Medical History / Comment(s): Reported that runs in family; grandparents have General Exam Limitations: no limitations General appearance: alert, in no apparent distress Head exam: Present: atraumatic, normocephalic, normal inspection Eye exam: Present: normal appearance, PERRL, EOMI. Absent: scleral icterus, conjunctival injection, periorbital swelling ENT exam: Present: normal exam, mucous membranes moist Neck exam: Present: normal inspection. Absent: tenderness, meningismus, lymphadenopathy Respiratory exam: Present: normal lung sounds bilaterally. Absent: respiratory distress, wheezes, rales, rhonchi, stridor Cardiovascular Exam: Present: regular rate, normal rhythm, normal heart sounds. Absent: systolic murmur, diastolic murmur, rubs, gallop, clicks GI/Abdominal exam: Present: soft, normal bowel sounds. Absent: distended, tenderness, guarding, rebound, rigid Extremities exam: Present: normal inspection, full ROM, normal capillary refill, pedal edema (2+ pitting edema). Absent: tenderness, joint swelling, calf tenderness Back exam: Present: normal inspection Neurological exam: Present: alert, oriented X3, CN II-XII intact Psychiatric exam: Present: normal affect, normal mood Skin exam: Present: warm, dry, intact, normal color. Absent: rash Course Vital Signs 05/06/24 05/06/24 03:26 07:03 Temperature 98.1 F 98.2 F Pulse Rate 83 75 Respiratory 18 18 Rate Blood Pressure 122/74 118/83 O2 Sat by Pulse 98 99 Oximetry Medical Decision Making - Medical Decision Making Was pt. sent in by a medical professional or institution (, PA, [employer] INTELLIGENCE CONSULTANT, urgent care, hospital, or care home...) When possible be specific @ -No Did you speak to anyone other than the patient for history (EMS, parent, family, police, friend...)? What history was obtained from this source @ -Spoke with EMS for history Did you review nursing and triage notes (agree or disagree)? Why? @ -I reviewed and agree with nursing and triage notes Were old charts reviewed (outside hosp., previous admission, EMS record, old EKG, old radiological studies, urgent care reports/EKG's, care home records)? Report findings @ -No old charts were reviewed Differential Diagnosis (chest pain, altered mental status, abdominal pain women, abdominal pain men, vaginal bleeding, weakness, fever, dyspnea, syncope, headache, dizziness, GI bleed, back pain, seizure, CVA, palpatations, mental health, musculoskeletal)? @ -DVT, cardiomyopathy, preeclampsia, peripheral edema EKG interpreted by me (3pts min.). @ -Not done X-rays interpreted by me (1pt min.). @Yes and demonstrates no acute process CT interpreted by me (1pt min.). @ -None done U/S interpreted by me (1pt. min.). @ -None done What testing was considered but not performed or refused? (CT, X-rays, U/S, labs)? Why? @ -None What meds were considered but not given or refused? Why? @ -None Did you discuss the management of the patient with other professionals (professionals i.e. , PA, [employer] BUSINESS INTELLIGENCE CONSULTANT, lab, RT, psych nurse, renal social worker, healthcare consultant, t eacher, regulatory compliance officer, supportive employment case manager)? Give summary @ -No Was smoking cessation discussed for >3mins.? @ -No Was critical care preformed (if so, how long)? @ -No Were there social determinants of health that impacted care today? How? (Homelessness, low income, unemployed, alcoholism, drug addiction, transportation, low edu. Level, literacy, decrease access to med. care, fpc, rehab)? @ -No Was there de-escalation of care discussed even if they declined (Discuss DNR or withdrawal of care, Hospice)? DNR status @ -No What co-morbidities impacted this encounter? (DM, HTN, Smoking, COPD, CAD, Cancer, CVA, ARF, Chemo, Hep., AIDS, mental health diagnosis, sleep apnea, morbid obesity)? @ -None Was patient admitted / discharged? Hospital course, mention meds given and route, prescriptions, significant lab abnormalities, going to OR and other pertinent info. @ -Upon arrival patient seen and evaluated in room 28. Thorough history and physical exam was performed. IV access is established and laboratory studies are conducted. Patient has no chest pain or shortness of breath. Labs are u nremarkable. No signs of cardiomyopathy in or ED clamp Francesca/preeclampsia. Patient likely has peripheral edema due to intravenous fluid she received during delivery. At this time patient is to rest and elevate her extremities. Wear compression stockings. Follow-up with her OB and return for any new or worsening symptoms. Patient agreeable plan was discharged in stable condition Undiagnosed new problem with uncertain prognosis? @ -No Drug Therapy requiring intensive monitoring for toxicity (Heparin, Nitro, Insulin, Cardizem)? @ -No Were any procedures done? @ -No Diagnosis/symptom? @ -Acute peripheral edema, status post vaginal delivery Acute, or Chronic, or Acute on Chronic? @ -Acute Uncomplicated (without systemic symptoms) or Complicated (systemic symptoms)? @ -Complicated Side effects of treatment? @ -No Exacerbation, Progression, or Severe Exacerbation? @ -No Poses a threat to life or bodily function? How? (Chest pain, USA, CT, pneumonia, PE, COPD, DKA, ARF, appy, cholecystitis, CVA, Diverticulitis, Homicidal, Suicidal, threat to staff... and all critical care pts) @ -No - Lab Data Result diagrams: 05/06/24 04:27 05/06/24 04:27 Lab Results 05/06/24 05/06/24 05/06/24 Range/Units 04:27 04:27 04:27 WBC 8.6 (3.8-10.6) k/uL RBC 3.91 (3.80-5.40) m/uL Hgb 10.6 L (11.4-16.0) gm/dL Hct 33.0 L (34.0-46.0) % MCV 84.3 (80.0-100.0) fL MCH 27.1 (25.0-35.0) pg MCHC 32.2 (31.0-37.0) g/dL RDW 14.6 (11.5-15.5) % Plt Count 350 (150-450) k/uL MPV 7.4 Neutrophils % 73 % Lymphocytes % 20 % Monocytes % 3 % Eosinophils % 3 % Basophils % 0 % Neutrophils # 6.3 (1.3-7.7) k/uL Lymphocytes # 1.7 (1.0-4.8) k/uL Monocytes # 0.2 (0-1.0) k/uL Eosinophils # 0.2 (0-0.7) k/uL Basophils # 0.0 (0-0.2) k/uL PT 9.8 L (10.0-12.5) sec INR 0.9 (<1.2) Sodium 135 L (137-145) mmol/L Potassium 4.1 (3.5-5.1) mmol/L Chloride 108 H (98-107) mmol/L Carbon Dioxide 21 L (22-30) mmol/L Anion Gap 6 mmol/L BUN 8 (7-17) mg/dL Creatinine 0.48 L (0.52-1.04) mg/dL Est GFR (CKD-EPI)AfAm >90 (>60 ml/min/1.73 sqM) Est GFR (CKD-EPI)NonAf >90 (>60 ml/min/1.73 sqM) Glucose 91 (74-99) mg/dL Uric Acid 4.5 (3.7-7.4) mg/dL Calcium 8.9 (8.4-10.2) mg/dL Total Bilirubin 0.3 (0.2-1.3) mg/dL AST 29 (14-36) U/L ALT 42 H (4-34) U/L Alkaline Phosphatase 122 (38-126) U/L Lactate Dehydrogenase 221 (120-246) U/L NT-Pro-B Natriuret Pep 36 pg/mL Total Protein 5.8 L (6.3-8.2) g/dL Albumin 3.2 L (3.5-5.0) g/dL Urine Color Urine Appearance (Clear) Urine pH (5.0-8.0) Ur Specific [place] (1.001-1.035) Urine Protein (Negative) Urine Glucose (UA) (Negative) Urine Ketones (Negative) Urine Blood (Negative) Urine Nitrite (Negative) Urine Bilirubin (Negative) Urine Urobilinogen (<2.0) mg/dL Ur Leukocyte Esterase (Negative) Urine RBC (0-5) /hpf Urine WBC (0-5) /hpf Ur Squamous Epith Cells (0-4) /hpf Urine Mucus (None) /hpf 05/06/24 Range/Units 05:45 WBC (3.8-10.6) k/uL RBC (3.80-5.40) m/uL Hgb (11.4-16.0) gm/dL Hct (34.0-46.0) % MCV (80.0-100.0) fL MCH (25.0-35.0) pg MCHC (31.0-37.0) g/dL RDW (11.5-15.5) % Plt Count (150-450) k/uL MPV Neutrophils % % Lymphocytes % % Monocytes % % Eosinophils % % Basophils % % Neutrophils # (1.3-7.7) k/uL Lymphocytes # (1.0-4.8) k/uL Monocytes # (0-1.0) k/uL Eosinophils # (0-0.7) k/uL Basophils # (0-0.2) k/uL PT (10.0-12.5) sec INR (<1.2) Sodium (137-145) mmol/L Potassium (3.5-5.1) mmol/L Chloride (98-107) mmol/L Carbon Dioxide (22-30) mmol/L Anion Gap mmol/L BUN (7-17) mg/dL Creatinine (0.52-1.04) mg/dL Est GFR (CKD-EPI)AfAm (>60 ml/min/1.73 sqM) Est GFR (CKD-EPI)NonAf (>60 ml/min/1.73 sqM) Glucose (74-99) mg/dL Uric Acid (3.7-7.4) mg/dL Calcium (8.4-10.2) mg/dL Total Bilirubin (0.2-1.3) mg/dL AST (14-36) U/L ALT (4-34) U/L Alkaline Phosphatase (38-126) U/L Lactate Dehydrogenase (120-246) U/L NT-Pro-B Natriuret Pep pg/mL Total Protein (6.3-8.2) g/dL Albumin (3.5-5.0) g/dL Urine Color Colorless Urine Appearance Cloudy H (Clear) Urine pH 6.0 (5.0-8.0) Ur Specific [place] 1.016 (1.001-1.035) Urine Protein Negative (Negative) Urine Glucose (UA) Negative (Negative) Urine Ketones Negative (Negative) Urine Blood Large H (Negative) Urine Nitrite Negative (Negative) Urine Bilirubin Negative (Negative) Urine Urobilinogen <2.0 (<2.0) mg/dL Ur Leukocyte Esterase Large H (Negative) Urine RBC 5 (0-5) /hpf Urine WBC 111 H (0-5) /hpf Ur Squamous Epith Cells 12 H (0-4) /hpf Urine Mucus Rare H (None) /hpf Disposition Clinical Impression: Swelling of lower extremity Disposition: HOME SELF-CARE Condition: Stable Instructions (If sedation given, give patient instructions): Leg Edema (ED) Additional Instructions: Please keep your legs elevated. Wear compression stockings. Follow-up with your primary care doctor. Return to the emergency department for any new or worsening symptoms Is patient prescribed a controlled substance at d/c from ED?: No Referrals: Angel Aranda MD [Primary Care Provider] - 1-2 days Time of Disposition: 06:46
[2024-05-06 07:05] VITALS: BP 118/83; PULSE 75; TEMP 98.2
--- NOTE | 2024-05-06 07:53 | XR ---
EXAMINATION TYPE: XR pelvis AP view DATE OF EXAM: 05/06/2024 COMPARISON: None HISTORY: Lower extremity edema TECHNIQUE: AP pelvis FINDINGS: Femoral heads articulate with the acetabulum. Symphysis pubis and sacroiliac joints are nor mal. No acute fractures are evident. Normal bowel gas is present. IMPRESSION: 1. Unremarkable AP pelvis
== END 2024-05-06 07:06 | disposition home or self-care (01) ==
LOC: EC 03:22
DX: M79.89 Other specified soft tissue disorders (principal); Z91.010 Allergy to peanuts; Z91.040 Latex allergy status; Z91.013 Allergy to seafood
CPT/HCPCS: 36415; 72170; 80053; 81001; 83615; 83880; 84550; 85025; 85610; 87086; 99284

== ENCOUNTER 2024-10-02 00:21 | Emergency (ER) | payer OTHER ==
[2024-10-02 02:05] LABS: Appearance,Urine Cloudy (Clear); Bacteria,Urine Rare /hpf; Bilirubin,Urine Negative (Negative); Blood,Urine Small (Negative); Budding Yeast,Urine Rare /hpf; Color,Urine Yellow; Glucose,Urine (UA) Negative (Negative); Ketones,Urine Negative (Negative); Leukocyte Esterase,Urine Large (Negative); Mucus,Urine Few /hpf; Nitrite,Urine Negative (Negative); Protein,Urine Trace (Negative); RBC,Urine 35 /hpf (0-5); Specific Gravity,Urine 1.032 (1.001-1.035); Squamous Epithelial Cell,Urine 10 /hpf (0-4); Urobilinogen,Urine <2.0 mg/dL (<2.0); WBC,Urine 53 /hpf (0-5)
[2024-10-02] MEDS: cefTRIAXone IN SWFI 1,000 MG/10 ML SYRINGE IVP STA (02:44)
[2024-10-02] MEDS: SODIUM CHLORIDE 0.9% 1,000 ML IV ONE (02:44)
[2024-10-02 03:08] LABS: ALT 16 U/L (4-34); AST 47 U/L (14-36); African American GFR (CKD) >90 (>60 ml/min/1.73 sqM); Albumin 4.3 g/dL (3.5-5.0); Alkaline Phosphatase 66 U/L (38-126); Anion Gap 4 mmol/L; Blood Urea Nitrogen 13 mg/dL (7-17); Carbon Dioxide 20 mmol/L (22-30); Chloride 111 mmol/L (98-107); Glucose 115 mg/dL (74-99); Non-African American GFR(CKD) >90 (>60 ml/min/1.73 sqM); Sodium 135 mmol/L (137-145); Total Bilirubin 1.2 mg/dL (0.2-1.3); Total Protein 7.4 g/dL (6.3-8.2)
[2024-10-02 03:25] LABS: HCG,Quantitative Serum 273.1 mIU/mL
[2024-10-02 03:49] LABS: Basophils % (A) 0 %; Eosinophils # (A) 0.2 k/uL (0-0.7); Eosinophils % (A) 3 %; HCT 33.5 % (34.0-46.0); HGB 10.8 gm/dL (11.4-16.0); Lymphocytes # (A) 2.3 k/uL (1.0-4.8); Lymphocytes % (A) 35 %; MCH 27.3 pg (25.0-35.0); MCHC 32.3 g/dL (31.0-37.0); MCV 84.5 fL (80.0-100.0); Monocytes # (A) 0.3 k/uL (0-1.0); Monocytes % (A) 5 %; Neutrophils # (A) 3.7 k/uL (1.3-7.7); Neutrophils % (A) 56 %; Platelet Count 316 k/uL (150-450); RBC 3.97 m/uL (3.80-5.40); WBC 6.6 k/uL (3.8-10.6)
--- NOTE | 2024-10-02 04:53 | ED ---
Female Urogenital HPI - General Source: patient Mode of arrival: ambulatory Limitations: no limitations <Marshall Rivera - Last Filed: 10/02/24 16:37> <Carlo Johnson - Last Filed: 10/04/24 05:26> - General Chief complaint: Urogenital Stated complaint: Abd pain- , possible uti Time Seen by Provider: 10/02/24 00:38 - History of Present Illness Initial comments: 34-year-old female presented with chief complaint of UTI and possible . Patient reports discomfort with urination. She also reports some left-sided pelvic pain. She had a positive urine test at home yesterday. Last menstrual cycle was at the beginning of August. No fevers or chills. No flank pain. No nausea or vomiting. No vaginal bleeding. (Marshall Rivera) - Related Data Previous Rx's Medication Instructions Recorded Cephalexin [Keflex] 500 mg PO Q12HR 7 Days #14 cap 10/02/24 Allergies Allergy/AdvReac Type Severity Reaction Status Date / Time Latex, Natural Rubber Allergy Swelling Verified 10/03/24 14:34 peanut Allergy Swelling Verified 10/03/24 14:34 shellfish derived [Shellfish] Allergy Swelling Verified 10/03/24 14:34 Review of Systems ROS Other: All systems not noted in ROS Statement are negative. <Marshall Rivera - Last Filed: 10/02/24 16:37> ROS Other: All systems not noted in ROS Statement are negative. <Carlo Johnson - Last Filed: 10/04/24 05:26> ROS Statement: Those systems with pertinent positive or pertinent negative responses have been documented in the HPI. Past Medical History Past Medical History: No Reported History History of Any Multi-Drug Resistant Organisms: None Reported Additional Past Surgical History / Comment(s): D&C Past Anesthesia/Blood Transfusion Reactions: No Reported Reaction Past Psychological History: No Psychological Hx Reported Smoking Status: Never smoker Past Alcohol Use History: None Reported Past Drug Use History: None Reported - Past Family History Mother Family Medical History: Diabetes Mellitus Additional Family Medical History / Comment(s): Reported that runs in family; grandparents have <Marshall Rivera - Last Filed: 10/02/24 16:37> General Exam Limitations: no limitations General appearance: alert, in no apparent distress Head exam: Present: atraumatic, normocephalic, normal inspection Eye exam: Present: normal appearance, EOMI Neck exam: Present: normal inspection. Absent: meningismus Respiratory exam: Present: normal lung sounds bilaterally. Absent: respiratory distress, wheezes, rales, rhonchi, stridor Cardiovascular Exam: Present: regular rate, normal rhythm, normal heart sounds. Absent: systolic murmur, diastolic murmur, rubs, gallop, clicks GI/Abdominal exam: Present: soft. Absent: distended, tenderness, guarding, rebound, rigid Neurological exam: Present: alert, oriented X3 Psychiatric exam: Present: normal affect, normal mood Skin exam: Present: warm, dry, normal color <Marshall Rivera - Last Filed: 10/02/24 16:37> Course Vital Signs 10/02/24 10/02/24 10/02/24 00:28 03:31 06:05 Temperature 98.5 F 98.4 F Pulse Rate 103 H 106 H 98 Respiratory 20 20 18 Rate Blood Pressure 116/86 126/82 128/86 O2 Sat by Pulse 98 97 97 Oximetry Medical Decision Making - Lab Data Result diagrams: 10/02/24 03:35 10/02/24 02:47 <Marshall Rivera - Last Filed: 10/02/24 16:37> - Lab Data Result diagrams: 10/02/24 03:35 10/02/24 02:47 <Carlo Johnson - Last Filed: 10/04/24 05:26> - Medical Decision Making Was pt. sent in by a medical professional or institution (Dr. PA, DEVELOPMENT ENG, urgent care, hospital, or retirement...) When possible be specific @ -[No] Did you speak to anyone other than the patient for history (EMS, parent, family, police, friend...)? What history was obtained from this source @ -[No] Did you review nursing and triage notes (agree or disagree)? Why? @ -[I reviewed and agree with nursing and triage notes] Were old charts reviewed (outside hosp., previous admission, EMS record, old EKG, old radiological studies, urgent care reports/EKG's, retirement records)? Report findings @ -[No old charts were reviewed] Differential Diagnosis (chest pain, altered mental status, abdominal pain women, abdominal pain men, vaginal bleeding, weakness, fever, dyspnea, syncope, hea dache, dizziness, GI bleed, back pain, seizure, CVA, palpatations, mental health, musculoskeletal)? @ -[facility] Differential Abdominal Pain Women: Appendicitis, Cholecystitis, diverticulosis, ischemic bowel, pancreatitis, hepatitis, UTI, gastroenteritis, AAA, incarcerated hernia, bowel obstruction, constipation, inflammatory bowel, hepatitis, peptic ulcer disease, splenic infarction, perforated viscus, vulvitis, ovarian torsion, PID, kidney stone, placenta abruption... This is not meant to be an all-inclusive list EKG interpreted by me (3pts min.). @ -[As above] X-rays interpreted by me (1pt min.). @ -[None done] CT interpreted by me (1pt min.). @ -[None done] U/S interpreted by me (1pt. min.). @ -[None done] What testing was considered but not performed or refused? (CT, X-rays, U/S, lab s)? Why? @ -[None] What meds were considered but not given or refused? Why? @ -[None] Did you discuss the management of the patient with other professionals (professionals i.e. , PA, DEVELOPMENT ENG, lab, RT, psych nurse, social security assessor, agricultural labor camp manager, teacher, armed security officer, case finisher)? Give summary @ -[No] Was smoking cessation discussed for >3mins.? @ -[No] Was critical care preformed (if so, how long)? @ -[No] Were there social determinants of health that impacted care today? How? (Homelessness, low income, unemployed, alcoholism, drug addiction, transportation, low edu. Level, literacy, decrease access to med. care, residential, rehab)? @ -[No] Was there de-escalation of care discussed even if they declined (Discuss DNR or withdrawal of care, Hospice)? DNR status @ -[No] What co-morbidities impacted this encounter? (DM, HTN, Smoking, COPD, CAD, Cancer, CVA, ARF, Chemo, Hep., AIDS, mental health diagnosis, sleep apnea, morbid obesity)? @ -[None] Was patient admitted / discharged? Hospital course, mention meds given and route, prescriptions, significant lab abnormalities, going to OR and other pertinent info. @ -34-year-old female presenting with chief complaint of possible UTI and positive test at home. She is having some pelvic pain with no vaginal bleeding. History and physical examination are conducted. Urine shows evidence of UTI with large leukocytes and small blood, patient is treated with 1 g of Rocephin. Urine hCG is positive. hCG quantitative is 273.1. Her LMP was at the beginning of August. Ultrasound is obtained and report is pending. Patient is signed out to my attending Dr. Carnes for further management and disposition pending ultrasound results Undiagnosed new problem with uncertain prognosis? @ -[No] Drug Therapy requiring intensive monitoring for toxicity (Heparin, Nitro, Insulin, Cardizem)? @ -[No] Were any procedures done? @ -[No] Diagnosis/symptom? @ -[default] Acute, or Chronic, or Acute on Chronic? @ -[default] Uncomplicated (without systemic symptoms) or Complicated (systemic symptoms)? @ -[default] Side effects of treatment? @ -[No] Exacerbation, Progression, or Severe Exacerbation? @ -[No] Poses a threat to life or bodily function? How? (Chest pain, [place], [place], pneumonia, PE, COPD, DKA, ARF, appy, cholecystitis, CVA, Diverticulitis, Homicidal, Suicidal, threat to staff... and all critical care pts) @ -[No] (Marshall Rivera) I reviewed the results with the patient, and discussed in detail the follow-up plan and the return parameters. (Carlo Johnson) - Lab Data Lab Results 10/02/24 10/02/24 10/02/24 Range/Units 01:23 01:23 02:47 WBC (3.8-10.6) k/uL RBC (3.80-5.40) m/uL Hgb (11.4-16.0) gm/dL Hct (34.0-46.0) % MCV (80.0-100.0) fL MCH (25.0-35.0) pg MCHC (31.0-37.0) g/dL RDW (11.5-15.5) % Plt Count (150-450) k/uL MPV Neutrophils % % Lymphocytes % % Monocytes % % Eosinophils % % Basophils % % Neutrophils # (1.3-7.7) k/uL Lymphocytes # (1.0-4.8) k/uL Monocytes # (0-1.0) k/uL Eosinophils # (0-0.7) k/uL Basophils # (0-0.2) k/uL Sodium 135 L (137-145) mmol/L Potassium (3.5-5.1) mmol/L Chloride 111 H (98-107) mmol/L Carbon Dioxide 20 L (22-30) mmol/L Anion Gap 4 mmol/L BUN 13 (7-17) mg/dL Creatinine 0.66 (0.52-1.04) mg/dL Est GFR (CKD-EPI)AfAm >90 (>60 ml/min/1.73 sqM) Est GFR (CKD-EPI)NonAf >90 (>60 ml/min/1.73 sqM) Glucose 115 H (74-99) mg/dL Calcium 9.0 (8.4-10.2) mg/dL Total Bilirubin 1.2 (0.2-1.3) mg/dL AST 47 H (14-36) U/L ALT 16 (4-34) U/L Alkaline Phosphatase 66 (38-126) U/L Total Protein 7.4 (6.3-8.2) g/dL Albumin 4.3 (3.5-5.0) g/dL HCG, Quant 273.1 mIU/mL Urine Color Yellow Urine Appearance Cloudy H (Clear) Urine pH 6.0 (5.0-8.0) Ur Specific [place] 1.032 (1.001-1.035) Urine Protein Trace H (Negative) Urine Glucose (UA) Negative (Negative) Urine Ketones Negative (Negative) Urine Blood Small H (Negative) Urine Nitrite Negative (Negative) Urine Bilirubin Negative (Negative) Urine Urobilinogen <2.0 (<2.0) mg/dL Ur Leukocyte Esterase Large H (Negative) Urine RBC 35 H (0-5) /hpf Urine WBC 53 H (0-5) /hpf Urine WBC Clumps Rare H (None) /hpf Ur Squamous Epith Cells 10 H (0-4) /hpf Urine Bacteria Rare H (None) /hpf Urine Mucus Few H (None) /hpf Urine Yeast (Budding) Rare H (None) /hpf Urine HCG, Qual Detected (Not Detectd) 12/08/24 Range/Units 03:35 WBC 6.6 (3.8-10.6) k/uL RBC 3.97 (3.80-5.40) m/uL Hgb 10.8 L (11.4-16.0) gm/dL Hct 33.5 L (34.0-46.0) % MCV 84.5 (80.0-100.0) fL MCH 27.3 (25.0-35.0) pg MCHC 32.3 (31.0-37.0) g/dL RDW 14.0 (11.5-15.5) % Plt Count 316 (150-450) k/uL MPV 7.0 Neutrophils % 56 % Lymphocytes % 35 % Monocytes % 5 % Eosinophils % 3 % Basophils % 0 % Neutrophils # 3.7 (1.3-7.7) k/uL Lymphocytes # 2.3 (1.0-4.8) k/uL Monocytes # 0.3 (0-1.0) k/uL Eosinophils # 0.2 (0-0.7) k/uL Basophils # 0.0 (0-0.2) k/uL Sodium (137-145) mmol/L Potassium (3.5-5.1) mmol/L Chloride (98-107) mmol/L Carbon Dioxide (22-30) mmol/L Anion Gap mmol/L BUN (7-17) mg/dL Creatinine (0.52-1.04) mg/dL Est GFR (CKD-EPI)AfAm (>60 ml/min/1.73 sqM) Est GFR (CKD-EPI)NonAf (>60 ml/min/1.73 sqM) Glucose (74-99) mg/dL Calcium (8.4-10.2) mg/dL Total Bilirubin (0.2-1.3) mg/dL AST (14-36) U/L ALT (4-34) U/L Alkaline Phosphatase (38-126) U/L Total Protein (6.3-8.2) g/dL Albumin (3.5-5.0) g/dL HCG, Quant mIU/mL Urine Color Urine Appearance (Clear) Urine pH (5.0-8.0) Ur Specific [place] (1.001-1.035) Urine Protein (Negative) Urine Glucose (UA) (Negative) Urine Ketones (Negative) Urine Blood (Negative) Urine Nitrite (Negative) Urine Bilirubin (Negative) Urine Urobilinogen (<2.0) mg/dL Ur Leukocyte Esterase (Negative) Urine RBC (0-5) /hpf Urine WBC (0-5) /hpf Urine WBC Clumps (None) /hpf Ur Squamous Epith Cells (0-4) /hpf Urine Bacteria (None) /hpf Urine Mucus (None) /hpf Urine Yeast (Budding) (None) /hpf Urine HCG, Qual (Not Detectd) Disposition <Marshall Rivera - Last Filed: 10/02/24 16:37> Is patient prescribed a controlled substance at d/c from ED?: No <Carlo Johnson - Last Filed: 10/04/24 05:26> Clinical Impression: , Urinary tract infection Disposition: HOME SELF-CARE Condition: Good Instructions (If sedation given, give patient instructions): Urinary Tract Infe ction in Women (ED) Additional Instructions: As we discussed, you must follow-up and have your hCG level rechecked in 2 days and probably have ultrasound, to ensure that there is not an ectopic or tubal . If you are having symptoms of pain, bleeding or any other symptoms check back as soon as possible. Prescriptions: Cephalexin [Keflex] 500 mg PO Q12HR 7 Days #14 cap Referrals: Jerome Riggs MD [Primary Care Provider] - 1-2 days
--- NOTE | 2024-10-02 04:59 | US ---
EXAM: US First Trimester , Transabdominal CLINICAL HISTORY: pain TECHNIQUE: Real-time transabdominal obstetrical ultrasound of the maternal pelvis and a first trimester with image documentation. COMPARISON: No relevant prior studies available. FINDINGS: Gestation: No intrauterine gestational sac identified. Uterus/cervix: Unremarkable. No myometrial mass. Ovaries: Right ovary within normal limits. Mildly complex 2 cm cyst in the left ovary. Free fluid: No free fluid. No adnexal mass. IMPRESSION: No intrauterine gestational sac. No adnexal mass or free fluid.
[2024-10-02 06:14] VITALS: BP 128/86; PULSE 98; RESP 18; TEMP 98.4
== END 2024-10-02 06:05 | disposition home or self-care (01) ==
LOC: EC 00:21
DX: O23.41 Unspecified infection of urinary tract in pregnancy, first trimester (principal); Z91.040 Latex allergy status; Z91.010 Allergy to peanuts; Z91.013 Allergy to seafood; Z3A.00 Weeks of gestation of pregnancy not specified
CPT/HCPCS: 36415; 80053; 85025; 81001; 81025; 84702; 87086; 76801; 99284; 96374; 96361; J0696

== ENCOUNTER 2024-10-03 14:20 | Emergency (ER) | payer OTHER ==
[2024-10-03 14:37] VITALS: RESP 18; TEMP 98.6
--- NOTE | 2024-10-03 15:44 | ED ---
Recheck HPI - General Chief Complaint: Recheck/Abnormal Lab/Rx Stated Complaint: Recheck-abd pain preg(not sure how far) Time Seen by Provider: 10/03/24 14:38 Source: patient, RN notes reviewed Mode of arrival: ambulatory Limitations: no limitations - History of Present Illness Initial Comments: This is a 54-year-old female, [id number], presented to emergency room at unknown gestational age with abdominal pain in early . Patient states that she was seen in the emergency department approximately 1 day ago where she underwent laboratory testing and ultrasound was inconclusive of intrauterine gestation. Patient states that she was instructed to report back to the emergency department for repeat ultrasound and beta-hCG level. Patient states she has been having mild dysuria and is discharged with Keflex for urinary tract infection however has not started this antibiotics. She denies vaginal bleeding, right upper quadrant abdominal pain. - Related Data Previous Rx's Medication Instructions Recorded Cephalexin [Keflex] 500 mg PO Q12HR 7 Days #14 cap 10/02/24 Allergies Allergy/AdvReac Type Severity Reaction Status Date / Time Latex, Natural Rubber Allergy Swelling Verified 10/03/24 14:34 peanut Allergy Swelling Verified 10/03/24 14:34 shellfish derived [Shellfish] Allergy Swelling Verified 10/03/24 14:34 Review of Systems ROS Statement: Those systems with pertinent positive or pertinent negative responses have been documented in the HPI. ROS Other: All systems not noted in ROS Statement are negative. Past Medical History Past Medical History: No Reported History History of Any Multi-Drug Resistant Organisms: None Reported Additional Past Surgical History / Comment(s): D&C Past Anesthesia/Blood Transfusion Reactions: No Reported Reaction Past Psychological History: No Psychological Hx Reported Smoking Status: Never smoker Past Alcohol Use History: Occasional Past Drug Use History: None Reported - Past Family History Mother Family Medical History: Diabetes Mellitus Additional Family Medical History / Comment(s): Reported that runs in family; grandparents have General Exam Limitations: no limitations General appearance: alert, in no apparent distress Eye exam: Present: normal appearance, PERRL, EOMI. Absent: scleral icterus, conjunctival injection, periorbital swelling Neck exam: Present: normal inspection. Absent: tenderness, meningismus, ly mphadenopathy Respiratory exam: Present: normal lung sounds bilaterally. Absent: respiratory distress, wheezes, rales, rhonchi, stridor Cardiovascular Exam: Present: regular rate, normal rhythm, normal heart sounds. Absent: systolic murmur, diastolic murmur, rubs, gallop, clicks GI/Abdominal exam: Present: soft, tenderness (suprapubic), normal bowel sounds. Absent: distended, guarding, rebound, rigid Extremities exam: Present: normal inspection, full ROM, normal capillary refill. Absent: tenderness, pedal edema, joint swelling, calf tenderness Back exam: Present: normal inspection Skin exam: Present: warm, dry, intact, normal color. Absent: rash Course Vital Signs 10/03/24 10/03/24 14:34 17:35 Temperature 98.6 F Pulse Rate 92 78 Respiratory 18 18 Rate Blood Pressure 116/74 122/74 O2 Sat by Pulse 100 97 Oximetry Medical Decision Making - Medical Decision Making Was pt. sent in by a medical professional or institution (, PA, AGRI BUSINESS AGENT, urgent care, hospital, or custodial...) When possible be specific @ -No Did you speak to anyone other than the patient for history (EMS, parent, family, police, friend...)? What history was obtained from this source @ -No Did you review nursing and triage notes (agree or disagree)? Why? @ -I reviewed and agree with nursing and triage notes Were old charts reviewed (outside hosp., previous admission, EMS record, old EKG, old radiological studies, urgent care reports/EKG's, custodial records)? Report findings @ -Reviewed patient's visit note from 10/02/2024, positive hCG with no intrauterine identified on ultrasound Differential Diagnosis (chest pain, altered mental status, abdominal pain women, abdominal pain men, vaginal bleeding, weakness, fever, dyspnea, syncope, headache, dizziness, GI bleed, back pain, seizure, CVA, palpatations, mental health, musculoskeletal)? @ -Differential Abdominal Pain Women: Appendicitis, Cholecystitis, diverticulosis, ischemic bowel, pancreatitis, hepatitis, UTI, gastroenteritis, AAA, incarcerated hernia, bowel obstruction, constipation, inflammatory bowel, hepatitis, peptic ulcer disease, splenic infarction, perforated viscus, vulvitis, ovarian torsion, PID, kidney stone, placenta abruption, this is not meant to be an all-inclusive list EKG interpreted by me (3pts min.). @ -None X-rays interpreted by me (1pt min.). @ -None done CT interpreted by me (1pt min.). @ -None done U/S interpreted by me (1pt. min.). @ -None done What testing was considered but not performed or refused? (CT, X-rays, U/S, labs)? Why? @ -Ultrasound was considered but deferred at this time. Patient had ultrasound completed on 10/02/2024 and always advised by radiology and ultrasound that repeat ultrasound at this time we will be inconclusive. Patient is in agreement with deferring ultrasound imaging at this time as well. What meds were considered but not given or refused? Why? @ -None Did you discuss the management of the patient with other professionals (professionals i.e. , PA, AGRI BUSINESS AGENT, lab, RT, psych nurse, pediatric social worker, philosophy instructor, teacher, juvenile justice officer, case making machine operator)? Give summary @ -No Was smoking cessation discussed for >3mins.? @ -No Was critical care preformed (if so, how long)? @ -No Were there social determinants of health that impacted care today? How? (Homelessness, low income, unemployed, alcoholism, drug addiction, transportation, low edu. Level, literacy, decrease access to med. care, residential, rehab)? @ -No Was there de-escalation of care discussed even if they declined (Discuss DNR or withdrawal of care, Hospice)? DNR status @ -No What co-morbidities impacted this encounter? (DM, HTN, Smoking, COPD, CAD, Cancer, CVA, ARF, Chemo, Hep., AIDS, mental health diagnosis, sleep apnea, morbid obesity)? @ -None Was patient admitted / discharged? Hospital course, mention meds given and route, prescriptions, significant lab abnormalities, going to OR and other pertinent info. @ -Discharge. 34-year-old female with lower abdominal pain and previous positive hCG. On my evaluation the patient is asked to complain no signs acute distress. Does not have mild suprapubic tenderness to palpation. Patient was offered pain medication has declined this time. Ultrasound imaging is deferred as she underwent ultrasound imaging on 10/02/2024 instructed that patient repeat ultrasound approximately 7 days. hCG level has increased to 682. Urinalysis questionable for infection however patient has a prescription at any pharmacy for Keflex with previous diagnosis of urinary tract infection. 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 Recommend that she follow-up with OB outpatient for further evaluation. All questions answered at bedside answered return parameters margarita with the patient she is verbalized understanding. Discussed with Dr. Melo Undiagnosed new problem with uncertain prognosis? @ -No Drug Therapy requiring intensive monitoring for toxicity (Heparin, Nitro, Insulin, Cardizem)? @ -No Were any procedures done? @ -No Diagnosis/symptom? @ -positive hcg, pelvic pain Acute, or Chronic, or Acute on Chronic? @ -Acute Uncomplicated (without systemic symptoms) or Complicated (systemic symptoms)? @ -uncomplicated Side effects of treatment? @ -No Exacerbation, Progression, or Severe Exacerbation? @ -No Poses a threat to life or bodily function? How? (Chest pain, [place], [place], pneumonia, PE, COPD, DKA, ARF, appy, cholecystitis, CVA, Diverticulitis, Homicidal, Suicidal, threat to staff... and all critical care pts) @ -No - Lab Data Result diagrams: 10/03/24 16:00 10/03/24 16:00 Lab Results 10/03/24 10/03/24 10/03/24 Range/Units 16:00 16:00 16:17 WBC 6.3 (3.8-10.6) k/uL RBC 4.34 (3.80-5.40) m/uL Hgb 11.9 (11.4-16.0) gm/dL Hct 37.1 (34.0-46.0) % MCV 85.4 (80.0-100.0) fL MCH 27.3 (25.0-35.0) pg MCHC 32.0 (31.0-37.0) g/dL RDW 14.1 (11.5-15.5) % Plt Count 339 (150-450) k/uL MPV 6.8 Neutrophils % 68 % Lymphocytes % 24 % Monocytes % 3 % Eosinophils % 4 % Basophils % 0 % Neutrophils # 4.3 (1.3-7.7) k/uL Lymphocytes # 1.5 (1.0-4.8) k/uL Monocytes # 0.2 (0-1.0) k/uL Eosinophils # 0.3 (0-0.7) k/uL Basophils # 0.0 (0-0.2) k/uL Sodium 137 (137-145) mmol/L Potassium 3.9 (3.5-5.1) mmol/L Chloride 111 H (98-107) mmol/L Carbon Dioxide 23 (22-30) mmol/L Anion Gap 3 mmol/L BUN 6 L (7-17) mg/dL Creatinine 0.65 (0.52-1.04) mg/dL Est GFR (CKD-EPI)AfAm >90 (>60 ml/min/1.73 sqM) Est GFR (CKD-EPI)NonAf >90 (>60 ml/min/1.73 sqM) Glucose 105 H (74-99) mg/dL Calcium 8.8 (8.4-10.2) mg/dL Total Bilirubin 0.4 (0.2-1.3) mg/dL AST 15 (14-36) U/L ALT 12 (4-34) U/L Alkaline Phosphatase 80 (38-126) U/L Total Protein 6.6 (6.3-8.2) g/dL Albumin 4.1 (3.5-5.0) g/dL HCG, Quant 682.8 mIU/mL Urine Color Colorless Urine Appearance Cloudy H (Clear) Urine pH 6.0 (5.0-8.0) Ur Specific [place] 1.011 (1.001-1.035) Urine Protein Negative (Negative) Urine Glucose (UA) Negative (Negative) Urine Ketones Negative (Negative) Urine Blood Negative (Negative) Urine Nitrite Negative (Negative) Urine Bilirubin Negative (Negative) Urine Urobilinogen <2.0 (<2.0) mg/dL Ur Leukocyte Esterase Large H (Negative) Urine RBC 6 H (0-5) /hpf Urine WBC 42 H (0-5) /hpf Ur Squamous Epith Cells 16 H (0-4) /hpf Urine Bacteria Rare H (None) /hpf Urine Mucus Rare H (None) /hpf Disposition Clinical Impression: at early stage, Elevated serum hCG Disposition: HOME SELF-CARE Condition: Good Additional Instructions: Please return to the Emergency Department if symptoms worsen or any other co ncerns. Is patient prescribed a controlled substance at d/c from ED?: No Referrals: Jerome Riggs MD [Primary Care Provider] - 1-2 days Time of Disposition: 16:56
[2024-10-03 16:06] LABS: Basophils % (A) 0 %; Eosinophils # (A) 0.3 k/uL (0-0.7); Eosinophils % (A) 4 %; HCT 37.1 % (34.0-46.0); HGB 11.9 gm/dL (11.4-16.0); Lymphocytes # (A) 1.5 k/uL (1.0-4.8); Lymphocytes % (A) 24 %; MCH 27.3 pg (25.0-35.0); MCV 85.4 fL (80.0-100.0); Mean Platelet Volume 6.8; Monocytes # (A) 0.2 k/uL (0-1.0); Monocytes % (A) 3 %; Neutrophils # (A) 4.3 k/uL (1.3-7.7); Neutrophils % (A) 68 %; Platelet Count 339 k/uL (150-450); RBC 4.34 m/uL (3.80-5.40); RDW 14.1 % (11.5-15.5); WBC 6.3 k/uL (3.8-10.6)
[2024-10-03 16:19] LABS: ALT 12 U/L (4-34); AST 15 U/L (14-36); African American GFR (CKD) >90 (>60 ml/min/1.73 sqM); Albumin 4.1 g/dL (3.5-5.0); Alkaline Phosphatase 80 U/L (38-126); Anion Gap 3 mmol/L; Blood Urea Nitrogen 6 mg/dL (7-17); Calcium 8.8 mg/dL (8.4-10.2); Carbon Dioxide 23 mmol/L (22-30); Chloride 111 mmol/L (98-107); Glucose 105 mg/dL (74-99); Non-African American GFR(CKD) >90 (>60 ml/min/1.73 sqM); Potassium 3.9 mmol/L (3.5-5.1); Sodium 137 mmol/L (137-145); Total Bilirubin 0.4 mg/dL (0.2-1.3); Total Protein 6.6 g/dL (6.3-8.2)
[2024-10-03 16:35] LABS: HCG,Quantitative Serum 682.8 mIU/mL
[2024-10-03 16:39] LABS: Appearance,Urine Cloudy (Clear); Bacteria,Urine Rare /hpf; Bilirubin,Urine Negative (Negative); Blood,Urine Negative (Negative); Color,Urine Colorless; Glucose,Urine (UA) Negative (Negative); Ketones,Urine Negative (Negative); Leukocyte Esterase,Urine Large (Negative); Mucus,Urine Rare /hpf; Nitrite,Urine Negative (Negative); Protein,Urine Negative (Negative); RBC,Urine 6 /hpf (0-5); Specific Gravity,Urine 1.011 (1.001-1.035); Squamous Epithelial Cell,Urine 16 /hpf (0-4); Urobilinogen,Urine <2.0 mg/dL (<2.0); WBC,Urine 42 /hpf (0-5)
[2024-10-03 17:36] VITALS: BP 122/74; PULSE 78
== END 2024-10-03 17:36 | disposition home or self-care (01) ==
LOC: EC 14:20
DX: O02.81 Inappropriate change in quantitative human chorionic gonadotropin (hCG) in early pregnancy (principal); Z91.040 Latex allergy status; Z91.013 Allergy to seafood; Z91.010 Allergy to peanuts; Z3A.01 Less than 8 weeks gestation of pregnancy
CPT/HCPCS: 36415; 80053; 81001; 84702; 85025; 99284

== ENCOUNTER 2024-12-16 19:47 | Emergency (ER) | payer OTHER ==
[2024-12-16] MEDS: METOCLOPRAMIDE 5 MG/ML 2 ML VIAL IVP STA (21:33)
[2024-12-16 21:34] LABS: Influenza A Detected (Not Detectd); Influenza B Not Detected (Not Detectd); RSV Not Detected (Not Detectd)
[2024-12-16] MEDS: DEXTROSE 5%-0.45% NACL 1,000 ML IV ONE (21:38)
[2024-12-16 21:58] LABS: Basophils % (A) 0 %; Eosinophils # (A) 0.1 k/uL (0-0.7); Eosinophils % (A) 3 %; HCT 36.3 % (34.0-46.0); HGB 12.5 gm/dL (11.4-16.0); Lymphocytes # (A) 1.1 k/uL (1.0-4.8); Lymphocytes % (A) 24 %; MCH 28.4 pg (25.0-35.0); MCHC 34.5 g/dL (31.0-37.0); MCV 82.4 fL (80.0-100.0); Mean Platelet Volume 7.2; Monocytes # (A) 0.3 k/uL (0-1.0); Monocytes % (A) 8 %; Neutrophils # (A) 2.9 k/uL (1.3-7.7); Neutrophils % (A) 64 %; Platelet Count 259 k/uL (150-450); RDW 12.9 % (11.5-15.5); WBC 4.5 k/uL (3.8-10.6)
[2024-12-16 22:11] LABS: ALT 9 U/L (4-34); AST 15 U/L (14-36); African American GFR (CKD) >90 (>60 ml/min/1.73 sqM); Albumin 3.7 g/dL (3.5-5.0); Alkaline Phosphatase 71 U/L (38-126); Amylase 55 U/L (30-110); Anion Gap 10 mmol/L; Blood Urea Nitrogen 3 mg/dL (7-17); C Reactive Protein 5.8 mg/dL (<1.0); Carbon Dioxide 21 mmol/L (22-30); Chloride 99 mmol/L (98-107); Glucose 97 mg/dL (74-99); Lipase 59 U/L (23-300); Non-African American GFR(CKD) >90 (>60 ml/min/1.73 sqM); Potassium 3.4 mmol/L (3.5-5.1); Sodium 130 mmol/L (137-145); Total Bilirubin 0.3 mg/dL (0.2-1.3); Total Protein 6.4 g/dL (6.3-8.2)
--- NOTE | 2024-12-16 23:14 | ED ---
General Adult HPI - General Chief complaint: Upper Respiratory Infection Stated complaint: Abnormal Labs-15 weeks preg Time Seen by Provider: 12/16/24 20:28 Source: patient Mode of arrival: ambulatory Limitations: no limitations - History of Present Illness Initial comments: This patient is a 34-year-old woman presenting with a constellation of symptoms including cough, congestion, nasal drainage. She also is having some bodyaches and low back pain. The patient denies trauma. Patient does note that she is . No abdominal pain. No vaginal discharge or bleeding. Onset/Timin -: days(s) Location: back Radiation: non-radiation Quality: aching Consistency: constant Improves with: none Worsens with: movement Associated Symptoms: cough, other (Congestion) - Related Data Previous Rx's Medication Instructions Recorded Cephalexin [Keflex] 500 mg PO Q12HR 7 Days #14 cap 10/02/24 Cefpodoxime Proxetil [Vantin] 200 mg PO Q12HR #14 tab 11/25/24 Cephalexin [Keflex] 500 mg PO Q8HR #21 cap 11/28/24 Doxylamine Succinate/Vit B6 1 tab PO BID PRN #30 tab 12/16/24 [Deni Perez 10-10 mg Tablet] Cromolyn Sodium [NasalCrom] 1 spray NASAL TID #26 ml 12/17/24 Allergies Allergy/AdvReac Type Severity Reaction Status Date / Time Latex, Natural Rubber Allergy Swelling Verified 12/16/24 20:08 peanut Allergy Swelling Verified 12/16/24 20:08 shellfish derived [Shellfish] Allergy Swelling Verified 12/16/24 20:08 Review of Systems ROS Statement: Those systems with pertinent positive or pertinent negative responses have been documented in the HPI. ROS Other: All systems not noted in ROS Statement are negative. Constitutional: Denies: fever, chills, weakness ENT: Reports: throat pain, congestion Respiratory: Reports: cough. Denies: dyspnea, wheezes Cardiovascular: Denies: chest pain, palpitations, edema Gastrointestinal: Denies: abdominal pain, nausea, vomiting, diarrhea Genitourinary: Denies: dysuria, hematuria, discharge, abnormal menses Musculoskeletal: Reports: as per HPI, back pain Skin: Denies: rash Neurological: Denies: headache, weakness Past Medical History Past Medical History: Syncope History of Any Multi-Drug Resistant Organisms: None Reported Additional Past Surgical History / Comment(s): D&C Past Anesthesia/Blood Transfusion Reactions: No Reported Reaction Past Psychological History: No Psychological Hx Reported Smoking Status: Never smoker Past Alcohol Use History: None Reported, Occasional Past Drug Use History: None Reported - Past Family History Mother Family Medical History: Diabetes Mellitus Additional Family Medical History / Comment(s): Reported that runs in family; grandparents have General Exam Limitations: no limitations General appearance: alert, in no apparent distress Head exam: Present: atraumatic, normocephalic Eye exam: Present: normal appearance. Absent: scleral icterus, conjunctival injection ENT exam: Present: normal oropharynx, mucous membranes moist Neck exam: Present: normal inspection, full ROM, lymphadenopathy. Absent: tenderness, meningismus Respiratory exam: Present: normal lung sounds bilaterally. Absent: respiratory distress, wheezes, rales, rhonchi, stridor, accessory muscle use Cardiovascular Exam: Present: regular rate, normal rhythm, normal heart sounds. Absent: systolic murmur, diastolic murmur, rubs, gallop GI/Abdominal exam: Present: soft. Absent: distended, tenderness, guarding, rebound, rigid, mass Extremities exam: Present: normal inspection, normal capillary refill. Absent: pedal edema, calf tenderness Back exam: Present: normal inspection. Absent: CVA tenderness (R), CVA tenderness (L) Neurological exam: Present: alert Skin exam: Present: warm, dry, intact, normal color. Absent: rash Course Vital Signs 12/16/24 12/17/24 20:02 00:59 Temperature 98.1 F 98.0 F Pulse Rate 104 H 63 Respiratory 20 16 Rate Blood Pressure 129/83 118/62 O2 Sat by Pulse 97 100 Oximetry Medical Decision Making - Medical Decision Making Was pt. sent in by a medical professional or institution (, PA, WINDOWS SYSTEMS ARCHITECT, urgent care, hospital, or jail...) When possible be specific @ -[No] Did you speak to anyone other than the patient for history (EMS, parent, family, police, friend...)? What history was obtained from this source @ -[No] Did you review nursing and triage notes (agree or disagree)? Why? @ -[I reviewed and agree with nursing and triage notes] Were old charts reviewed (outside hosp., previous admission, EMS record, old EKG, old radiological studies, urgent care reports/EKG's, jail records)? Report findings @ -[No old charts were reviewed] Differential Diagnosis (chest pain, altered mental status, abdominal pain women, abdominal pain men, vaginal bleeding, weakness, fever, dyspnea, syncope, headache, dizziness, GI bleed, back pain, seizure, CVA, palpatations, mental health, musculoskeletal)? @ -[Differential Musculoskeletal Muscular strain, contusion, ligament sprain, fracture, arthritis, septic arthritis, bursitis, cellulitis, muscle spasm, nerve compression, DVT, arterial occlusion, herpes zoster, electrolyte abnormality, tumor.... This is not meant to be in all inclusive list EKG interpreted by me (3pts min.). @ -[As above] X-rays interpreted by me (1pt min.). @ -[None done] CT interpreted by me (1pt min.). @ -[None done] U/S interpreted by me (1pt. min.). @ -[None done] What testing was considered but not performed or refused? (CT, X-rays, U/S, labs)? Why? @ -[None] What meds were considered but not given or refused? Why? @ -[None] Did you discuss the management of the patient with other professionals (professionals i.e. , PA, WINDOWS SYSTEMS ARCHITECT, lab, RT, psych nurse, health care social worker, interior design professional, teacher, chief administrative officer, child support case officer)? Give summary @ -[No] Was smoking cessation discussed for >3mins.? @ -[No] Was critical care preformed (if so, how long)? @ -[No] Were there social determinants of health that impacted care today? How? (Ho melessness, low income, unemployed, alcoholism, drug addiction, transportation, low edu. Level, literacy, decrease access to med. care, longterm, rehab)? @ -[No] Was there de-escalation of care discussed even if they declined (Discuss DNR or withdrawal of care, Hospice)? DNR status @ -[No] What co-morbidities impacted this encounter? (DM, HTN, Smoking, COPD, CAD, Cancer, CVA, ARF, Chemo, Hep., AIDS, mental health diagnosis, sleep apnea, morbid obesity)? @ -[None] Was patient admitted / discharged? Hospital course, mention meds given and route, prescriptions, significant lab abnormalities, going to OR and other pertinent info. @ -[Patient is 34-year-old woman in early presenting with constellation of symptoms and found to have influenza. Discussed the appropriate further care as well as return parameters. Patient is stable for outpatient treatment Undiagnosed new problem with uncertain prognosis? @ -[No] Drug Therapy requiring intensive monitoring for toxicity (Heparin, Nitro, Insulin, Cardizem)? @ -[No] Were any procedures done? @ -[No] Diagnosis/symptom? @ -[Acute influenza A Acute, or Chronic, or Acute on Chronic? @ -[Acute Uncomplicated (without systemic symptoms) or Complicated (systemic symptoms)? @ -[Uncomplicated Side effects of treatment? @ -[No] Exacerbation, Progression, or Severe Exacerbation? @ -[No] Poses a threat to life or bodily function? How? (Chest pain, [place], [place], pneumonia, PE, COPD, DKA, ARF, appy, cholecystitis, CVA, Diverticulitis, Homicidal, Suicidal, threat to staff... and all critical care pts) @ -[No] All treatments are based on ideal body weight as in ED triage - Lab Data Result diagrams: 12/16/24 21:45 12/16/24 21:45 Lab Results 12/16/24 12/16/24 12/16/24 Range/Units 20:51 21:45 21:45 WBC 4.5 (3.8-10.6) k/uL RBC 4.40 (3.80-5.40) m/uL Hgb 12.5 (11.4-16.0) gm/dL Hct 36.3 (34.0-46.0) % MCV 82.4 (80.0-100.0) fL MCH 28.4 (25.0-35.0) pg MCHC 34.5 (31.0-37.0) g/dL RDW 12.9 (11.5-15.5) % Plt Count 259 (150-450) k/uL MPV 7.2 Neutrophils % 64 % Lymphocytes % 24 % Monocytes % 8 % Eosinophils % 3 % Basophils % 0 % Neutrophils # 2.9 (1.3-7.7) k/uL Lymphocytes # 1.1 (1.0-4.8) k/uL Monocytes # 0.3 (0-1.0) k/uL Eosinophils # 0.1 (0-0.7) k/uL Basophils # 0.0 (0-0.2) k/uL Sodium 130 L (137-145) mmol/L Potassium 3.4 L (3.5-5.1) mmol/L Chloride 99 (98-107) mmol/L Carbon Dioxide 21 L (22-30) mmol/L Anion Gap 10 mmol/L BUN 3 L (7-17) mg/dL Creatinine 0.42 L (0.52-1.04) mg/dL Est GFR (CKD-EPI)AfAm >90 (>60 ml/min/1.73 sqM) Est GFR (CKD-EPI)NonAf >90 (>60 ml/min/1.73 sqM) Glucose 97 (74-99) mg/dL Plasma Lactic Acid Neil (0.7-2.0) mmol/L Calcium 9.0 (8.4-10.2) mg/dL Total Bilirubin 0.3 (0.2-1.3) mg/dL AST 15 (14-36) U/L ALT 9 (4-34) U/L Alkaline Phosphatase 71 (38-126) U/L C-Reactive Protein 5.8 H (<1.0) mg/dL Total Protein 6.4 (6.3-8.2) g/dL Albumin 3.7 (3.5-5.0) g/dL Amylase 55 (30-110) U/L Lipase 59 (23-300) U/L Influenza Type A (PCR) Detected A (Not Detectd) Influenza Type B (PCR) Not Detected (Not Detectd) RSV (PCR) Not Detected (Not Detectd) SARS-CoV-2 (PCR) Not Detected (Not Detectd) 12/16/24 Range/Units 21:45 WBC (3.8-10.6) k/uL RBC (3.80-5.40) m/uL Hgb (11.4-16.0) gm/dL Hct (34.0-46.0) % MCV (80.0-100.0) fL MCH (25.0-35.0) pg MCHC (31.0-37.0) g/dL RDW (11.5-15.5) % Plt Count (150-450) k/uL MPV Neutrophils % % Lymphocytes % % Monocytes % % Eosinophils % % Basophils % % Neutrophils # (1.3-7.7) k/uL Lymphocytes # (1.0-4.8) k/uL Monocytes # (0-1.0) k/uL Eosinophils # (0-0.7) k/uL Basophils # (0-0.2) k/uL Sodium (137-145) mmol/L Potassium (3.5-5.1) mmol/L Chloride (98-107) mmol/L Carbon Dioxide (22-30) mmol/L Anion Gap mmol/L BUN (7-17) mg/dL Creatinine (0.52-1.04) mg/dL Est GFR (CKD-EPI)AfAm (>60 ml/min/1.73 sqM) Est GFR (CKD-EPI)NonAf (>60 ml/min/1.73 sqM) Glucose (74-99) mg/dL Plasma Lactic Acid Neil 0.9 (0.7-2.0) mmol/L Calcium (8.4-10.2) mg/dL Total Bilirubin (0.2-1.3) mg/dL AST (14-36) U/L ALT (4-34) U/L Alkaline Phosphatase (38-126) U/L C-Reactive Protein (<1.0) mg/dL Total Protein (6.3-8.2) g/dL Albumin (3.5-5.0) g/dL Amylase (30-110) U/L Lipase (23-300) U/L Influenza Type A (PCR) (Not Detectd) Influenza Type B (PCR) (Not Detectd) RSV (PCR) (Not Detectd) SARS-CoV-2 (PCR) (Not Detectd) Disposition Clinical Impression: Influenza A Disposition: HOME SELF-CARE Condition: Good Instructions (If sedation given, give patient instructions): Influenza (DC) Prescriptions: Doxylamine Succinate/Vit B6 [Diclegis Dr 10-10 mg Tablet] 1 tab PO BID PRN #30 tab PRN Reason: Nausea Cromolyn Sodium [NasalCrom] 1 spray NASAL TID #26 ml Is patient prescribed a controlled substance at d/c from ED?: No Referrals: Jerome Riggs MD [Primary Care Provider] - 1-2 days
[2024-12-16] MEDS: SODIUM CHLORIDE 0.9% 1,000 ML IV ONE (23:46)
[2024-12-17 01:00] VITALS: BP 118/62; PULSE 63; RESP 16; TEMP 98
== END 2024-12-17 01:04 | disposition home or self-care (01) ==
LOC: EC 19:47
DX: O98.512 Other viral diseases complicating pregnancy, second trimester (principal); J10.1 Influenza due to other identified influenza virus with other respiratory manifestations; Z91.040 Latex allergy status; Z91.013 Allergy to seafood; Z91.010 Allergy to peanuts; Z3A.15 15 weeks gestation of pregnancy
CPT/HCPCS: 36415; 80053; 82150; 83605; 83690; 85025; 86140; 87636; 99283; 96374; 96361 ×2; J2765

== ENCOUNTER 2025-03-24 00:20 | Outpatient (CLI) | payer OTHER ==
[2025-03-24 01:40] LABS: Glucose,Whole Blood 107 mg/dL (70-110)
[2025-03-24 01:49] LABS: Appearance,Urine Cloudy (Clear); Bacteria,Urine Rare /hpf; Bilirubin,Urine Negative (Negative); Blood,Urine Negative (Negative); Color,Urine Yellow; Glucose,Urine (UA) Negative (Negative); Ketones,Urine Negative (Negative); Leukocyte Esterase,Urine Moderate (Negative); Mucus,Urine Few /hpf; Nitrite,Urine Negative (Negative); Protein,Urine 1+ (Negative); RBC,Urine 4 /hpf (0-5); Specific Gravity,Urine 1.033 (1.001-1.035); Squamous Epithelial Cell,Urine 24 /hpf (0-4); WBC,Urine 73 /hpf (0-5)
[2025-03-24 02:40] VITALS: BP 113/58; PULSE 94; RESP 16; TEMP 97
--- NOTE | 2025-04-01 11:49 | P.MSEPDOC ---
Presenting Problems - Arrival Data Date of Arrival on Unit: 03/24/25 Time of Arrival on Unit: 00:20 Mode of Transport: Ambulatory - Complaint OB-Reason for Admission/Chief Complaint: Rule Out SROM Comment: Patient presents to triage for possible SROM back pain and cramping Medical History - Information : 5 Para: 3 Term: 3 : 0 Abortions: Spontaneous or Elective: 1 Number of Living Children: 3 - Gestational Age Gestational Age by EMMANUEL (wks/days): 29 Weeks and 5 Days Review of Systems - Review of Systems Constitutional: No problems Breast: No problems ENT: No problems Cardiovascular: No problems Respiratory: No problems Gastrointestinal: No problems Genitourinary: No problems Musculoskeletal: No problems Neurological: No problems Skin: No problems Vital Signs - Temperature Temperature: 97.0 F Temperature Source: Temporal Artery Scan - Pulse Pulse Oximetery Pulse Rate: 94 Pulse Assessment Method: Pulse Oximetry - Respirations Respiratory Rate: 16 Oxygen Delivery Method: Room Air O2 Sat by Pulse Oximetry: 95 - Blood Pressure Right Arm Blood Pressure: 113/58 Blood Pressure Mean: 76 Blood Pressure Source: Automatic Cuff Maternal Triage Index - Maternal Triage Index Presenting for scheduled procedure w/no complaint: No - Stat/Priority 1 Stat Priority 1: No - Urgent/Priority 2 Urgent Priority 2: Yes Provider Notified: Juan Stewart Provider Notified Time: 01:52 Criteria Met for Priority 2: Patient presents to triage for possible SROM back pain and cramping Disposition - Disposition OB Disposition: Discharge to home Discharge Date: 03/24/25 Discharge Time: 01:54 I agree with the RN Medical Screening Exam: Yes Physician's MSE Comment: I have neither seen nor examined the patient. Case reviewed; plan agreed upon as documented in EMR&OBIX.: Yes Diagnosis: RELATED CONDITIONS, UNSPECIFIED, THIRD TRIMESTER
== END 2025-03-24 02:55 ==
LOC: FBPOP 00:20
PROVIDERS: ATTEND Obstetrics & Gynecology
DX: O26.893 Other specified pregnancy related conditions, third trimester (principal); Z3A.29 29 weeks gestation of pregnancy; Z91.040 Latex allergy status; Z91.010 Allergy to peanuts; Z91.013 Allergy to seafood
CPT/HCPCS: 59025; 84112; 81001; 87086; G0463; 99213

== ENCOUNTER 2025-04-16 02:46 | Outpatient (CLI) | payer OTHER ==
[2025-04-16 04:10] VITALS: BP 118/64; PULSE 107; RESP 16; TEMP 96.5
--- NOTE | 2025-05-05 13:34 | P.MSEPDOC ---
Presenting Problems - Arrival Data Date of Arrival on Unit: 04/16/25 Time of Arrival on Unit: 02:46 Mode of Transport: Wheelchair - Complaint OB-Reason for Admission/Chief Complaint: Possible Onset of Labor Comment: Patient came in with complaint of possible labor. When ask to describe, she stated that the tightening in her belly started around 0230, as well as back pain. rating the pain with tightening 10/10. Medical History - Information : 5 Para: 3 Term: 3 : 0 Abortions: Spontaneous or Elective: 1 Number of Living Children: 3 - Gestational Age Gestational Age by EMMANUEL (wks/days): 33 Weeks and 0 Days Review of Systems - Review of Systems Constitutional: No problems Breast: No problems ENT: No problems Cardiovascular: No problems Respiratory: No problems Gastrointestinal: No problems Genitourinary: No problems Musculoskeletal: No problems Neurological: No problems Skin: No problems Vital Signs - Temperature Temperature: 96.5 F Temperature Source: Temporal Artery Scan - Pulse Pulse Oximetery Pulse Rate: 107 Pulse Assessment Method: Pulse Oximetry - Respirations Respiratory Rate: 16 Oxygen Delivery Method: Room Air O2 Sat by Pulse Oximetry: 95 - Blood Pressure Right Arm Blood Pressure: 118/64 Blood Pressure Mean: 82 Blood Pressure Source: Automatic Cuff Medical Screen Scoring - Cervical Exam Membranes: Intact - Uterine Contractions Resting: Soft to palpation - Assessment - Baby A Baseline FHR: 150 Heart Rate - NICHD Category: Category I (Normal) NST: Reactive Physician Notification - Physician Notified Physician Notified Date: 04/16/25 Physician Notified Time: 03:29 Physician: Glory Funes New Order Received: Yes (Cervical check) - Notification Comment Comment: Rn reported on , 33 0/7 GA, reactive NST, cat I FHT, 2 contractions traced in 40 minutes, with 24 minutes between the 2. Patient complaint of abdominal tightening with corresponding back pain. rating pain with tightening 10/10. Orders to check the patient, if cervix is closed patient can be discharged home. Fingertip / Effacement: Thick / Station: High Maternal Triage Index - Maternal Triage Index Presenting for scheduled procedure w/no complaint: No - Stat/Priority 1 Stat Priority 1: No - Urgent/Priority 2 Urgent Priority 2: Yes Provider Notified: Glory Funes Provider Notified Time: 03:29 Criteria Met for Priority 2: Patient came in with complaint of possible labor. When ask to describe, she stated that the tightening in her belly started around 0230, as well as back pain. rating the pain with tightening 10/10. Disposition - Disposition OB Disposition: Discharge to home Discharge Date: 04/16/25 Discharge Time: 03:40 I agree with the RN Medical Screening Exam: Yes Physician's MSE Comment: I have neither seen nor examined the patient Case reviewed; plan agreed upon as documented in EMR&OBIX.: Yes Diagnosis: FALSE LABOR, UNSPECIFIED
== END 2025-04-16 03:40 | disposition home or self-care (01) ==
LOC: FBPOP 02:46
PROVIDERS: ATTEND Obstetrics & Gynecology
DX: O47.03 False labor before 37 completed weeks of gestation, third trimester (principal); Z3A.33 33 weeks gestation of pregnancy; Z91.040 Latex allergy status; Z91.010 Allergy to peanuts; Z91.013 Allergy to seafood
CPT/HCPCS: 59025; G0463; 99213

== ENCOUNTER 2025-04-29 00:25 | Emergency (ER) | payer OTHER ==
[2025-04-29 00:38] VITALS: BP 125/75; PULSE 90; RESP 18; TEMP 99
--- NOTE | 2025-04-29 01:31 | ED ---
General Adult HPI - General Chief complaint: Extremity Problem,Nontraumatic Stated complaint: 34 wks- Fall Time Seen by Provider: 04/29/25 01:30 Source: patient, EMS, RN notes reviewed Mode of arrival: EMS Limitations: no limitations - History of Present Illness Initial comments: 35-year-old female at approximately 34 weeks gestation presenting via EMS for fall 30 minutes ago. States she slipped on cherries at [place]. States she did not fall to the ground however her legs slid apart and she is experiencing bilateral groin and back pain. Also reports she is having contractions and abdominal pain. Denies vaginal bleeding or spotting. Follows with Dr. Stewart. No head injury. No other injuries. - Related Data Home Medications Medication Instructions Recorded Confirmed No Known Home Medications 04/16/25 04/29/25 Allergies Allergy/AdvReac Type Severity Reaction Status Date / Time Latex, Natural Rubber Allergy Swelling Verified 04/29/25 06:55 peanut Allergy Swelling Verified 04/29/25 06:55 shellfish derived [Shellfish] Allergy Swelling Verified 04/29/25 06:55 Review of Systems ROS Statement: Those systems with pertinent positive or pertinent negative responses have been documented in the HPI. ROS Other: All systems not noted in ROS Statement are negative. Past Medical History Past Medical History: Syncope History of Any Multi-Drug Resistant Organisms: None Reported Additional Past Surgical History / Comment(s): D&C Past Anesthesia/Blood Transfusion Reactions: No Reported Reaction Past Psychological History: No Psychological Hx Reported Smoking Status: Former smoker Past Alcohol Use History: None Reported Past Drug Use History: None Reported - Past Family History Mother Family Medical History: Diabetes Mellitus Additional Family Medical History / Comment(s): Reported that runs in family; grandparents have General Exam Limitations: no limitations General appearance: alert, in no apparent distress Head exam: Present: atraumatic, normocephalic, normal inspection Respiratory exam: Present: normal lung sounds bilaterally. Absent: respiratory distress, wheezes, rales, rhonchi, stridor Cardiovascular Exam: Present: regular rate, normal rhythm, normal heart sounds. Absent: systolic murmur, diastolic murmur, rubs, gallop, clicks GI/Abdominal exam: Present: soft Extremities exam: Present: normal inspection, full ROM, normal capillary refill. Absent: tenderness, joint swelling, calf tenderness Back exam: Present: normal inspection, full ROM Neurological exam: Present: alert, oriented X3 Psychiatric exam: Present: normal affect, normal mood Skin exam: Present: warm, dry, intact, normal color. Absent: rash Course Vital Signs 04/29/25 00:32 Temperature 99.0 F Pulse Rate 90 Respiratory 18 Rate Blood Pressure 125/75 O2 Sat by Pulse 97 Oximetry Medical Decision Making - Medical Decision Making Was pt. sent in by a medical professional or institution (, HAIR, FLAME ANNEALING MACHINE OPERATOR, urgent care, hospital, or alf...) When possible be specific @ -No Did you speak to anyone other than the patient for history (EMS, parent, family, police, friend...)? What history was obtained from this source @ -No Did you review nursing and triage notes (agree or disagree)? Why? @ -I reviewed and agree with nursing and triage notes Were old charts reviewed (outside hosp., previous admission, EMS record, old EKG, old radiological studies, urgent care reports/EKG's, alf records)? Report findings @ -No old charts were reviewed Differential Diagnosis (chest pain, altered mental status, abdominal pain women, abdominal pain men, vaginal bleeding, weakness, fever, dyspnea, syncope, headache, dizziness, GI bleed, back pain, seizure, CVA, palpatations, mental health, musculoskeletal)? @ -Differential Musculoskeletal Muscular strain, contusion, ligament sprain, fracture, arthritis, septic arthritis, bursitis, cellulitis, muscle spasm, nerve compression, DVT, arterial occlusion, herpes zoster, electrolyte abnormality, tumor.... This is not meant to be in all inclusive list EKG interpreted by me (3pts min.). @ -None X-rays interpreted by me (1pt min.). @ -None done CT interpreted by me (1pt min.). @ -None done U/S interpreted by me (1pt. min.). @ -None done What testing was considered but not performed or refused? (CT, X-rays, U/S, labs)? Why? @ -None What meds were considered but not given or refused? Why? @ -None Did you discuss the management of the patient with other professionals (professionals i.e. HAIR [employer], FLAME ANNEALING MACHINE OPERATOR, lab, RT, psych nurse, social media manager, high school math tutor, teacher, president and chief operating officer, rn case manager)? Give summary @ -I spoke with OB floor when patient was medically cleared and patient was transported upstairs for monitoring Was smoking cessation discussed for >3mins.? @ -No Was critical care preformed (if so, how long)? @ -No Were there social determinants of health that impacted care today? How? (Homelessness, low income, unemployed, alcoholism, drug addiction, transportation, low edu. Level, literacy, decrease access to med. care, prison, rehab)? @ -No Was there de-escalation of care discussed even if they declined (Discuss DNR or withdrawal of care, Hospice)? DNR status @ -No What co-morbidities impacted this encounter? (DM, HTN, Smoking, COPD, CAD, Cancer, CVA, ARF, Chemo, Hep., AIDS, mental health diagnosis, sleep apnea, morbid obesity)? @ -None Was patient admitted / discharged? Hospital course, mention meds given and route, prescriptions, significant lab abnormalities, going to OR and other pertinent info. @ -35-year-old female at approximately 34 weeks gestation presenting to the ER for groin pain/back pain status post injury 30 minutes ago. Patient slipped on cherries at [place] and her legs slid apart however patient did not fall to the ground. Patient was thorough history and examination was performed in room 29. Neurovascularly intact. Patient is experiencing what she describes as contractions and abdominal pain. Patient is medically cleared at this time and is transported upstairs to OB floor due to contractions. Case was discussed with my ED attending Dr. Johnson Undiagnosed new problem with uncertain prognosis? @ -No Drug Therapy requiring intensive monitoring for toxicity (Heparin, Nitro, Insulin, Cardizem)? @ -No Were any procedures done? @ -No Diagnosis/symptom? @ -Groin strain Acute, or Chronic, or Acute on Chronic? @ -Acute Uncomplicated (without systemic symptoms) or Complicated (systemic symptoms)? @ -Complicated Side effects of treatment? @ -No Exacerbation, Progression, or Severe Exacerbation? @ -No Poses a threat to life or bodily function? How? (Chest pain, [place], [place], pneumonia, PE, COPD, DKA, ARF, appy, cholecystitis, CVA, Diverticulitis, Homicidal, Suicidal, threat to staff... and all critical care pts) @ -No Disposition Clinical Impression: Groin strain Disposition: HOME SELF-CARE Is patient prescribed a controlled substance at d/c from ED?: No Referrals: Jerome Riggs MD [Primary Care Provider] - 1-2 days Time of Disposition: 18:33
== END 2025-04-29 01:39 | disposition home or self-care (01) ==
LOC: EC 00:25
DX: O9A.213 Injury, poisoning and certain other consequences of external causes complicating pregnancy, third trimester (principal); S39.011A Strain of muscle, fascia and tendon of abdomen, initial encounter; Z87.891 Personal history of nicotine dependence; Z91.040 Latex allergy status; Z91.010 Allergy to peanuts; Z91.013 Allergy to seafood; Z3A.34 34 weeks gestation of pregnancy; W01.0XXA Fall on same level from slipping, tripping and stumbling without subsequent striking against object, initial encounter
CPT/HCPCS: 99283

== ENCOUNTER 2025-04-29 01:35 | Outpatient (CLI) | payer OTHER ==
[2025-04-29] MEDS: LACTATED RINGERS 1,000 ML IV ONE ×2 (03:40→04:47)
[2025-04-29] MEDS: TERBUTALINE 1 MG/ML VIAL SQ PRN (04:45)
[2025-04-29 10:15] VITALS: BP 112/60; PULSE 96; RESP 16; TEMP 98.8
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
== END 2025-04-29 06:44 | disposition home or self-care (01) ==
LOC: FBPOP 01:35
PROVIDERS: ATTEND Obstetrics & Gynecology
DX: O9A.213 Injury, poisoning and certain other consequences of external causes complicating pregnancy, third trimester (principal); W19.XXXA Unspecified fall, initial encounter; Z3A.32 32 weeks gestation of pregnancy; Z91.010 Allergy to peanuts; Z91.040 Latex allergy status; Z91.013 Allergy to seafood
CPT/HCPCS: 59025; 96360; 96361; 96372; G0463; J3105; 99214

== ENCOUNTER 2025-04-29 06:51 | Emergency (ER) | payer OTHER ==
[2025-04-29] MEDS: ACETAMINOPHEN TAB 500 MG TAB PO STA (07:31)
--- NOTE | 2025-04-29 07:34 | ED ---
General Adult HPI - General Chief complaint: Fall Stated complaint: Fall- 34 wks Time Seen by Provider: 04/29/25 07:07 Source: patient, RN notes reviewed, old records reviewed Mode of arrival: ambulatory Limitations: no limitations - History of Present Illness Initial comments: 35-year-old female presenting for evaluation of fall. Patient had slipped in the grocery store falling into a position where she did the splits. She had significant pain and was transported by paramedics. She was seen in the emergency department and there was concern for labor as the patient was having abdominal pain back pain and contractions. She was taken up to obstetrics where she was evaluated she is currently 34 weeks and 6 days. She has had no vaginal bleeding. No loss of bowel or bladder function. Patient states this is painful on the bilateral groin region. She received terbutaline and fluid on OB and was ultimately discharged on bedrest. She presented to the emergency department with pain complaint. No pain medicine has been administered at the time my evaluation. - Related Data Home Medications Medication Instructions Recorded Confirmed No Known Home Medications 04/16/25 04/29/25 Allergies Allergy/AdvReac Type Severity Reaction Status Date / Time Latex, Natural Rubber Allergy Swelling Verified 04/29/25 06:55 peanut Allergy Swelling Verified 04/29/25 06:55 shellfish derived [Shellfish] Allergy Swelling Verified 04/29/25 06:55 Review of Systems ROS Statement: Those systems with pertinent positive or pertinent negative responses have been documented in the HPI. ROS Other: All systems not noted in ROS Statement are negative. Past Medical History Past Medical History: Syncope History of Any Multi-Drug Resistant Organisms: None Reported Additional Past Surgical History / Comment(s): D&C Past Anesthesia/Blood Transfusion Reactions: No Reported Reaction Past Psychological History: No Psychological Hx Reported Smoking Status: Never smoker Past Alcohol Use History: None Reported Past Drug Use History: None Reported - Past Family History Mother Family Medical History: Diabetes Mellitus Additional Family Medical History / Comment(s): Reported that runs in family; grandparents have General Exam Limitations: no limitations General appearance: alert, in no apparent distress Head exam: Present: atraumatic, normocephalic Eye exam: Present: normal appearance, PERRL ENT exam: Present: normal exam Neck exam: Present: normal inspection. Absent: tenderness, meningismus Respiratory exam: Present: normal lung sounds bilaterally. Absent: respiratory distress, wheezes Cardiovascular Exam: Present: regular rate, normal rhythm GI/Abdominal exam: Present: soft, other (Gravid). Absent: tenderness, guarding Extremities exam: Present: normal inspection, full ROM (Decreased range of motion at the hips with pain in the bilateral groin) Back exam: Absent: tenderness, CVA tenderness (R), CVA tenderness (L), paraspinal tenderness, vertebral tenderness Neurological exam: Present: alert, oriented X3, CN II-XII intact. Absent: motor sensory deficit Psychiatric exam: Present: normal affect, normal mood Skin exam: Present: warm, dry, intact. Absent: cyanosis, diaphoretic Course Vital Signs 04/29/25 06:52 Temperature 98.2 F Pulse Rate 99 Respiratory 18 Rate Blood Pressure 106/69 O2 Sat by Pulse 100 Oximetry - Reevaluation(s) Reevaluation #1: 04/29/25 08:45 Patient was able to bear weight but had significant pain. Therefore we discussed x-ray of the pelvis and the risks to the child. Mother informed of the risk and is agreeable. Medical Decision Making - Medical Decision Making Was pt. sent in by a medical professional or institution (, PA, AIR TRAFFIC SYSTEMS TECHNICIAN, urgent care, hospital, or skilled nursing...) When possible be specific @ -No Did you speak to anyone other than the patient for history (EMS, parent, family, police, friend...)? What history was obtained from this source @ -No Did you review nursing and triage notes (agree or disagree)? Why? @ -I reviewed and agree with nursing and triage notes Were old charts reviewed (outside hosp., previous admission, EMS record, old EKG, old radiological studies, urgent care reports/EKG's, skilled nursing records)? Report findings @ -No old charts were reviewed Differential Musculoskeletal Muscular strain, contusion, ligament sprain, fracture, arthritis, septic arthritis, bursitis, cellulitis, muscle spasm, nerve compression, DVT, arterial occlusion, herpes zoster, electrolyte abnormality, tumor.... This is not meant to be in all inclusive list EKG interpreted by me (3pts min.). @ -As above X-rays interpreted by me (1pt min.). @ -X-ray of the pelvis is obtained which is negative for dislocation or fracture, no traumatic injury. CT interpreted by me (1pt min.). @ -None done U/S interpreted by me (1pt. min.). @ -None done What testing was considered but not performed or refused? (CT, X-rays, U/S, labs)? Why? @ -None What meds were considered but not given or refused? Why? @ -None Did you discuss the management of the patient with other professionals (professionals i.e. DrSheila, PA, AIR TRAFFIC SYSTEMS TECHNICIAN, lab, RT, psych nurse, police worker, production troubleshooter, teacher, finance officer, renal case manager)? Give summary @ -No Was smoking cessation discussed for >3mins.? @ -No Was critical care preformed (if so, how long)? @ -No Were there social determinants of health that impacted care today? How? (Homelessness, low income, unemployed, alcoholism, drug addiction, transportation, low edu. Level, literacy, decrease access to med. care, [place] [facility], rehab)? @ -No Was there de-escalation of care discussed even if they declined (Discuss DNR or withdrawal of care, Hospice)? DNR status @ -No What co-morbidities impacted this encounter? (DM, HTN, Smoking, COPD, CAD, Cancer, CVA, ARF, Chemo, Hep., AIDS, mental health diagnosis, sleep apnea, morbid obesity)? @34 weeks Was patient admitted / discharged? Hospital course, mention meds given and route, prescriptions, significant lab abnormalities, going to OR and other pertinent info. @ -35-year-old female who is 34 weeks presenting for evaluation of bilateral groin pain. Patient was cleared by obstetrics and sent to the emergency department with persistent pain. Pain is consistent with a groin strain bilaterally however the patient had moderate pain and had pain with weightbearing therefore x-ray of the pelvis was obtained which was negative for fracture or dislocation. Patient will rest, take Tylenol for pain and follow closely with her OB. Undiagnosed new problem with uncertain prognosis? @ -No Drug Therapy requiring intensive monitoring for toxicity (Heparin, Nitro, Insulin, Cardizem)? @ -No Were any procedures done? @ -No Diagnosis/symptom? @Groin strain Acute, or Chronic, or Acute on Chronic? @Acute Uncomplicated (without systemic symptoms) or Complicated (systemic symptoms)? @ -Default Side effects of treatment? @ -No Exacerbation, Progression, or Severe Exacerbation? @ -No Poses a threat to life or bodily function? How? (Chest pain, [place], GA, pneumonia, PE, COPD, DKA, ARF, appy, cholecystitis, CVA, Diverticulitis, Homicidal, Suicidal, threat to staff... and all critical care pts) @ -No Disposition Clinical Impression: Fall, Groin strain Disposition: HOME SELF-CARE Condition: Fair Instructions (If sedation given, give patient instructions): Groin Strain (ED) Is patient prescribed a controlled substance at d/c from ED?: No Referrals: Juan Stewart MD [STAFF PHYSICIAN] - 1-2 days Time of Disposition: 08:56
--- NOTE | 2025-04-29 08:58 | XR ---
EXAMINATION TYPE: XR pelvis AP view DATE OF EXAM: 04/29/2025 8:44 AM COMPARISON: 05/06/2024. CLINICAL INDICATION: Female, 35 years old with history of fall; pain MERGED WITH [facility] TECHNIQUE: XR pelvis AP view, examined in a single projection. FINDINGS: There is no evidence of fracture or dislocation. There is no soft tissue abnormality. No a bnormal calcifications are present. The spine appears intact. The hips appear intact. No significant degeneration. IMPRESSION: No acute osseous pathology. Consider further evaluation CT if there remains concern. [facility], , 04/29/2025 8:55 AM
[2025-04-29 10:14] VITALS: BP 122/64; PULSE 92; RESP 16; TEMP 98.8
== END 2025-04-29 11:16 | disposition home or self-care (01) ==
LOC: EC 06:51
DX: O9A.213 Injury, poisoning and certain other consequences of external causes complicating pregnancy, third trimester (principal); S39.011A Strain of muscle, fascia and tendon of abdomen, initial encounter; Y92.512 Supermarket, store or market as the place of occurrence of the external cause; Z3A.34 34 weeks gestation of pregnancy; Z91.040 Latex allergy status
CPT/HCPCS: 72170; 99284

== ENCOUNTER 2025-05-01 03:13 | Inpatient (IN) | payer OTHER ==
[2025-05-01] MEDS ORDERED: TERBUTALINE 1 MG/ML VIAL SQ PRN (03:47)
[2025-05-01] MEDS: LACTATED RINGERS 1,000 ML IV ONE (04:01)
[2025-05-01] MEDS ORDERED: LIDOCAINE 0.5% (PF) 5 MG/ML (50 ML SDV) SQ PRN (04:51)
[2025-05-01] MEDS ORDERED: TRANEXAMIC 1,000 MG/100ML-NACL 1,000 MG in EMPTY BAG 1 BAG IV PRN (04:51)
[2025-05-01] MEDS ORDERED: CARBOPROST TROMETHAMINE 250 MCG/ML 1 ML AMP IM PRN (04:51)
[2025-05-01] MEDS ORDERED: METHYLERGONOVINE 0.2 MG/ML 1 ML AMP IM PRN (04:51)
[2025-05-01] MEDS ORDERED: OXYTOCIN 10 UNIT/ML 1 ML VIAL IM PRN (04:51)
[2025-05-01 04:58] LABS: Basophils # (A) 0.02 10*3/uL (0.00-0.10); Basophils % (A) 0.2 %; Eosinophils # (A) 0.21 10*3/uL (0.04-0.35); Eosinophils % (A) 2.0 %; HCT 29.0 % (37.2-46.3); HGB 9.2 g/dL (12.0-15.0); Lymphocytes # (A) 2.07 10*3/uL (0.90-5.00); Lymphocytes % (A) 19.7 %; MCH 24.5 pg (27.0-32.0); MCHC 31.7 g/dL (32.0-37.0); MCV 77.3 fL (80.0-97.0); Monocytes # (A) 0.62 10*3/uL (0.20-1.00); Monocytes % (A) 5.9 %; Neutrophils # (A) 7.51 10*3/uL (1.80-7.70); Neutrophils % (A) 71.4 %; Platelet Count 336 10*3/uL (140-440); RBC 3.75 10*6/uL (4.10-5.20); RDW 15.1 % (11.5-14.5); WBC 10.51 10*3/uL (4.50-10.00)
[2025-05-01] MEDS: PENICILLIN G POTASSIUM 5,000,000 UNIT in SODIUM CHLORIDE 0.9% 100 ML IVPB ONE (05:14)
[2025-05-01] MEDS: LACTATED RINGERS 1,000 ML IV SCH (05:15)
[2025-05-01] MEDS ORDERED: ROPIVACAINE 5 MG/ML 30 ML VIAL ONE (05:36)
[2025-05-01] MEDS ORDERED: fentaNYL (PF) 50 MCG/ML 5 ML AMP ONE (05:36)
[2025-05-01] MEDS ORDERED: SODIUM CHLORIDE 0.9% 250 ML BAG ONE (05:36)
--- NOTE | 2025-05-01 08:53 | P.HPOB ---
History of Present Illness H&P Date: 05/01/25 Chief Complaint: 35 and 1 sevenths weeks, labor, active The patient is a 35-year-old 5 para 3-0-1-3 admitted at 35 and 1 sevenths weeks as established by last menstrual period and confirmed by 7-week ultrasound. She is admitted in active labor. She initially presented at 5 cm and attempts to quell contractions with terbutaline failed with her cerv ix dilating to 6 cm. She was admitted for active management of labor. Her has otherwise been uncomplicated though she did sustain a recent fall with a groin strain. On labor delivery, all signs are reassuring with a category 1 heart rate tracing. Group B strep status is unknown. Obstetrical history: 5 para 3-0-1-3 with 3 previous term vaginal deliveries without complications. Current statistics are listed in history of present illness. EDC of 06/04/2025 was established by last menstrual period and confirmed by 7-week ultrasound. Laboratory workup demonstrates a blood type of A+ with a negative antibody screen. Rubella status is immune. The remainder of the laboratory workup was within normal limits. 1 hour Glucola was normal and group B strep status has not yet been determined. Gynecologic history: Unremarkable with no history of any STDs during this or in recent times. Review of Systems Review of systems is confined to history of present illness. Past Medical History Past Medical History: Syncope History of Any Multi-Drug Resistant Organisms: None Reported Additional Past Surgical History / Comment(s): D&C Past Anesthesia/Blood Transfusion Reactions: No Reported Reaction Past Psychological History: No Psychological Hx Reported Smoking Status: Never smoker Past Alcohol Use History: None Reported Past Drug Use History: None Reported - Past Family History Mother Family Medical History: Diabetes Mellitus Additional Family Medical History / Comment(s): Reported that runs in family; grandparents have Medications and Allergies Home Medications Medication Instructions Recorded Confirmed Type No Known Home Medications 04/16/25 05/01/25 History Allergies Allergy/AdvReac Type Severity Reaction Status Date / Time Latex, Natural Rubber Allergy Swelling Verified 05/01/25 03:15 peanut Allergy Swelling Verified 05/01/25 03:15 shellfish derived [Shellfish] Allergy Swelling Verified 05/01/25 03:15 Exam Vital Signs Temp Pulse Resp BP 05/01/25 05:18 97.3 F L 97 16 103/63 05/01/25 04:39 96.4 F L 98 16 114/56 Intake and Output 04/30/25 05/01/25 05/01/25 22:59 06:59 14:59 Other: # Voids 1 Weight 103.419 kg In general, this is a well-developed, well-nourished -[place] female in no acute distress. Her heart has a regular rhythm and rate without murmur. Her lungs are clear to auscultation bilaterally in all darling. Her abdomen is gravid, nondistended, has normal active bowel sounds, soft, nontender, and without any palpable masses aside from the uterine fundus. Her extremities are without any cyanosis, clubbing, or edema and are nontender to palpation bilaterally. Digital cervical examination demonstrates her cervix to approximately 6 cm dilated, 50 to 60% effaced, with the vertex and presentation of -2 station. Artificial rupture of membranes is carried out demonstrating clear fluid. Results Result Diagrams: 05/01/25 04:00 Abnormal Lab Results - Last 24 Hours (Table) 05/01/25 Range/Units 04:00 WBC 10.51 H (4.50-10.00) 10*3/uL RBC 3.75 L (4.10-5.20) 10*6/uL Hgb 9.2 L (12.0-15.0) g/dL Hct 29.0 L (37.2-46.3) % MCV 77.3 L (80.0-97.0) fL MCH 24.5 L (27.0-32.0) pg MCHC 31.7 L (32.0-37.0) g/dL Immature Gran # 0.08 H (0.00-0.04) 10*3/uL Assessment and Plan (1) Active labor Current Visit: Yes Status: Acute Code(s): O60.00 - LABOR WITHOUT DELIVERY, UNSPECIFIED TRIMESTER SNOMED Code(s): 9492062 Plan: Patient is 6 cm, decision has been made to proceed with delivery. Antibiotic prophylaxis was started shortly after the patient's admission given unknown group B strep status. She has now undergone artificial rupture of membranes. Should there be no progress over the next hour or 2, Pitocin augmentation will be started. She is a good candidate for either IV or epidural analgesia and an epidural has been placed for analgesia at this time. She will continue to have close maternal and surveillance and expectant management will be practiced.
[2025-05-01] MEDS: PENICILLIN G POTASSIUM 2,500,000 UNIT in SODIUM CHLORIDE 0.9% 100 ML IVPB SCH (09:12)
[2025-05-01] MEDS: OXYTOCIN 30 UNITS/500 ML NS 30 UNIT in SALINE 1 500ML.BAG IV SCH (09:15)
[2025-05-01] MEDS ORDERED: ZOLPIDEM 5 MG TAB PO PRN (11:00)
[2025-05-01] MEDS ORDERED: BENZOCAINE/MENTHOL SPRAY 1 GM/SPRAY AEROSOL TOPICAL PRN (11:00)
[2025-05-01] MEDS ORDERED: diphenhydrAMINE 25 MG CAP PO PRN (11:00)
[2025-05-01] MEDS ORDERED: SIMETHICONE 80 MG CHEWABLE PO PRN (11:00)
[2025-05-01] MEDS ORDERED: LANOLIN CREAM 1 GM TUBE TOPICAL PRN (11:00)
[2025-05-01] MEDS ORDERED: diphenhydrAMINE 50 MG/ML 1 ML VIAL IVP PRN ×2 (11:00)
[2025-05-01] MEDS ORDERED: OXYTOCIN 30 UNITS/500 ML NS 30 UNIT in SALINE 1 500ML.BAG IV SCH (11:00)
[2025-05-01] MEDS ORDERED: HYDROCORTISONE 2.5% RECTAL CREAM 30 GM TUBE RECTAL PRN (11:00)
--- NOTE | 2025-05-01 11:05 | P.PROBDLV ---
Vaginal Delivery Note - . Vaginal Delivery Note: The patient is a 35-year-old 5 para 3-0-1-3 admitted at 35 and 1 sevenths weeks by good dating parameters. She is admitted in active labor with all signs reassuring, category 1 heart rate tracing. Her has been essentially uncomplicated and group B strep status is not yet known. As a result, she had antibiotic prophylaxis started upon admission. An epidural catheter was placed for analgesia. She at 6-7 cm had artificial rupture of membranes carried out demonstrating clear fluid. She was progressing slowly and then suddenly progressed to complete and had a precipitous delivery as Dr. Mckeon was walking into the room. She was delivered of a viable male infant with Apgars of 8 at 1 minute and 9 at 5 minutes, weight not yet determined. The placenta was delivered spontaneously, intact, and grossly normal with a grossly normal three-vessel cord. There is a very small perineal laceration which approximated on its own and was not repaired. Estimated blood loss for the case was approximately 150 mL. There were no complications aside from the precipitous nature of the delivery. All sponge, instrument, and needle counts were correct. Both mother and are resting comfortably in recovery though it is likely that the will be taken to special care nursery for further evaluation.
[2025-05-01] MEDS: IBUPROFEN 800 MG TAB PO PRN (11:37)
[2025-05-01] MEDS: SENNOSIDES-DOCUSATE SODIUM 1 EACH TAB PO SCH (20:17)
[2025-05-01] MEDS: ACETAMINOPHEN TAB 500 MG TAB PO PRN (22:46)
[2025-05-02 06:31] LABS: Basophils # (A) 0.03 10*3/uL (0.00-0.10); Basophils % (A) 0.3 %; Eosinophils # (A) 0.24 10*3/uL (0.04-0.35); Eosinophils % (A) 2.5 %; HCT 28.8 % (37.2-46.3); HGB 9.0 g/dL (12.0-15.0); Lymphocytes # (A) 2.24 10*3/uL (0.90-5.00); Lymphocytes % (A) 23.4 %; MCH 24.1 pg (27.0-32.0); MCHC 31.3 g/dL (32.0-37.0); MCV 77.2 fL (80.0-97.0); Monocytes # (A) 0.57 10*3/uL (0.20-1.00); Monocytes % (A) 6.0 %; Neutrophils # (A) 6.44 10*3/uL (1.80-7.70); Neutrophils % (A) 67.3 %; Platelet Count 288 10*3/uL (140-440); RBC 3.73 10*6/uL (4.10-5.20); RDW 15.2 % (11.5-14.5); WBC 9.57 10*3/uL (4.50-10.00)
[2025-05-02 08:19] VITALS: BP 107/73; PULSE 88; RESP 16; TEMP 98.1
--- NOTE | 2025-05-02 08:34 | P.PNOBGVD ---
Subjective - Subjective Patient reports: Reports appetite normal, Reports voiding normally, Reports pain well controlled, Reports ambulating normally : doing well, in NICU (Requiring oxygen support.) Objective - Latest Vital Signs Latest vital signs: Vital Signs Temp Pulse Pulse Resp BP Pulse Ox 05/02/25 08:00 98.1 F 88 16 107/73 98 05/02/25 04:00 98 F 74 18 110/58 05/01/25 20:00 98.3 F 80 18 102/69 05/01/25 16:00 96.9 F L 89 16 99/66 05/01/25 12:57 96.1 F L 80 16 125/58 05/01/25 12:42 85 16 124/80 05/01/25 12:27 80 16 118/62 05/01/25 12:12 85 16 116/52 05/01/25 11:57 76 16 117/67 05/01/25 11:42 78 16 114/67 05/01/25 11:27 74 16 109/67 05/01/25 11:12 82 16 104/67 05/01/25 10:57 98.4 F 83 16 122/69 Intake and Output 05/01/25 05/02/25 05/02/25 22:59 06:59 14:59 Other: # Voids 2 1 # Bowel Movements 1 - Exam Extremities: Present: normal Abdomen: Present: normal appearance, soft Uterus: Present: normal, firm - Labs Labs: Abnormal Lab Results - Last 24 Hours (Table) 05/02/25 Range/Units 06:12 RBC 3.73 L (4.10-5.20) 10*6/uL Hgb 9.0 L (12.0-15.0) g/dL Hct 28.8 L (37.2-46.3) % MCV 77.2 L (80.0-97.0) fL MCH 24.1 L (27.0-32.0) pg MCHC 31.3 L (32.0-37.0) g/dL MPV 9.0 L (9.5-12.2) fL Immature Gran # 0.05 H (0.00-0.04) 10*3/uL Assessment and Plan (1) Active labor Current Visit: Yes Status: Acute Code(s): O60.00 - LABOR WITHOUT DELIVERY, UNSPECIFIED TRIMESTER SNOMED Code(s): 7420407 (2) Precipitous delivery, delivered (current hospitalization) Current Visit: Yes Status: Acute Code(s): O62.3 - PRECIPITATE LABOR SNOMED Code(s): 16732684 (3) Normal spontaneous vaginal delivery Current Visit: No Status: Acute Code(s): O80 - ENCOUNTER FOR FULL-TERM UNCOMPLICATED DELIVERY SNOMED Code(s): 88601484 Plan: Continue routine care. The infant remains in the special care nursery for ongoing treatment of issues of prematurity, specifically oxygen support. I would anticipate discharge home tomorrow pending no complications.
--- NOTE | 2025-05-02 16:56 | P.DS ---
Providers Date of admission: 05/01/25 04:42 Expected date of discharge: 05/02/25 Attending physician: Juan Stewart Primary care physician: Stated None - Discharge Diagnosis(es) (1) Active labor Status: Acute (2) Precipitous delivery, delivered (current hospitalization) Status: Acute (3) Normal spontaneous vaginal delivery Status: Acute Hospital Course: The patient is a 35-year-old 5 para 3-0-1-3 admitted at 35 and 1 sevenths weeks by good dating parameters reviewed admitted in active labor. We initially attempted to arrest labor with terbutaline which failed and she progressed to 6 cm at which time the decision was made to proceed with labor. An epidural catheter was placed for analgesia. She underwent artificial rupture of membranes for clear fluid. She remained at approximately 8 cm for some time and then suddenly was complete and pushed precipitously to a normal spontaneous vaginal delivery of a viable 2895 g baby boy with Apgars of 8 at 1 minute and 9 at 5 minutes. The was ultimately taken to the special care nursery for ongoing treatment for issues of prematurity. The patient's course was unremarkable with vital signs remaining stable and her temperature was afebrile throughout. She was deemed stable for discharge on day #1 and was discharged home to follow-up in the office in 6 weeks time routinely. Discharge instructions included calling for any significantly increased bleeding or foul-smelling lochia, significantly increased fever or abdominal pain, perineal complaints, breast complaints, or anything else of concern to her. She was additionally instructed to have nothing in the vagina for at least 6 weeks time to include intercourse. She understood her instructions and agrees to follow-up as noted above. Discharge medications included only [id number] analgesic pain medications. Maternal blood type is a positive and rubella status is immune. Procedures: #1. Terbutaline administration #2. Epidural analgesia #3. Artificial rupture of membranes #4. Precipitous normal spontaneous vaginal delivery Patient Condition at Discharge: Good Plan - Discharge Summary New Discharge Prescriptions: No Action No Known Home Medications Discharge Medication List No Known Home Medications 04/16/25 [History] Follow up Appointment(s)/Referral(s): Juan Stewart MD [STAFF PHYSICIAN] - 06/19/25 1:15 pm Patient Instructions/Handouts: Vaginal Delivery (DC) Discharge Disposition: HOME SELF-CARE
== END 2025-05-02 15:10 | disposition home or self-care (01) | DRG 560 ==
LOC: FBPOP 03:13 → 4FBP 04:42
PROVIDERS: ADMIT Obstetrics & Gynecology; ATTEND Obstetrics & Gynecology
PROC: 10E0XZZ Delivery of Products of Conception, External Approach (ICD-10-PCS; principal; 2025-05-01)
PROC: 10907ZC Drainage of Amniotic Fluid, Therapeutic from Products of Conception, Via Natural or Artificial Opening (ICD-10-PCS; 2025-05-01)
DX: O60.00 Preterm labor without delivery, unspecified trimester (principal); O62.3 Precipitate labor; Z37.0 Single live birth; Z3A.35 35 weeks gestation of pregnancy
CPT/HCPCS: 59025; 85025; 86850; 86900; 86901; 88307; 96365; 99214